=== PATIENT | male | born 1935 | race Caucasian/White ===

== ENCOUNTER 2021-09-25 15:08 | Inpatient (IN) ==
--- NOTE | 2021-09-25 15:20 | Emergency Department Note ---
Impression & Plan Closed hip fracture, Fall, RAFY (acute kidney injury) ED Provider Note NAME: TUYET OBREGON AGE: 86 SEX: M : 1935 ARRIVES VIA: Ambulance INFORMANT: Patient ED PROVIDER(S): Phillip Najera DO CHIEF COMPLAINT: hip/leg pain HPI: Patient is an 86-year-old male who presents to the ER with past medical history sinus bradycardia, atrial bigeminy, hypertension, and esophageal carcinoma who was getting up from the chair and fell. He lost his balance and fell. He denies hitting his head or neck. He does not feel dizzy or lightheaded. He has no chest pain or shortness of breath. No belly pain. Notes pain is focal in his left hip. He notes he was sitting there for a while and went to get up quickly and lost his balance. No other complaints at this time. ROS: See above HPI for pertinent positives & negatives. A total of 10 systems reviewed and were otherwise negative. PAST MEDICAL HISTORY:See Below PAST SURGICAL HISTORY:See Below FAMILY HISTORY:See Below SOCIAL HISTORY:See Below HOME MEDICATIONS:See Below ALLERGIES:See Below VITALS:See Below PHYSICAL EXAMINATION: GENERAL: alert, well appearing, well nourished, no distress, non-toxic HEAD: normal cephalic, atraumatic EYE EXAM: normal conjunctiva, PERRL and EOM's grossly intact NECK: non-tender CHEST: stable to compression anteriorly and posteriorly LUNGS: clear to auscultation. Normal chest wall mechanics HEART: no murmurs, S1 normal and S2 normal ABDOMEN: abdomen soft, non-tender, normo-active bowel sounds, no masses, no rebound or guarding. PELVIS: stable to compression anteriorly and posteriorly BACK: Back is symmetrical on inspection and there is no deformity, no midline t enderness, no CVA tenderness. UPPER EXTREMITIES: full active and passive range of motion of all joints without tenderness to palpation LOWER EXTREMITIES: No tenderness throughout entire right lower extremity. DPs and PTs 2 out of 4 bilaterally. Tenderness with palpation over the left hip and with range of motion of the left hip. No tenderness throughout. Mid or distal femur, knee, tib-fib or left ankle. NEURO EXAM: Normal sensorium, cranial nerves II-XII grossly intact, normal speech, no gross weakness of arms, no gross weakness of legs. GCS: 15. MEDICAL DECISION MAKING: Patient is an 86-year-old male who presents the ER following a mechanical fall onto his left hip. Denies hitting his head or neck.IV was established blood work was obtained. Labs show no significant leukocytosis. Mild anemia 10. BMP with creatinine 1.6. LFTs bilirubin was unremarkable. Lipase was normal. COVID was negative. X-rays of the hip pelvis and left femur show left femoral neck fracture. Patient initially declined pain medications but eventually was agreeable and was given IV morphine. He was updated bedside. Discussed with the hospitalist Dr. Eng for further evaluation. Did not consult orthopedics as he initially was unsure of which group you want to follow-up with. Triage Nursing notes reviewed. Limited review of prior medical records performed Vital Signs: reviewed and remarkable for no significant abnormalities Differential diagnosis: Differential diagnoses include major intracranial, cervical, spinal, thoracic, abdominal, pelvic and neurologic injury. Fracture, contusion, sprain, strain, l aceration, abrasions included as well. ER treatment provided: See below Diagnostics interpreted by me: ECG:Sinus rhythm rate of 76 Normal axis PVCs present QTC 425 Cardiac Monitoring: An order was placed for continuous cardiac monitoring. The monitor shows a rate of 80 with sinus rhythm. Laboratory studies: As stated above and show below. Imaging studies: Trays of the left femur, hip and pelvis show left femoral neck fracture Consultation(s): D/w Dr. Barfield for further evaluation Procedures: none Critical Care: None Past Med/Surg History Medical History Altered bowel habits Atrial bigeminy BPPV (benign paroxysmal positional vertigo) Constipation CHRONIC PROBLEM Dysphagia Elevated PSA History of colon polyps History of nonmelanoma skin cancer Hypertension Ileus Loss of appetite Nocturia Premature supraventricular beats Right Achilles tendinitis Sinus bradycardia Varicose vein of leg LEFT - NO PROBLEMS WITH Weight loss Surgical History H/O esophagogastroduodenoscopy History of cataract surgery bilt History of colonoscopy Hx of tonsillectomy S/P hernia repair Bilateral inguinal hernia repair S/P rotator cuff repair HX RIGHT S/P tooth extraction HX Status post Mohs surgery Family History Father , 93yo Diabetes Colonic polyp No cancer Mother , 87yo Alzheimer disease Daughter No problems noted. 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 Required: No Beliefs That Will Affect Care: None marital status: Current Living Situation: Spouse 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 How many Children do You have: 0 Feels Safe at Home: Yes Childhood Exposure to Second-Hand Smoke: No caffeine: Yes (coffee) during the past year weight has: decreased > 10 lbs Dental Care, Regularly: Yes Physical Activity Frequency: 1-2 Times per Week Physical Activity Frequency Comment: walking Seatbelt Use: always Sunscreen Use: Yes Do you think of yourself as: straight/heterosexual Assistive Devices: Glasses Allergies Allergies Allergy/AdvReac Type Severity Reaction Status Date / Time No Known Allergies Allergy Verified 08/17/21 10:59 Home Meds Home Medications Medication Instructions Recorded Confirmed wheat dextrin 3 gram/3.5 gram oral 1 pkt PO QPM 12/11/18 08/17/21 powder (Best Fiber) ondansetron HCl 8 mg tablet 8 mg PO Q8H PRN 07/24/21 08/17/21 prochlorperazine maleate 10 mg 10 mg PO Q8H PRN 07/24/21 08/17/21 tablet (Compazine) polyethylene glycol 3350 17 17 g PO DAILY PRN 08/07/21 08/17/21 gram/dose oral powder (Miralax) loratadine 10 mg tablet (Claritin) 10 mg PO DAILY 08/17/21 08/17/21 pantoprazole 40 mg tablet,delayed 40 mg PO BID 09/25/21 release (Protonix) Previous Rx's Medication Instructions Recorded amlodipine 5 mg tablet 5 mg PO QPM #90 tabs 06/27/21 trazodone 50 mg tablet 50 mg PO DAILY #90 tabs 07/05/21 lisinopril 5 mg tablet 5 mg PO QPM #90 tabs 08/22/21 Results & Data (ED) Vital Signs Vital Signs - 24 hr 09/25/21 15:20 09/25/21 15:16 09/25/21 15:25 Temperature 36.7 C Temperature Source Oral Pulse Rate 82 84 Pulse Rate [Apical] 82 Pulse Rate from SpO2 Sensor Respiratory Rate 16 17 Respiratory Effort / Characteristics Non-Labored Spontaneous Non-Labored Spontaneous Respiratory Depth Normal Normal Blood Pressure 147/75 H Blood Pressure [Right Arm] Blood Pressure Mean 99 Blood Pressure Mean [Right Arm] Pulse Oximetry 98 100 100 Oxygen Delivery Method Room Air Room Air Room Air Sepsis Recent Fever Within 48 Hours No Sepsis New/Unexplained Change in Mental Status No Sepsis Action Taken by Nursing No Action Required 09/25/21 15:30 09/25/21 15:30 09/25/21 16:00 Temperature Temperature Source Pulse Rate 88 Pulse Rate [Apical] Pulse Rate from SpO2 Sensor Respiratory Rate 22 Respiratory Effort / Characteristics Respiratory Depth Blood Pressure 159/80 H 132/71 Blood Pressure [Right Arm] Blood Pressure Mean 106 91 Blood Pressure Mean [Right Arm] Pulse Oximetry Oxygen Delivery Method Sepsis Recent Fever Within 48 Hours Sepsis New/Unexplained Change in Mental Status Sepsis Action Taken by Nursing 09/25/21 16:00 09/25/21 16:30 09/25/21 16:30 Temperature Temperature Source Pulse Rate 78 74 Pulse Rate [Apical] Pulse Rate from SpO2 Sensor 70 73 Respiratory Rate 16 19 Respiratory Effort / Characteristics Respiratory Depth Blood Pressure 132/60 Blood Pressure [Right Arm] Blood Pressure Mean 84 Blood Pressure Mean [Right Arm] Pulse Oximetry 97 100 Oxygen Delivery Method Sepsis Recent Fever Within 48 Hours Sepsis New/Unexplained Change in Mental Status Sepsis Action Taken by Nursing 09/25/21 17:30 09/25/21 17:00 09/25/21 17:00 Temperature Temperature Source Pulse Rate 76 Pulse Rate [Apical] 83 Pulse Rate from SpO2 Sensor 76 Respiratory Rate 22 21 Respiratory Effort / Characteristics Non-Labored Spontaneous Respiratory Depth Normal Blood Pressure 135/77 Blood Pressure [Right Arm] 142/109 H Blood Pressure Mean 96 Blood Pressure Mean [Right Arm] 120 Pulse Oximetry 100 100 Oxygen Delivery Method Room Air Sepsis Recent Fever Within 48 Hours Sepsis New/Unexplained Change in Mental Status Sepsis Action Taken by Nursing 09/25/21 17:30 09/25/21 17:30 09/25/21 18:00 Temperature Temperature Source Pulse Rate 78 Pulse Rate [Apical] Pulse Rate from SpO2 Sensor 78 Respiratory Rate 23 Respiratory Effort / Characteristics Respiratory Depth Blood Pressure 142/109 H 121/61 Blood Pressure [Right Arm] Blood Pressure Mean 120 81 Blood Pressure Mean [Right Arm] Pulse Oximetry 100 Oxygen Delivery Method Sepsis Recent Fever Within 48 Hours Sepsis New/Unexplained Change in Mental Status Sepsis Action Taken by Nursing 09/25/21 18:00 Temperature Temperature Source Pulse Rate 75 Pulse Rate [Apical] Pulse Rate from SpO2 Sensor 75 Respiratory Rate 18 Respiratory Effort / Characteristics Respiratory Depth Blood Pressure Blood Pressure [Right Arm] Blood Pressure Mean Blood Pressure Mean [Right Arm] Pulse Oximetry 100 Oxygen Delivery Method Sepsis Recent Fever Within 48 Hours Sepsis New/Unexplained Change in Mental Status Sepsis Action Taken by Nursing Laboratory Data Result diagrams: 09/25/21 15:28 09/25/21 15:28 Lab Results 09/25/21 09/25/21 09/25/21 Range/Units 15:28 15:28 17:42 WBC 7.54 (4.8-10.8) K/ul RBC 3.03 L (4.63-6.08) M/uL Hgb 10.2 L (14.0-18.0) g/dl Hct 29.9 L (40.1-51.0) % MCV 98.7 (80.0-100.0) fL MCH 33.7 (25.0-34.0) pg MCHC 34.1 (32.0-36.0) g/dL RDW Std Deviation 57.1 H (36.4-46.3) fL RDW Coeff of Stefan 15.9 H (11.5-14.5) % Plt Count 214 (130-400) K/uL MPV 8.7 L (9.4-12.4) fL Immature Gran % (Auto) 0.7 % Neut % (Auto) 66.9 % Lymph % (Auto) 21.9 % [place] % (Auto) 10.3 % Eos % (Auto) 0.1 % Baso % (Auto) 0.1 % Neut # (Auto) 5.04 (1.4-6.5) K/uL Lymph # (Auto) 1.65 (1.2-3.4) K/uL [place] # (Auto) 0.78 (0.24-0.82) K/uL Eos # (Auto) 0.01 (0-0.50) K/uL Baso # (Auto) 0.01 (0-0.2) K/uL Immature Gran # (Auto) 0.05 H (0.00-0.02) K/uL Sodium 135 L (136-145) mmol/L Potassium 4.6 (3.5-5.1) mmol/L Chloride 104 (98-107) mmol/L Carbon Dioxide 23 (21-32) mmol/L Anion Gap 8 (3-11) BUN 42 H (6-23) mg/dl Creatinine 1.64 H (0.6-1.4) mg/dl Est Cr Clr Drug Dosing 33.2 ml/min Est GFR ( Amer) 43.9 ml/min Est GFR (Non-Af Amer) 37.8 ml/min BUN/Creatinine Ratio 25.6 H (10-20) Glucose 103 H (70-99(Fasting)) mg/dl Calcium 9.4 (8.5-10.1) mg/dl Total Bilirubin 0.5 (0.2-1.0) mg/dl AST 14 (13-39) U/L ALT 15 (7-52) U/L Alkaline Phosphatase 33 L (34-104) U/L Total Protein 6.3 (6.0-8.3) gm/dl Albumin 3.7 (3.4-5.0) gm/dl Globulin 2.6 (2.5-4.0) gm/dl Albumin/Globulin Ratio 1.4 (0.9-2) Lipase 53 (11-82) U/L SARS-CoV-2, RNA, NAAT NEGATIVE (NEGATIVE) Administered Medications Discontinued Medications Morphine Sulfate (Morphine Sulfate 4 Mg/Ml 1 Ml Carp\\Vial) 4 mg IV NOW STA Stop: 09/25/21 18:29 Last Admin: 09/25/21 18:33 Dose: 4 mg Documented By: RDD Ondansetron HCl (Ondansetron Inj 2 Mg/Ml 2 Ml Vial) 4 mg IV NOW STA Stop: 09/25/21 18:29 Last Admin: 09/25/21 18:35 Dose: 4 mg Documented By: RDD Imaging Data Radiologist's Impression: Chest X-Ray 09/25/21 15:16 XR chest 1V portable CLINICAL HISTORY: Chest Pain. COMPARISON STUDY: No previous studies for comparison. TECHNIQUE: 1 view of the chest FINDINGS: Single frontal view of the chest demonstrates the cardiomediastinal silhouette to be within normal limits. The lungs are clear of alveolar opacities. There is no evidence for pleural effusion. There is no evidence for vascular congestion. There is no acute osseous pathology. IMPRESSION: 1. No acute cardiopulmonary disease. ACT 112: Negative or not required by law. Electronically signed by: Andrzej Plascencia M.D. 09/25/2021 5:00 PM Femur X-Ray 09/25/21 15:16 XR femur LT 2V routine CLINICAL HISTORY: l leg pain. Status post fall COMPARISON STUDY: No previous studies for comparison. TECHNIQUE: AP and lateral left femur views FINDINGS: This is again a limited examination due to external rotation of the hip. Bones: There is again suspicion of a fracture through the base of the left femoral neck. No other evidence for fracture is seen. There is no lytic or blastic lesion. Joints: There is again mild narrowing of the hip joint space. Joint space narrowing and degenerative changes are also seen involving the knee joint. There is no evidence for an intra-articular effusion at the knee joint. The bones are in anatomic alignment. Soft tissues: There is no focal soft tissue abnormality. There is no radiopaque foreign body. IMPRESSION: 1. The study is again limited by external rotation at the hip. There is again suspicion of a fracture through the base of the left femoral neck. ACT 112: Negative or not required by law. Electronically signed by: Andrzej Plascencia M.D. 09/25/2021 5:00 PM Hip/Pelvis X-Ray 09/25/21 15:16 XR hip LT 2V w pelvis CLINICAL HISTORY: l hp pain. Status post fall COMPARISON STUDY: No previous studies for comparison. TECHNIQUE: AP pelvis and single view of the left hip FINDINGS: Bones: This is a limited examination as the left hip is externally rotated. There is suspicion of a fracture through the base of the femoral neck. Standard hip films with internal fixation are necessary. The remaining bones are intact. There is no lytic or blastic lesion. Joints: Mild narrowing of the left hip joint space superiorly. There is moderate narrowing of the joint space on the right. The bones are in anatomic alignment. Soft tissues: There is no focal soft tissue abnormality. There is no radiopaque foreign body. IMPRESSION: 1. Limited examination due to external rotation of the left hip. Suspicion of a fracture of the base of the left femoral neck. Standard left hip films with internal fixation are necessary. CT of the pelvis/left hip could also be obtai marin for further evaluation ACT 112: Negative or not required by law. Electronically signed by: Andrzej Plascencia M.D. 09/25/2021 4:58 PM Discharge Plan Visit Data Chief Complaint: Fall Stated Complaint: Fall ED Provider: Phillip Najera Discharge Problem: Closed hip fracture, Fall, RAFY (acute kidney injury) Forms Stand Alone Forms: [facility] [employer] Prescriptions Prescriptions: No Action ondansetron HCl 8 mg tablet 8 mg PO Q8H PRN prochlorperazine maleate [Compazine] 10 mg tablet 10 mg PO Q8H PRN polyethylene glycol 3350 [Miralax] 17 gram/dose powder 17 g PO DAILY PRN loratadine [Claritin] 10 mg tablet 10 mg PO DAILY amlodipine 5 mg tablet 5 mg PO QPM Qty: 90 1RF trazodone 50 mg tablet 50 mg PO DAILY Qty: 90 3RF lisinopril 5 mg tablet 5 mg PO QPM Qty: 90 3RF Best Fiber 3 gram/3.5 gram powder 1 pkt PO QPM pantoprazole [Protonix] 40 mg tablet,delayed release (DR/EC) 40 mg PO BID Referrals Referrals: Adalberto Salcido DO [Primary Care Provider] -
[2021-09-25 15:36] LABS: Basophils # (auto) 0.01 K/uL (0-0.2); Basophils % (auto) 0.1 %; Eosinophils # (auto) 0.01 K/uL (0-0.50); Eosinophils % (auto) 0.1 %; Hematocrit (blood only) 29.9 % (40.1-51.0); Hemoglobin 10.2 g/dl (14.0-18.0); Immature Granulocytes # (auto) 0.05 K/uL (0.00-0.02); Immature Granulocytes % (auto) 0.7 %; Lymphocytes # (auto) 1.65 K/uL (1.2-3.4); Lymphocytes % (auto) 21.9 %; Mean Corpuscular Hemoglobin 33.7 pg (25.0-34.0); Mean Corpuscular Hgb Conc 34.1 g/dL (32.0-36.0); Mean Corpuscular Volume 98.7 fL (80.0-100.0); Mean Platelet Volume 8.7 fL (9.4-12.4); Monocytes # (auto) 0.78 K/uL (0.24-0.82); Monocytes % (auto) 10.3 %; Neutrophils # (auto) 5.04 K/uL (1.4-6.5); Neutrophils % (auto) 66.9 %; Platelet Count 214 K/uL (130-400); RDW Coefficient of Variation 15.9 % (11.5-14.5); RDW Standard Deviation 57.1 fL (36.4-46.3); Red Blood Count 3.03 M/uL (4.63-6.08); White Blood Count 7.54 K/ul (4.8-10.8)
[2021-09-25 15:54] LABS: Albumin Globulin Ratio 1.4 (0.9-2); Albumin Level 3.7 gm/dl (3.4-5.0); BUN Creatinine Ratio 25.6 (10-20); Bilirubin,Total 0.5 mg/dl (0.2-1.0); Calcium 9.4 mg/dl (8.5-10.1); Creatinine Clr Calc Pharmacy 33.2 ml/min; Est GFR (African American) 43.9 ml/min; Est GFR (Non-African American) 37.8 ml/min; Globulin 2.6 gm/dl (2.5-4.0); Potassium 4.6 mmol/L (3.5-5.1); Total Protein 6.3 gm/dl (6.0-8.3)
--- NOTE | 2021-09-25 17:00 | XRay Report ---
XR hip LT 2V w pelvis CLINICAL HISTORY: l hp pain. Status post fall COMPARISON STUDY: No previous studies for comparison. TECHNIQUE: AP pelvis and single view of the left hip FINDINGS: Bones: This is a limited examination as the left hip is externally rotated. There is suspicion of a f racture through the base of the femoral neck. Standard hip films with internal fixation are necessary . The remaining bones are intact. There is no lytic or blastic lesion. Joints: Mild narrowing of the left hip joint space superiorly. There is moderate narrowing of the makenna nt space on the right. The bones are in anatomic alignment. Soft tissues: There is no focal soft tissue abnormality. There is no radiopaque foreign body. IMPRESSION: 1. Limited examination due to external rotation of the left hip. Suspicion of a fracture of the base of the left femoral neck. Standard left hip films with internal fixation are necessary. CT of the pel vis/left hip could also be obtained for further evaluation ACT 112: Negative or not required by law. Electronically signed by: Andrzej Plascencia M.D. 09/25/2021 4:58 PM
--- NOTE | 2021-09-25 17:01 | XRay Report ---
XR femur LT 2V routine CLINICAL HISTORY: l leg pain. Status post fall COMPARISON STUDY: No previous studies for comparison. TECHNIQUE: AP and lateral left femur views FINDINGS: This is again a limited examination due to external rotation of the hip. Bones: There is again suspicion of a fracture through the base of the left femoral neck. No other tyson dence for fracture is seen. There is no lytic or blastic lesion. Joints: There is again mild narrowing of the hip joint space. Joint space narrowing and degenerative changes are also seen involving the knee joint. There is no evidence for an intra-articular effusion at the knee joint. The bones are in anatomic alignment. Soft tissues: There is no focal soft tissue abnormality. There is no radiopaque foreign body. IMPRESSION: 1. The study is again limited by external rotation at the hip. There is again suspicion of a fracture through the base of the left femoral neck. ACT 112: Negative or not required by law. Electronically signed by: Andrzej Plascencia M.D. 09/25/2021 5:00 PM
--- NOTE | 2021-09-25 17:01 | XRay Report ---
XR chest 1V portable CLINICAL HISTORY: Chest Pain. COMPARISON STUDY: No previous studies for comparison. TECHNIQUE: 1 view of the chest FINDINGS: Single frontal view of the chest demonstrates the cardiomediastinal silhouette to be within normal li mits. The lungs are clear of alveolar opacities. There is no evidence for pleural effusion. There is no evidence for vascular congestion. There is no acute osseous pathology. IMPRESSION: 1. No acute cardiopulmonary disease. ACT 112: Negative or not required by law. Electronically signed by: Andrzej Plascencia M.D. 09/25/2021 5:00 PM
--- NOTE | 2021-09-25 17:48 | History & Physical Report ---
Date of Service September 25, 2021 Assessment & Plan (1) Femoral neck fracture: Plan: I did review the films personally and see the patient has a displaced left femoral neck fracture Will admit to a general medical bed We will keep n.p.o. after midnight We will asked orthopedics to evaluate for possible surgical intervention (2) Esophageal adenocarcinoma: Plan: Patient is currently being evaluated, I did review records and see that the patient is typically treated by Dr. Gloria. I will hold off on further evaluation for the time being while more immediate medical issues are addressed Patient states that he is currently on a soft diet, has been slowly advance from thick liquids and feels he can handle mechanical soft. Therefore will order as appropriate, will keep n.p.o. after midnight as noted above. (3) Hypertension: Plan: Continue medications as ordered including lisinopril, amlodipine Plan I did discuss CODE STATUS with the patient, he would like to be a DNR/DNI History of Present Illness Chief Complaint: Fall Primary Care Provider: Adalberto Salcido DO This is an 86-year-old male with past medical history of a distal esophageal adenocarcinoma being treated by [place] that presents status post fall. Patient is accompanied by his and a good historian. Patient is live in independent living at the [facility]. Patient states that he tends to get orthostatic when he stands and typically will change positions slowly. However, earlier today he stood up quickly. He does not think he passed out but he does not have any recollection outside of being on the floor. He says it happened very quickly. He landed on his left side had significant pain in his hip and pelvis after this. On evaluation emergency room, patient was found to have a displaced left femoral neck fracture. Patient is now being admitted for further treatment of this. Patient tells me that he does not have significant pain unless he moves. He denies any other systemic symptoms such as chest pain, shortness of breath, palpitations, fever or chills. Of note, patient tells me that he had an appointment for surgical evaluation and a PET scan at [facility] on 09/28 and was told that he will likely need to reschedule these appointments. Allergies Allergy/AdvReac Type Severity Reaction Status Date / Time No Known Allergies Allergy Verified 08/17/21 10:59 Home Medications Medication Instructions Recorded Confirmed Type wheat dextrin 3 gram/3.5 gram oral 1 pkt PO QPM 12/11/18 08/17/21 History powder (Best Fiber) pantoprazole 40 mg tablet,delayed 40 mg PO DAILY #30 tabs 05/31/21 08/17/21 Rx release (Protonix) amlodipine 5 mg tablet 5 mg PO QPM #90 tabs 06/27/21 08/17/21 Rx trazodone 50 mg tablet 50 mg PO DAILY #90 tabs 07/05/21 08/17/21 Rx ondansetron HCl 8 mg tablet 8 mg PO Q8H PRN 07/24/21 08/17/21 History prochlorperazine maleate 10 mg 10 mg PO Q8H PRN 07/24/21 08/17/21 History tablet (Compazine) dexamethasone 4 mg tablet 4 mg PO .COMPLEX 08/07/21 08/17/21 History polyethylene glycol 3350 17 17 g PO DAILY PRN 08/07/21 08/17/21 History gram/dose oral powder (Miralax) loratadine 10 mg tablet (Claritin) 10 mg PO DAILY 08/17/21 08/17/21 History lisinopril 5 mg tablet 5 mg PO QPM #90 tabs 08/22/21 Rx Past Med/Surg History Medical History Altered bowel habits Atrial bigeminy BPPV (benign paroxysmal positional vertigo) Constipation CHRONIC PROBLEM Dysphagia Elevated PSA History of colon polyps History of nonmelanoma skin cancer Hypertension Ileus Loss of appetite Nocturia Premature supraventricular beats Right Achilles tendinitis Sinus bradycardia Varicose vein of leg LEFT - NO PROBLEMS WITH Weight loss Surgical History H/O esophagogastroduodenoscopy History of cataract surgery bilt History of colonoscopy Hx of tonsillectomy S/P hernia repair Bilateral inguinal hernia repair S/P rotator cuff repair HX RIGHT S/P tooth extraction HX Status post Mohs surgery Family History Father , 93yo Diabetes Colonic polyp No cancer Mother , 87yo Alzheimer disease Daughter No problems noted. 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 Beliefs That Will Affect Care: None marital status: Current Living Situation: Spouse 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 How many Children do You have: 0 Feels Safe at Home: Yes Childhood Exposure to Second-Hand Smoke: No caffeine: Yes (coffee) during the past year weight has: decreased > 10 lbs Dental Care, Regularly: Yes Physical Activity Frequency: 1-2 Times per Week Physical Activity Frequency Comment: walking Seatbelt Use: always Sunscreen Use: Yes Do you think of yourself as: straight/heterosexual Assistive Devices: Glasses Review of Systems Constitutional: no fever, no chills, no weakness, no weight loss and no weight gain Eyes: as per Subjective / HPI Respiratory: no cough, no chest congestion, no dyspnea and no dyspnea on exertion Cardiovascular: + orthopnea and + lightheadedness; no chest pain, no palpitations, no syncope and no edema Gastrointestinal: no abdominal pain, no nausea, no vomiting, no constipation and no diarrhea/loose stools Musculoskeletal: + joint pain; no back pain, no neck pain, no stiffness and no myalgia Integumentary: no rash Neurologic: no gait abnormality, no unsteadiness, no falls and no generalized weakness Physical Exam Constitutional: cooperative; no acute distress Neck: trachea midline, no thyromegaly Respiratory: normal respiratory effort Auscultation: lungs clear to auscultation bilaterally; no crackles, no rales, no rhonchi and no wheezes Cardiovascular: Rate/Rhythm: regular rate and regular rhythm Heart Sounds: normal S1 and normal S2 Gastrointestinal (Abdomen): Inspection/Auscultation: abdomen normal to inspection Percussion/Palpation: abdomen soft; abdomen nontender, no guarding, abdomen not rigid and no hepatosplenomegaly Musculoskeletal: Left extremity externally rotated, did not examine further secondary to patient discomfort Skin: no rashes, warm and dry Results & Data Results & Data ([facility]) Vital Signs (Past 12 Hours) Vital Signs Temp Pulse Pulse Resp BP Pulse Ox O2 Del Method 09/25/21 16:30 74 19 100 09/25/21 16:30 132/60 09/25/21 16:00 78 16 97 09/25/21 16:00 132/71 09/25/21 15:30 88 22 09/25/21 15:30 159/80 H 09/25/21 15:25 82 17 100 Room Air 09/25/21 15:16 84 100 Room Air 09/25/21 15:20 36.7 C 82 16 147/75 H 98 Room Air Laboratory Results Laboratory Results WBC 7.54 K/ul (4.8-10.8) 09/25/21 15:28 RBC 3.03 M/uL (4.63-6.08) L 09/25/21 15:28 Hgb 10.2 g/dl (14.0-18.0) L 09/25/21 15:28 Hct 29.9 % (40.1-51.0) L 09/25/21 15:28 MCV 98.7 fL (80.0-100.0) 09/25/21 15:28 MCH 33.7 pg (25.0-34.0) 09/25/21 15:28 MCHC 34.1 g/dL (32.0-36.0) 09/25/21 15:28 RDW Std Deviation 57.1 fL (36.4-46.3) H 09/25/21 15:28 RDW Coeff of Stefan 15.9 % (11.5-14.5) H 09/25/21 15:28 Plt Count 214 K/uL (130-400) 09/25/21 15:28 MPV 8.7 fL (9.4-12.4) L 09/25/21 15:28 Immature Gran % (Auto) 0.7 % 09/25/21 15:28 Neut % (Auto) 66.9 % 09/25/21 15:28 Lymph % (Auto) 21.9 % 09/25/21 15:28 [place] % (Auto) 10.3 % 09/25/21 15:28 Eos % (Auto) 0.1 % 09/25/21 15:28 Baso % (Auto) 0.1 % 09/25/21 15:28 Neut # (Auto) 5.04 K/uL (1.4-6.5) 09/25/21 15: Lymph # (Auto) 1.65 K/uL (1.2-3.4) 09/25/21 15:28 [place] # (Auto) 0.78 K/uL (0.24-0.82) 09/25/21 15: Eos # (Auto) 0.01 K/uL (0-0.50) 09/25/21 15:28 Baso # (Auto) 0.01 K/uL (0-0.2) 09/25/21 15: Immature Gran # (Auto) 0.05 K/uL (0.00-0.02) H 09/25/21 15:28 Sodium 135 mmol/L (136-145) L 09/25/21 15: Potassium 4.6 mmol/L (3.5-5.1) 09/25/21 15: Chloride 104 mmol/L (98-107) 09/25/21 15:28 Carbon Dioxide 23 mmol/L (21-32) 09/25/21 15:28 Anion Gap 8 (3-11) 09/25/21 15:28 BUN 42 mg/dl (6-23) H 09/25/21 15:28 Creatinine 1.64 mg/dl (0.6-1.4) H 09/25/21 15:28 Est Cr Clr Drug Dosing 33.2 ml/min 09/25/21 15:28 Est GFR ( Amer) 43.9 ml/min 09/25/21 15:28 Est GFR (Non-Af Amer) 37.8 ml/min 09/25/21 15:28 BUN/Creatinine Ratio 25.6 (10-20) H 09/25/21 15:28 Glucose 103 mg/dl (70-99(Fasting)) H 09/25/21 15:28 Calcium 9.4 mg/dl (8.5-10.1) 09/25/21 15:28 Total Bilirubin 0.5 mg/dl (0.2-1.0) 09/25/21 15:28 AST 14 U/L (13-39) 09/25/21 15:28 ALT 15 U/L (7-52) 09/25/21 15:28 Alkaline Phosphatase 33 U/L (34-104) L 09/25/21 15:28 Total Protein 6.3 gm/dl (6.0-8.3) 09/25/21 15:28 Albumin 3.7 gm/dl (3.4-5.0) 09/25/21 15:28 Globulin 2.6 gm/dl (2.5-4.0) 09/25/21 15:28 Albumin/Globulin Ratio 1.4 (0.9-2) 09/25/21 15:28 Lipase 53 U/L (11-82) 09/25/21 15:28 Impressions Chest X-Ray 09/25/21 15:16 XR chest 1V portable CLINICAL HISTORY: Chest Pain. COMPARISON STUDY: No previous studies for comparison. TECHNIQUE: 1 view of the chest FINDINGS: Single frontal view of the chest demonstrates the cardiomediastinal silhouette to be within normal limits. The lungs are clear of alveolar opacities. There is no evidence for pleural effusion. There is no evidence for vascular congestion. There is no acute osseous pathology. IMPRESSION: 1. No acute cardiopulmonary disease. ACT 112: Negative or not required by law. Electronically signed by: Andrzej Plascencia M.D. 09/25/2021 5:00 PM Femur X-Ray 09/25/21 15:16 XR femur LT 2V routine CLINICAL HISTORY: l leg pain. Status post fall COMPARISON STUDY: No previous studies for comparison. TECHNIQUE: AP and lateral left femur views FINDINGS: This is again a limited examination due to external rotation of the hip. Bones: There is again suspicion of a fracture through the base of the left femoral neck. No other evidence for fracture is seen. There is no lytic or blastic lesion. Joints: There is again mild narrowing of the hip joint space. Joint space na rrowing and degenerative changes are also seen involving the knee joint. There is no evidence for an intra-articular effusion at the knee joint. The bones are in anatomic alignment. Soft tissues: There is no focal soft tissue abnormality. There is no radiopaque foreign body. IMPRESSION: 1. The study is again limited by external rotation at the hip. There is again suspicion of a fracture through the base of the left femoral neck. ACT 112: Negative or not required by law. Electronically signed by: Andrzej Plascencia M.D. 09/25/2021 5:00 PM Hip/Pelvis X-Ray 09/25/21 15:16 XR hip LT 2V w pelvis CLINICAL HISTORY: l hp pain. Status post fall COMPARISON STUDY: No previous studies for comparison. TECHNIQUE: AP pelvis and single view of the left hip FINDINGS: Bones: This is a limited examination as the left hip is externally rotated. There is suspicion of a fracture through the base of the femoral neck. Standard hip films with internal fixation are necessary. The remaining bones are intact. There is no lytic or blastic lesion. Joints: Mild narrowing of the left hip joint space superiorly. There is moderate narrowing of the joint space on the right. The bones are in anatomic alignment. Soft tissues: There is no focal soft tissue abnormality. There is no radiopaque foreign body. IMPRESSION: 1. Limited examination due to external rotation of the left hip. Suspicion of a fracture of the base of the left femoral neck. Standard left hip films with internal fixation are necessary. CT of the pelvis/left hip could also be obtained for further evaluation ACT 112: Negative or not required by law. Electronically signed by: Andrzej Plascencia M.D. 09/25/2021 4:58 PM PG Care Time/CCT Total # of Minutes Spent Total Time Spent with Patient: Total time spent is greater than 50% in coordination of care (as documented) at patient's floor/unit and/or counseling patient: Coding Level of Care Code 93437 Initial Inpt Care Lvl 3 Diagnoses Femoral neck fracture S72.009A Esophageal adenocarcinoma C15.9 Hypertension I10
[2021-09-25] MEDS ORDERED: ONDANSETRON INJ 2 MG/ML 2 ML VIAL IV STA (18:28)
[2021-09-25] MEDS ORDERED: MoRPHine SULFATE 4 MG/ML 1 ML CARP\\VIAL IV STA (18:28)
[2021-09-25] MEDS ORDERED: HYDROmorphone INJ 0.5 MG/0.5 ML SYR IV PRN (23:17)
[2021-09-25] MEDS ORDERED: lisinopril 5 MG TAB PO SCH (23:17)
[2021-09-25] MEDS ORDERED: SODIUM CHLORIDE 0.9% 1000ML 1,000 ML IV SCH (23:45)
[2021-09-25] MEDS: HEPARIN SOD 5,000 UNIT/0.5 ML VIAL SQ SCH (23:51)
[2021-09-25] MEDS: amLODIPine BESYLATE 5 MG TAB PO SCH (23:51)
[2021-09-25] MEDS: PSYLLIUM or GUAR GUM FIBER POWDER PACKET PO SCH (23:51)
[2021-09-26] MEDS: HEPARIN SOD 5,000 UNIT/0.5 ML VIAL SQ SCH ×2 (06:15→13:02)
--- NOTE | 2021-09-26 06:16 | Electrocardiogram Report ---
Test Reason : Blood Pressure : / mmHG Vent. Rate : 076 BPM Atrial Rate : 076 BPM P-R Int : 182 ms QRS Dur : 072 ms QT Int : 378 ms P-R-T Axes : 044 045 058 degrees QTc Int : 425 ms Poor data quality, interpretation may be adversely affected Sinus rhythm with sinus arrhythmia with occasional Premature ventricular complexes Otherwise normal ECG When compared with ECG of 31-OCT-1999 20:38, Premature ventricular complexes are now Present Confirmed by Dami Russo ([id number]) on 09/26/2021 6:16:18 AM Referred By: REFERRED SELF Confirmed By:Dami Russo
[2021-09-26 06:45] LABS: Basophils # (auto) 0.02 K/uL (0-0.2); Basophils % (auto) 0.2 %; Eosinophils # (auto) 0.03 K/uL (0-0.50); Eosinophils % (auto) 0.3 %; Hematocrit (blood only) 29.6 % (40.1-51.0); Hemoglobin 10.1 g/dl (14.0-18.0); Immature Granulocytes # (auto) 0.05 K/uL (0.00-0.02); Immature Granulocytes % (auto) 0.6 %; Lymphocytes # (auto) 1.46 K/uL (1.2-3.4); Lymphocytes % (auto) 16.8 %; Mean Corpuscular Hemoglobin 33.7 pg (25.0-34.0); Mean Corpuscular Hgb Conc 34.1 g/dL (32.0-36.0); Mean Corpuscular Volume 98.7 fL (80.0-100.0); Mean Platelet Volume 9.2 fL (9.4-12.4); Monocytes # (auto) 1.01 K/uL (0.24-0.82); Monocytes % (auto) 11.6 %; Neutrophils # (auto) 6.14 K/uL (1.4-6.5); Neutrophils % (auto) 70.5 %; Platelet Count 213 K/uL (130-400); RDW Coefficient of Variation 15.4 % (11.5-14.5); RDW Standard Deviation 55.8 fL (36.4-46.3); White Blood Count 8.71 K/ul (4.8-10.8)
[2021-09-26 06:55] LABS: INR 1.1 (0.9-1.1); Prothrombin Time 11.4 Seconds (9.0-12.0)
[2021-09-26 07:10] LABS: BUN Creatinine Ratio 24.1 (10-20); Creatinine Clr Calc Pharmacy 38.7 ml/min; Est GFR (African American) 54.5 ml/min; Magnesium 1.8 mg/dl (1.7-2.4); Potassium 4.5 mmol/L (3.5-5.1)
[2021-09-26] MEDS ORDERED: PANTOprazole 40 MG TAB PO SCH (09:00)
[2021-09-26] MEDS ORDERED: PANTOprazole 40 MG in SYRINGE 0 ML IV SCH (09:15)
--- NOTE | 2021-09-26 12:43 | Hospitalist Progress Note ---
Date of Service September 26, 2021 Assessment & Plan (1) Femoral neck fracture: Plan: 86 year old male w/ esophageal adenocarcinoma, HTN, BPPV, and elevated PSA, and parox afib who presents s/; fall and has left femoral neck fracture. Per hip xray, Suspicion of a fracture of the base of the left femoral neck. Ortho consulted. Patient went to OR today and is now s/p bipolar hip hemiarthroplasty of his left hip. Pain control: Srinivasa tylenol 1000mg PO TID. Oxycodone 5mg q6h prn for 7-10 pain (0.5 mg IV Dilaudid q6 prn if not tolerating PO). (2) Esophageal adenocarcinoma: Plan: Follows Dr. Gloria at [facility]. (3) Hypertension: Plan: Continue medications as ordered including lisinopril, amlodipine (4) Hyponatremia: Plan: Subacute x 2 months. Mild. Follow BMP. Differential includes low intake vs SIADH. Plan Diet, fluids: HH. NSS 80/hr. ppx: per ortho code: DNR/DNI dispo: med surg Admission and Anticipated Discharge Date Admission Date: September 25, 2021 Supervising Physician Co-Signing Physician Notes I also saw the patient and confirmed hubbard portions the history and physical examination. I agree with the impression and plan as noted in the resident documentation. 86-year-old male was admitted through the emergency department yesterday after a ground-level fall in which he suffered a left hip fracture. Patient has a recent past medical history of esophageal adenocarcinoma for which she has been followed by the [facility]. This morning upon exam, his and daughter at bedside. He reports some discomfort but it is bearable. Exam 156/73, 91, 20, 37.1, 90% room air Heart regular rate and rhythm with occasional ectopy Respirations nonlabored, lungs clear throughout Lower extremities without edema. SCDs are in place Data Hemoglobin 10, platelet count 213 Sodium 133, potassium 4.5, BUN 33, creatinine 1.37 Chest x-ray shows no acute disease process EKG shows sinus rhythm with occasional PVC Impression and Plan Hip fracture, left femoral neck Esophageal adenocarcinoma, status post radiation therapy, chemotherapy with Taxol/carboplatin Orthopedics consult Subjective Patient was seen at bedside. 6/10 pain at left hip. No numbness/tingling/weakness. No fever, chills, cp, sob. Review of Systems Review of Systems: All systems reviewed & are unremarkable except as noted in HPI & below Physical Exam Physical Exam: General: Grossly A&O. NAD. Cooperative. HEENT: Atraumatic, normocephalic. EOMI Pulm: CTAB and laterally. -wheezes, -rales, -rhonchi. No respiratory distress. Cardiac: RRR, -mrg. No LE edema. Abdominal: Nontender, nondistended, soft. Msk: Moving feet and toes. Results & Data Results & Data ([facility]) Vital Signs (Past 12 Hours) Vital Signs Temp Pulse Resp BP Pulse Ox O2 Del Method 09/26/21 08:25 Room Air 09/26/21 08:26 36.7 C 71 18 134/70 100 Room Air Resident Activity Tracking Resident Involvement: Resident Care Provided Care Provided: Adult Hospital Medicine
[2021-09-26] MEDS ORDERED: SODIUM CHLORIDE 0.9% 250 ML IV PRN (13:53)
--- NOTE | 2021-09-26 14:10 | Anesthesiology Consultation ---
Date of Service September 26, 2021 Assessment & Plan Chart Review Chart Review: Acceptable Risk for Surgery and Patient NOT seen in Pre Admission Testing Consults Requested none ASA ASA4 Proposed Anesthesia Anesthesia Type: General Additional Comments: covid test neg. History Surgery Operation Date: 09/26/21 09:00 Proposed Procedures p Left Hip Hemiarthroplasty - Francesco Armendariz MD Height/Weight Height: 6 ft Weight: 68.2 kg Allergies Allergy/AdvReac Type Severity Reaction Status Date / Time No Known Allergies Allergy Verified 09/25/21 18:59 Medications Home Medications Medication Instructions Recorded Confirmed Last Taken wheat dextrin 3 gram/3.5 gram oral 1 pkt PO QPM 12/11/18 09/25/21 05/22/21 powder (Best Fiber) amlodipine 5 mg tablet 5 mg PO QPM #90 tabs 06/27/21 09/25/21 Unknown ondansetron HCl 8 mg tablet 8 mg PO Q8H PRN Nausea And Vomiting 07/24/21 09/25/21 Unknown prochlorperazine maleate 10 mg 10 mg PO Q8H PRN Nausea And 07/24/21 09/25/21 Unknown tablet (Compazine) Vomiting polyethylene glycol 3350 17 17 g PO DAILY PRN Constipation 08/07/21 09/25/21 Unknown gram/dose oral powder (Miralax) loratadine 10 mg tablet (Claritin) 10 mg PO DAILY 08/17/21 09/25/21 Unknown lisinopril 5 mg tablet 5 mg PO QPM #90 tabs 08/22/21 09/25/21 Unknown megestrol 400 mg/10 mL (40 mg/mL) 0 mg PO TID 09/25/21 09/25/21 Unknown oral suspension pantoprazole 40 mg tablet,delayed 40 mg PO BID 09/25/21 09/25/21 Unknown release (Protonix) trazodone 50 mg tablet 50 mg PO HS 09/25/21 09/25/21 Unknown Active Medications Generic Name Dose Route Start Last Admin Trade Name Freq PRN Reason Stop Dose Admin Amlodipine Besylate 5 mg 09/25/21 23:17 09/25/21 23:51 Amlodipine Besylate 5 Mg Tab PO 10/25/21 23:16 5 mg QPM GLORIA Administration Heparin Sodium (Porcine) 5,000 units 09/25/21 23:17 09/26/21 13:02 Heparin Sod 5,000 Unit/0.5 Ml Vial SQ 10/25/21 23:16 Not Given Q8 GLORIA Hydromorphone HCl 0.5 mg 09/25/21 23:17 09/25/21 23:45 Hydromorphone Inj 0.5 Mg/0.5 Ml Syr IV 10/09/21 23:16 0.5 mg Q6H PRN Administration Pain Pantoprazole Sodium 40 mg 09/27/21 09:00 09/26/21 10:13 Pantoprazole 40 Mg Tab PO 10/27/21 08:59 40 mg QAM GLORIA Administration Psyllium Hydrophilic Mucilloid 1 pkt 09/25/21 23:17 09/25/21 23:51 Psyllium Or Guar Gum Fiber Powder Packet PO 10/25/21 23:16 1 pkt QPM GLORIA Administration Past Medical History Medical History Altered bowel habits Atrial bigeminy BPPV (benign paroxysmal positional vertigo) Constipation CHRONIC PROBLEM Dysphagia Elevated PSA History of colon polyps History of nonmelanoma skin cancer Hypertension Ileus Loss of appetite Nocturia Premature supraventricular beats Right Achilles tendinitis Sinus bradycardia Varicose vein of leg LEFT - NO PROBLEMS WITH Weight loss Exercise / Class Metabolic Activity III < 4 Walking/Shop/Light housework Past Family History Family History Father , 93yo Diabetes Colonic polyp No cancer Mother , 87yo Alzheimer disease Daughter No problems noted. Other No family history of adverse response to anesthesia Denies family history of Ovarian cancer Prostate cancer Myocardial infarction Breast cancer Lung cancer Colorectal cancer Stroke Past Surgical History Surgical History H/O esophagogastroduodenoscopy History of cataract surgery bilt History of colonoscopy Hx of tonsillectomy S/P hernia repair Bilateral inguinal hernia repair S/P rotator cuff repair HX RIGHT S/P tooth extraction HX Status post Mohs surgery Past Anesthesia History No Hx of Anesthesia Complications and No Family Hx of Anesthesia Complications History of PONV No Hx of PONV and No Hx of Motion Sickness Social History Smoking Status: Never smoker Hx Alcohol Use: No Alcohol type: beer alcohol intake frequency: holidays/special occasions only Alcohol Intake Frequency Comment: pt has not drank alcohol in 6 months Hx Substance Use: No substance use type: does not use Physical Exam Vital Signs Last Vital Signs Temp 36.7 C 09/26/21 08:26 Pulse 71 09/26/21 08:26 Resp 18 09/26/21 08:26 BP 134/70 09/26/21 08:26 Pulse Ox 100 09/26/21 08:26 O2 Del Method 09/26/21 08:26 Testing Laboratory Results 09/26/21 06:14 09/26/21 06:14 PT 11.4 Seconds (9.0-12.0) 09/26/21 06:14 INR 1.1 (0.9-1.1) 09/26/21 06:14 Electrocardiogram Date: 09/25/21 Findings: + NSR @ (SR @ 78 w/SA w/occas. PVC's) Chest X-Ray Date: 09/25/21 Findings: + NAD Echocardiogram Date: 09/29/20 EF: 55% LV Function: normal RWMA: + none Other Findings: + LVH (mild) Valvular Disease: + no significant valvular disease mild TR Mild RV systolic pressure increase @ 30-40 torr
[2021-09-26] MEDS ORDERED: PROPOFOL IV EMULSION 10 MG/ML 20 ML VIAL IV ONE (15:17)
[2021-09-26] MEDS ORDERED: LIDOCAINE 2% MPF LOCAL 5 ML VIAL INFIL ONE (15:17)
--- NOTE | 2021-09-26 15:19 | Orthopedic Consultation ---
Date of Service September 26, 2021 Assessment & Plan (1) Femoral neck fracture: NPO. He was educated on this fracture and treatment options. He wants to have his hip fixed. Procedure was explained including risks, benefits, and alternatives to surgery. consent obtained. Dr. Armendariz will be doing the surgery today, specifically cemented bipolar hip hemiarthroplasty. History of Present Illness Reason for Consultation: . Requesting Physician: . Attending Physician: Levar Penn DO . 86 year old patient admitted yesterday with a left hip fracture. He states he was going to sit on his chair at home and fell, injuring his hip. He was brought to [facility] and xrays showed a displaced femoral neck fracture. Denies any hip pain prior to this fall. Allergies Allergy/AdvReac Type Severity Reaction Status Date / Time No Known Allergies Allergy Verified 09/25/21 18:59 Home Medications Medication Instructions Recorded Confirmed Type wheat dextrin 3 gram/3.5 gram oral 1 pkt PO QPM 12/11/18 09/25/21 History powder (Best Fiber) amlodipine 5 mg tablet 5 mg PO QPM #90 tabs 06/27/21 09/25/21 Rx ondansetron HCl 8 mg tablet 8 mg PO Q8H PRN Nausea And Vomiting 07/24/21 09/25/21 History prochlorperazine maleate 10 mg 10 mg PO Q8H PRN Nausea And 07/24/21 09/25/21 History tablet (Compazine) Vomiting polyethylene glycol 3350 17 17 g PO DAILY PRN Constipation 08/07/21 09/25/21 History gram/dose oral powder (Miralax) loratadine 10 mg tablet (Claritin) 10 mg PO DAILY 08/17/21 09/25/21 History lisinopril 5 mg tablet 5 mg PO QPM #90 tabs 08/22/21 09/25/21 Rx megestrol 400 mg/10 mL (40 mg/mL) 0 mg PO TID 09/25/21 09/25/21 History oral suspension pantoprazole 40 mg tablet,delayed 40 mg PO BID 09/25/21 09/25/21 History release (Protonix) trazodone 50 mg tablet 50 mg PO HS 09/25/21 09/25/21 History Past Med/Surg History Medical History Altered bowel habits Anemia Atrial bigeminy BPPV (benign paroxysmal positional vertigo) Constipation CHRONIC PROBLEM Dysphagia Elevated PSA 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) History of colon polyps History of nonmelanoma skin cancer Hypertension Ileus Loss of appetite Nocturia Premature supraventricular beats Right Achilles tendinitis Sinus bradycardia Varicose vein of leg LEFT - NO PROBLEMS WITH Weight loss Surgical History H/O esophagogastroduodenoscopy History of cataract surgery bilt History of colonoscopy Hx of tonsillectomy S/P hernia repair Bilateral inguinal hernia repair S/P rotator cuff repair HX RIGHT S/P tooth extraction HX Status post Mohs surgery Family History Father , 93yo Diabetes Colonic polyp No cancer Mother , 87yo Alzheimer disease Daughter No problems noted. Other No family history of adverse response to anesthesia Denies family history of Ovarian cancer Prostate cancer Myocardial infarction Breast cancer Lung cancer Colorectal cancer Stroke Social History Smoking Status: Never smoker Second Hand Exposure: No; Hx Alcohol Use: No Hx Substance Use: No Preferred Language: Trinidadian Communication Ability: Effective Visual Impairment: Limited Hearing Ability: Normal Urologist Md Required: No Beliefs That Will Affect Care: None marital status: Current Living Situation: Spouse and Other Current Living Situation Comment: lives in Independent living at [place] 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 How many Children do You have: 0 Other Information That Helps Us Care for You: No Feels Safe at Home: Yes Safety Concerns: Feels Safe At This Time Childhood Exposure to Second-Hand Smoke: No caffeine: Yes (coffee) during the past year weight has: decreased > 10 lbs Dental Care, Regularly: Yes Physical Activity Frequency: 1-2 Times per Week Physical Activity Frequency Comment: walking Seatbelt Use: always Sunscreen Use: Yes Do you think of yourself as: straight/heterosexual Assistive Devices: None Assistive Devices Comment: pt independent at baseline Review of Systems All systems reviewed & are unremarkable except as noted in HPI & below. Physical Exam . Alert and oriented. NAD Left leg: shortened and externally rotated. NVI. No motion of his hip today. He can dorsiflex and plantarflex. Results & Data Results & Data Laboratory Results . Diagnostic Findings . xrays show a displaced femoral neck fracture PG Care Time/CCT Total # of Minutes Spent Total Time Spent with Patient: Total time spent is greater than 50% in coordination of care (as documented) at patient's floor/unit and/or counseling patient: Coding Level of Care Code 21605 Inpt Consult Level 4 Diagnoses Femoral neck fracture S72.009A
[2021-09-26] MEDS ORDERED: EPINEPHrine INJ 1 MG/ML AMP ONE (15:20)
[2021-09-26] MEDS ORDERED: BUPIVACAINE 0.5 % 5 MG/1 ML MPF 30ML VIAL ONE (15:21)
[2021-09-26] MEDS ORDERED: fentaNYL citrate 100 MCG/2 ML VIAL IV PRN (15:25)
[2021-09-26] MEDS ORDERED: PHENYLEPHRINE 100MCG/ML 5ML SYR IV PRN (15:25)
[2021-09-26] MEDS ORDERED: ATROPINE SULFATE 0.1 MG/ML 10ML SYR IV PRN (15:25)
[2021-09-26] MEDS ORDERED: MEPERIDINE HCL 25 MG/ML CARP/VIAL IV PRN (15:25)
[2021-09-26] MEDS ORDERED: ePHEDrine sulfate 50 MG/ML AMP IV PRN (15:25)
[2021-09-26] MEDS ORDERED: LABETALOL HCL IV 5 MG/ML 20ML IV PRN (15:25)
[2021-09-26] MEDS ORDERED: HYDROmorphone INJ 1 MG/ML SYRINGE IV PRN (15:25)
[2021-09-26] MEDS ORDERED: ONDANSETRON INJ 2 MG/ML 2 ML VIAL IV PRN ×2 (15:25→19:10)
--- NOTE | 2021-09-26 15:31 | History & Physical Bridge Note ---
Date of Service September 26, 2021 History & Physical Bridge Note I have examined the patient, reviewed the History & Physical and in the interval since the performance of the History & Physical I have noted the following changes of clinical significance: no changes noted
[2021-09-26] MEDS ORDERED: BUPIVACAINE 0.5 % 5 MG/1 ML PF 10ML VIAL ONE (15:34)
[2021-09-26] MEDS ORDERED: fentaNYL citrate 100 MCG/2 ML VIAL ONE (15:36)
[2021-09-26] MEDS ORDERED: ceFAZolin 2,000 MG/15 ML IV PUSH IV ONE (16:28)
[2021-09-26] MEDS ORDERED: ePHEDrine sulfate 50 MG/ML AMP ONE ×2 (16:29→16:51)
[2021-09-26] MEDS ORDERED: ceFAZolin 2000MG 2,000 MG/15 ML SYR IV ONE (16:31)
--- NOTE | 2021-09-26 17:49 | Anesthesiology Progress Note ---
Date of Service September 26, 2021 Anesthesia Post Procedure Vital Signs Vital Signs: Temp Pulse Pulse Pulse Resp BP BP 09/26/21 17:40 96 H 18 106/67 09/26/21 17:30 99 H 18 125/69 09/26/21 17:22 36.5 C 108 H 14 116/72 09/26/21 14:28 37.1 C 91 H 20 156/73 H 09/26/21 08:25 09/26/21 08:26 36.7 C 71 18 134/70 09/25/21 23:15 37 C 79 17 132/71 09/25/21 22:00 76 17 09/25/21 22:00 121/60 09/25/21 21:30 82 21 09/25/21 21:30 158/83 H 09/25/21 21:00 82 14 09/25/21 21:00 144/70 H 09/25/21 20:30 74 17 09/25/21 20:30 124/59 L 09/25/21 20:00 80 15 09/25/21 20:00 119/101 H 09/25/21 19:30 79 19 09/25/21 19:30 141/71 H 09/25/21 19:01 85 20 09/25/21 19:01 147/72 H 09/25/21 19:00 82 18 09/25/21 18:30 77 20 09/25/21 18:30 137/65 09/25/21 18:00 75 18 09/25/21 18:00 121/61 Pulse Ox O2 Del Method O2 Flow Rate 09/26/21 17:40 99 Room Air 09/26/21 17:30 100 Oxymask 5 09/26/21 17:22 100 Oxymask 5 09/26/21 14:28 98 Room Air 09/26/21 08:25 Room Air 09/26/21 08:26 100 Room Air 09/25/21 23:15 100 Room Air 09/25/21 22:00 09/25/21 22:00 09/25/21 21:30 09/25/21 21:30 09/25/21 21:00 09/25/21 21:00 09/25/21 20:30 09/25/21 20:30 09/25/21 20:00 09/25/21 20:00 09/25/21 19:30 09/25/21 19:30 09/25/21 19:01 09/25/21 19:01 09/25/21 19:00 09/25/21 18:30 100 09/25/21 18:30 09/25/21 18:00 100 09/25/21 18:00 Pain Intensity Left Leg: Pain Intensity: 1 Transfer of Care Handoff Completed per policy Notes Mental Status: alert / awake / arousable Patient Amnestic to Procedure: Yes Nausea / Vomiting: adequately controlled Pain: adequately controlled Airway Patency, RR, SpO2: stable & adequate BP & HR: stable & adequate Hydration State: stable & adequate Neuraxial Anesthesia: was administered and sensory block is resolving Anesthetic Complications: no major complications apparent and Pt Satisfied with anesthetic care
--- NOTE | 2021-09-26 17:49 | XRay Report ---
XR hip LT min 2V CLINICAL HISTORY: Post-Operative implant position. Status post total hip replacement COMPARISON STUDY: 09/25/2021 TECHNIQUE: 2 left hip views FINDINGS: The patient is status post total hip replacement. The prosthetic components are in anatomic alignment with no acute abnormality seen. Skin avril are seen from the recent procedure. IMPRESSION: 1. Status post bipolar hip prosthesis. ACT 112: Negative or not required by law. Electronically signed by: Andrzej Plascencia M.D. 09/26/2021 5:47 PM
[2021-09-26] MEDS ORDERED: COUGH DROP (SUGAR FREE) LOZ 24 LOZ/1 BOX BUCCAL PRN (18:05)
[2021-09-26] MEDS: SODIUM CHLORIDE 0.9% 1000ML 1,000 ML IV SCH (18:35)
[2021-09-26] MEDS: MEGESTROL ACETATE SUSP 400 MG/10 ML UDC PO SCH (18:52)
[2021-09-26] MEDS ORDERED: HYDROmorphone INJ 0.5 MG/0.5 ML SYR IV PRN (18:56)
--- NOTE | 2021-09-26 19:07 | Operative Report ---
PG Post Operative Report Pre & Post Diagnosis Operation Date: 09/26/21 09:00 Pre-Op Diagnosis: Left displaced femoral neck/hip Fracture Post-Op Diagnosis: Left displaced femoral neck/hip Fracture I identified the patient and participated in the time-out.: Yes Procedure Operation Date: 09/26/21 09:00 Actual Procedures p Left Hip Hemiarthroplasty, Cemented(Left) - Francesco Armendariz MD Surgeon Francesco Armendariz MD Non Destructive Testing Technician The JASIEL Bustillos Estimated Blood Loss 100 Findings Consistent with Post-Op Diagnosis Specimens Left femoral head sent for pathology Anesthesia Type Spinal MAC Complications none Disposition Accompanied Patient To Recovery: No Indications Patient 86-year-old active independent ambulator who was sustained a fall yesterday. Fell on his left side. Acute onset of hip pain. He was brought to emergency room where x-rays were displaced femoral neck fracture. Patient decayed for surgical management. No pre-existing hip pain. Description of Procedure Operative implants consist of: 1 Chi size 12 LD/fracture hip fracture stem. 2. 11 mill meter at distal centralizer. 3. +7/28 mm articular ball with a 53 mm bipolar shell and liner. 4. Small cement restrictor. The patient was taken the operating, identified, placed on the operating table supine position protectors were properly padded. IV antibiotics arrived by anesthesia team. Spinal anesthetic was implemented. Patient then placed in the right lateral decubitus position. Axillary roll was placed. A Stulberg hip positioner was used for positioning. The left hip and leg were then scrubbed with Hibiclens, prepped with ChloraPrep and draped in usual sterile fashion. A posterior lateral approach of the left hip was then performed to a curvilinear incision centered over the greater trochanter. Sharp dissection Through subcutaneous tissue down below the IT band gluteal fascia the IT band gluteal fascia incised longitudinally in line with skin incision. The underlying greater bursa was excised. The piriformis and external right cables were tagged and taken off the posterior aspect hip joint capsule. Great care was taken throughout the procedure protect the sciatic nerve at all times. Posterior capsulotomy was then performed leaving a flap for later repair. Hip was internally rotated. Femoral neck osteotomy cut was made at the base of the fracture site about a centimeter above the lesser trochanter. Femoral neck and head were removed and and sent for pathology. The acetabular was sized to a size 53. Attention drawn the femur. The proximal femur was entered with a cookie cutter followed by canal finder and lateralizing reamer. I then broached beginning with a size 10 progressing up to 13. We did good to fit at 13. We trialed the hip and the +7 neck length as fit most appropriately. Leg lengths appeared equal. It was fully stable. We elect to place these implants. Nupathe all trial implants were removed. A distal cement restrictor was placed. A double batch Palacos G cement was mixed and injected in the femoral canal. A size 12 LD/fracture femoral stem was then placed with a 11 centralizer. All extraneous cement was removed. A +7/28 mm metal articular ball and a 53 mm bipolar shell and liner was placed. Hip was located once again found to be stable. Attention drawn toward closing. Wounds irrigated scope soft pulsatile lavage solution. We did inject locally with the 50 cc of half percent Marcaine with epinephrine. The posterior capsule was then repaired with #2 Tycron suture in a [id number] fashion. The external rotators were repaired to the posterior aspect hip abductors with #2 Tycron suture. The IT band gluteal fascia then closed #1 PDS suture running fashion. Subcutaneous tissue was then closed with 2 layers the deep layer #1 Vicryl suture subcutaneous tissue with 2-0 Dexon suture in a buried interrupted fashion the skin was closed skin avril. Leg was then cleaned and dried a sterile dressing was Xeroform, 4 fours, sterile ABD pad, foam tape was applied. Patient then transferred to the recovery room in stable condition. Patient tolerated procedure well no complications. Marcial Bustillos, my physician assistant to the vice president, was present for the entire procedure. His assistance was essential and required for appropriate patient positioning, prepping and draping, surgical exposure, performing the technical details of the operation, placement the implants, closure of the wound, and placement of the sterile bandage. I attest to the content of the Intraoperative Record and any orders documented therein. Any exceptions are noted below.
[2021-09-26] MEDS: PSYLLIUM or GUAR GUM FIBER POWDER PACKET PO SCH (20:23)
[2021-09-26] MEDS: PANTOprazole 40 MG TAB PO SCH (20:24)
[2021-09-26] MEDS: ASPIRIN 81 MG ECTAB PO SCH (20:24)
[2021-09-26] MEDS: amLODIPine BESYLATE 5 MG TAB PO SCH (20:25)
[2021-09-26] MEDS: ACETAMINOPHEN 500 MG TAB PO SCH (20:28)
[2021-09-26] MEDS ORDERED: traZODone HCL 50 MG TAB PO SCH (21:00)
[2021-09-26] MEDS ORDERED: lisinopril 5 MG TAB PO SCH (21:00)
[2021-09-26] MEDS: traZODone HCL 50 MG TAB PO SCH (21:46)
[2021-09-27] MEDS: ACETAMINOPHEN 500 MG TAB PO SCH ×3 (03:01→18:19)
[2021-09-27] MEDS: oxyCODONE HCL IR 5 MG TAB (IMMEDIATE RELEASE) PO PRN (03:02)
[2021-09-27 06:51] LABS: Basophils # (auto) 0.01 K/uL (0-0.2); Basophils % (auto) 0.1 %; Eosinophils # (auto) 0.01 K/uL (0-0.50); Eosinophils % (auto) 0.1 %; Hematocrit (blood only) 25.5 % (40.1-51.0); Hemoglobin 8.6 g/dl (14.0-18.0); Immature Granulocytes # (auto) 0.05 K/uL (0.00-0.02); Immature Granulocytes % (auto) 0.5 %; Lymphocytes % (auto) 9.5 %; Mean Corpuscular Hemoglobin 33.9 pg (25.0-34.0); Mean Corpuscular Hgb Conc 33.7 g/dL (32.0-36.0); Mean Corpuscular Volume 100.4 fL (80.0-100.0); Mean Platelet Volume 9.2 fL (9.4-12.4); Monocytes # (auto) 0.88 K/uL (0.24-0.82); Monocytes % (auto) 8.4 %; Neutrophils # (auto) 8.54 K/uL (1.4-6.5); Neutrophils % (auto) 81.4 %; Platelet Count 173 K/uL (130-400); RDW Coefficient of Variation 15.3 % (11.5-14.5); RDW Standard Deviation 56.6 fL (36.4-46.3); Red Blood Count 2.54 M/uL (4.63-6.08); White Blood Count 10.49 K/ul (4.8-10.8)
[2021-09-27 07:13] LABS: BUN Creatinine Ratio 21.5 (10-20); Calcium 8.9 mg/dl (8.5-10.1); Creatinine Clr Calc Pharmacy 35.6 ml/min; Est GFR (African American) 49.2 ml/min; Est GFR (Non-African American) 42.5 ml/min; Potassium 4.5 mmol/L (3.5-5.1)
--- NOTE | 2021-09-27 07:37 | Hospitalist Progress Note ---
Date of Service September 27, 2021 Assessment & Plan (1) Status post hip hemiarthroplasty: Plan: 86 year old male w/ esophageal adenocarcinoma, HTN, BPPV, and elevated PSA, and parox afib who presents s/p fall resulting in left femoral neck fracture. He is s/p hemiarthroplasty, POD1. Pain control: Srinivasa tylenol 1000mg PO TID. Oxycodone 5mg q6h prn for 7-10 pain (0.5 mg IV Dilaudid q6 prn if not tolerating PO). PT recommends SNF OT recommends consider rehab Continue discussion w/ patient and family regarding disposition plans (2) Anemia: Plan: - Hb w/ recent baseline in past 2 months of ~10. 8.6 after hemiarthroplasty. Borderline macrocytic. Follow cbc. (3) Esophageal adenocarcinoma: Plan: Follows Dr. Gloria at cancer [facility]. (4) Hypertension: Plan: Continue medications as ordered including lisinopril, amlodipine (5) Hyponatremia: Plan: Subacute x 2 months. Mild. Follow BMP. Differential includes low intake vs SIADH. Plan Diet, fluids: HH. NSS 80/hr to stop this evening. ppx: per ortho, baby ASA BID code: DNR/DNI dispo: med surg Admission and Anticipated Discharge Date Admission Date: September 25, 2021 Supervising Physician Co-Signing Physician Notes I also saw the patient and confirmed hubbard portions the history and physical examination. I agree with the impression and plan as noted in the resident documentation. Postop day #1. He is working with physical therapy this morning. Pain control is acceptable. Exam 114/69, 92, 16, 37 C, 100% on room air Heart regular rate and rhythm Respirations nonlabored, lungs clear throughout Lower extremities without edema. Data Hemoglobin 8.6, platelet count 173 Sodium 133, potassium 4.5, BUN 32, creatinine 1.49 Impression and Plan Hip fracture, left femoral neck, postop day #1 Esophageal adenocarcinoma, status post radiation therapy, chemotherapy with Taxol/carboplatin PT/OT -notes reviewed, recommend SNF Continue current pain control medications Aspirin 81 mg twice daily for 6 weeks per orthopedics Subjective Patient was seen at bedside this morning. His pain is 3/10 severity at left hip, improved from yesterday. He denies fever, chills, chest pain, or SOB. Review of Systems Review of Systems: All systems reviewed & are unremarkable except as noted in HPI & below Physical Exam Physical Exam: General: Grossly A&O. NAD. Cooperative. HEENT: Atraumatic, normocephalic. EOMI Pulm: Mildly soft breath sounds. No respiratory distress. Cardiac: RRR, -mrg. Radial pulses intact and symmetrical. Msk: Moving toes and feet. Hip exam deferred in postop setting. Results & Data Results & Data ([facility]) Vital Signs (Past 12 Hours) Vital Signs Temp Pulse Pulse Pulse Resp BP BP 09/27/21 06:32 36.7 C 90 16 97/60 L 09/27/21 03:00 36.7 C 100 H 16 106/64 09/26/21 22:29 36.6 C 108 H 18 120/73 09/26/21 19:57 36.5 C 107 H 20 122/74 Pulse Ox O2 Del Method 09/27/21 06:32 99 Room Air 09/27/21 03:00 98 Room Air 09/26/21 22:29 100 Room Air 09/26/21 19:57 100 Room Air Resident Activity Tracking Resident Involvement: Resident Care Provided Care Provided: Adult Hospital Medicine
[2021-09-27] MEDS: SODIUM CHLORIDE 0.9% 1000ML 1,000 ML IV SCH (08:14)
[2021-09-27] MEDS: ASPIRIN 81 MG ECTAB PO SCH ×2 (08:25→20:45)
[2021-09-27] MEDS: PANTOprazole 40 MG TAB PO SCH ×2 (08:25→20:45)
[2021-09-27] MEDS ORDERED: SUCRALFATE 1 GM/10 ML UDC PO SCH (09:00)
[2021-09-27] MEDS ORDERED: PANTOprazole 40 MG TAB PO SCH (09:00)
[2021-09-27] MEDS: SUCRALFATE 1 GM/10 ML UDC PO SCH ×3 (09:08→16:54)
[2021-09-27] MEDS: MEGESTROL ACETATE SUSP 400 MG/10 ML UDC PO SCH ×3 (09:08→18:19)
--- NOTE | 2021-09-27 11:20 | Progress Notes ---
DATE OF SERVICE: 09/27/2021. SUBJECTIVE: An 86-year-old gentleman, postoperative day 1 from a left cemented bipolar hip arthropl asty for fracture. He is doing pretty well. Denies any pain this morning. OBJECTIVE: VITAL SIGNS: Temperature 36.7. Vital signs are stable. PHYSICAL EXAMINATION: GENERAL: Shows a pleasant, elderly male. He is lying in bed, looks quite comfortable. EXTREMITIES: Examination of left hip reveals leg lengths to be equal. Dressing is clean, dry and in tact. Hip is located. He is neurologically intact. LABORATORY DATA: Hemoglobin 8.6. Hematocrit 25.5. Electrolytes are stable. Creatinine is just sli ghtly elevated, but he has got some slightly elevated creatinine. ASSESSMENT: An 86-year-old gentleman postoperative day 1 from a left cemented bipolar hip arthroplas ty for fracture, doing well. Orthopedically, he is stable. Creatinine is a little bit elevated, but that is about his baseline. He is anemic, but without symptoms. PLAN: 1. DVT prophylaxis includes thigh-high TEDs, SCDs and we would recommend a baby aspirin twice a day for 6 weeks. 2. PT/OT, weightbear as tolerated. Left total hip protocol. Does need to obey hip precautions. 3. Pain control, doing okay with current pain regimen. 4. Medical management as per the medicine service. 5. Disposition: He is orthopedically okay for discharge any time medically stable. I need to see h im back in 2-3 weeks out from surgery date. Any orthopedic questions can be directed to me at [phone] . Job ID: [id number]
[2021-09-27] MEDS: amLODIPine BESYLATE 5 MG TAB PO SCH (20:45)
[2021-09-27] MEDS: traZODone HCL 50 MG TAB PO SCH (20:45)
[2021-09-27] MEDS: PSYLLIUM or GUAR GUM FIBER POWDER PACKET PO SCH (20:48)
[2021-09-28] MEDS: ACETAMINOPHEN 500 MG TAB PO SCH ×3 (03:21→18:20)
[2021-09-28] MEDS: POLYETHYLENE (MIRALAX) 17 GM PACK PO SCH ×3 (05:58→18:20)
[2021-09-28 06:22] LABS: Hematocrit (blood only) 22.6 % (40.1-51.0); Hemoglobin 7.6 g/dl (14.0-18.0); Mean Corpuscular Hemoglobin 33.6 pg (25.0-34.0); Mean Corpuscular Hgb Conc 33.6 g/dL (32.0-36.0); Mean Platelet Volume 9.3 fL (9.4-12.4); Platelet Count 147 K/uL (130-400); RDW Coefficient of Variation 14.9 % (11.5-14.5); RDW Standard Deviation 54.9 fL (36.4-46.3); Red Blood Count 2.26 M/uL (4.63-6.08); White Blood Count 9.85 K/ul (4.8-10.8)
[2021-09-28 06:49] LABS: BUN Creatinine Ratio 23.6 (10-20); Calcium 8.9 mg/dl (8.5-10.1); Creatinine Clr Calc Pharmacy 35.8 ml/min; Est GFR (African American) 49.6 ml/min; Est GFR (Non-African American) 42.8 ml/min
--- NOTE | 2021-09-28 07:53 | Progress Notes ---
DATE OF SERVICE: 09/28/2021. SUBJECTIVE: An 86-year-old gentleman, postoperative day 2 from a left cemented bipolar hip arthropla sty for fracture. He is doing well. He states yesterday was rough pain [place]. He denies any pain th is morning. OBJECTIVE: VITAL SIGNS: Temperature 36.3. Vital signs are stable. PHYSICAL EXAMINATION: GENERAL: Shows a pleasant, somewhat grumpy elderly male, who is lying in bed. Just appears a bit ag itated. EXTREMITIES: Examination of the left hip reveals the leg lengths to be equal. Dressing is clean, dr y and intact. He can dorsiflex and plantarflex his foot appropriately. LABORATORY DATA: Hemoglobin 7.6. Hematocrit 22.6. Electrolytes are fairly stable. Sodium is a lit tle bit down. Creatinine stable. ASSESSMENT: An 86-year-old gentleman postoperative day 2 from a left cemented bipolar hip arthroplas ty for fracture. Orthopedically, he is doing okay. Seems a little bit depressed. His hemoglobin is low and might benefit from a single unit of blood. PLAN: 1. DVT prophylaxis includes thigh-high TEDs, SCDs and we would recommend aspirin twice a day for 6 w eeks. 2. PT, OT, weightbear as tolerated. Left total hip protocol. 3. Pain control, doing okay with current pain regimen. He can be best to stick to Tylenol as much a s possible, use tramadol supplement. Limit narcotics to avoid confusion. 4. Medical management as per the medicine service. 5. Hemoglobin is fairly low. In this elderly male, a single unit of blood may benefit him from the functional standpoint. We will leave that up to the medicine service. Otherwise, he is orthopedical ly okay for discharge any time medically stable. I need to see him back in 2-3 weeks out from surger y date. Any orthopedic questions can be directed to me at [phone]. Job ID: [id number]
[2021-09-28] MEDS: ASPIRIN 81 MG ECTAB PO SCH ×2 (07:56→20:24)
[2021-09-28] MEDS: MEGESTROL ACETATE SUSP 400 MG/10 ML UDC PO SCH ×3 (07:56→18:20)
[2021-09-28] MEDS: PANTOprazole 40 MG TAB PO SCH ×2 (07:56→20:23)
[2021-09-28] MEDS: SUCRALFATE 1 GM/10 ML UDC PO SCH ×3 (07:59→16:51)
[2021-09-28] MEDS: oxyCODONE HCL IR 5 MG TAB (IMMEDIATE RELEASE) PO PRN (09:04)
[2021-09-28] MEDS ORDERED: SODIUM CHLORIDE 0.9% 250 ML IV PRN (11:21)
--- NOTE | 2021-09-28 18:10 | Hospitalist Progress Note ---
Date of Service September 28, 2021 Assessment & Plan (1) Status post hip hemiarthroplasty: Plan: 86 year old male w/ esophageal adenocarcinoma, HTN, BPPV, and elevated PSA, and parox afib who presents s/p fall resulting in left femoral neck fracture. He is s/p hemiarthroplasty, POD2 Pain control: Srinivasa tylenol 1000mg PO TID. Oxycodone 5mg q6h prn for 7-10 pain (0.5 mg IV Dilaudid q6 prn if not tolerating PO). PT recommends SNF OT recommends consider rehab Tentative dispo plan, potentially 09/29: [facility] for SNF level care (2) Anemia: Plan: - Hb w/ recent baseline in past 2 months of ~10. 8.6 after hemiarthroplasty. Borderline macrocytic. Hb 7.6 on 09/28. transfused 1u. repeat cbc ordered (3) Esophageal adenocarcinoma: Plan: Follows Dr. Gloria at cancer [facility]. Per Dr. Garcia 09/28, may use baby ASA BID for postop dvt ppx. (4) Hypertension: Plan: Continue medications as ordered including lisinopril, amlodipine (5) Hyponatremia: Plan: Subacute x 2 months. Mild. Follow BMP. Differential includes low intake vs SIADH. Slight downtrending. (6) Low vitamin D level: Plan: 29.7 on 09/27. Will replete w/ 5000IU D3 qpm temporarily Plan Diet, fluids: HH. No IV fluids. ppx: per ortho, baby ASA BID code: DNR/DNI dispo: med surg Admission and Anticipated Discharge Date Admission Date: September 25, 2021 Supervising Physician Co-Signing Physician Notes I also saw the patient and confirmed hubbard portions the history and physical examination. He is looking forward to PT today - was a little tired yesterday AM, especially after a late-day surgery the previous day. Exam 113/70, 72, 16. 36.7, 98 percent RA Heart regular rate and rhythm Respirations nonlabored, lungs clear throughout Lower extremities without edema. Data Hemoglobin 7.6, platelet count 147 Sodium 130, potassium 5, BUN 24, creatinine 1.48 Impression and Plan Hip fracture, left femoral neck, postop day #2 Esophageal adenocarcinoma, status post radiation therapy, chemotherapy with Taxol/carboplatin Anemia, post operative blood loss on chronic anemia Since patient lives at the [facility], SNF bed at the [facility], with bed pending tomorrow Aspirin 81 mg twice daily for 6 weeks for DVT prophylaxis, discussed with patient risks:benefits given his esopgeal CA Emphasized importance of PPI and Carafate, early recognition of any symptoms Transfuse one unit today Additional as noted in residnet note Subjective Patient denies L hip pain at rest. He has pain w/ movement. He denies fever, chills, chest pain, or SOB. He is agreeable to participating in therapy; he states that yesterday's poor participation was attributed to the session being too soon (morning after evening surgery) as his hip pain was quite uncomfortable. Review of Systems Review of Systems: All systems reviewed & are unremarkable except as noted in HPI & below Physical Exam Physical Exam: General: Grossly A&O. NAD. Cooperative. Conversational. HEENT: Atraumatic, normocephalic. EOMI Pulm: CTAB. No crackles, wheezes, rhonchi. No respiratory distress. Cardiac: RRR, -mrg. Msk: Hip exam deferred in postop setting. Results & Data Results & Data ([facility]) Vital Signs (Past 12 Hours) Vital Signs Temp Pulse Pulse Resp BP BP BP 09/28/21 15:15 36.7 C 72 16 113/70 09/28/21 15:47 36.7 C 72 16 113/70 09/28/21 14:06 36.5 C 80 18 99/57 L 09/28/21 13:15 36.3 C L 83 18 115/66 09/28/21 12:45 36.8 C 85 18 116/64 09/28/21 12:21 37 C 93 H 18 106/64 09/28/21 12:00 36.8 C 93 H 18 118/72 09/28/21 08:30 36.8 C 81 16 102/57 L Pulse Ox O2 Del Method 09/28/21 15:15 98 09/28/21 15:47 98 Room Air 09/28/21 14:06 99 09/28/21 13:15 100 09/28/21 12:45 97 09/28/21 12:21 99 09/28/21 12:00 99 09/28/21 08:30 98 Room Air Resident Activity Tracking Resident Involvement: Resident Care Provided Care Provided: Adult Hospital Medicine
[2021-09-28 19:04] LABS: Hematocrit (blood only) 26.4 % (40.1-51.0); Mean Corpuscular Hemoglobin 32.1 pg (25.0-34.0); Mean Corpuscular Hgb Conc 34.1 g/dL (32.0-36.0); Mean Corpuscular Volume 94.3 fL (80.0-100.0); Mean Platelet Volume 8.9 fL (9.4-12.4); Platelet Count 159 K/uL (130-400); RDW Coefficient of Variation 17.4 % (11.5-14.5); RDW Standard Deviation 60.7 fL (36.4-46.3); White Blood Count 11.27 K/ul (4.8-10.8)
[2021-09-28] MEDS: amLODIPine BESYLATE 5 MG TAB PO SCH (20:23)
[2021-09-28] MEDS: traZODone HCL 50 MG TAB PO SCH (20:24)
[2021-09-28] MEDS: PSYLLIUM or GUAR GUM FIBER POWDER PACKET PO SCH (20:25)
[2021-09-28] MEDS ORDERED: CHOLECALCIFEROL 5,000 UNITS 125 MCG TAB PO SCH (21:00)
[2021-09-29] MEDS: POLYETHYLENE (MIRALAX) 17 GM PACK PO SCH ×3 (00:32→11:51)
[2021-09-29] MEDS: ACETAMINOPHEN 500 MG TAB PO SCH ×2 (03:25→10:12)
[2021-09-29 07:20] LABS: Hematocrit (blood only) 25.9 % (40.1-51.0); Hemoglobin 8.7 g/dl (14.0-18.0); Mean Corpuscular Hemoglobin 31.6 pg (25.0-34.0); Mean Corpuscular Hgb Conc 33.6 g/dL (32.0-36.0); Mean Corpuscular Volume 94.2 fL (80.0-100.0); Mean Platelet Volume 9.2 fL (9.4-12.4); Platelet Count 159 K/uL (130-400); RDW Coefficient of Variation 17.6 % (11.5-14.5); RDW Standard Deviation 60.2 fL (36.4-46.3); Red Blood Count 2.75 M/uL (4.63-6.08); White Blood Count 9.75 K/ul (4.8-10.8)
[2021-09-29] MEDS: SUCRALFATE 1 GM/10 ML UDC PO SCH ×2 (07:39→11:49)
[2021-09-29] MEDS: PANTOprazole 40 MG TAB PO SCH (07:42)
[2021-09-29 07:47] VITALS: BP 108/66; TEMP 98.2; O2SAT 100
[2021-09-29 07:49] LABS: BUN Creatinine Ratio 24.6 (10-20); Calcium 9.3 mg/dl (8.5-10.1); Creatinine Clr Calc Pharmacy 37.4 ml/min; Est GFR (African American) 52.2 ml/min; Potassium 4.3 mmol/L (3.5-5.1)
--- NOTE | 2021-09-29 08:49 | Progress Notes ---
DATE OF SERVICE: 09/29/2021. SUBJECTIVE: An 86-year-old gentleman now postop day 3 from a left cemented bipolar hip arthroplasty for fracture. He seems to be doing better this morning. Pain is controlled. Just more optimistic. OBJECTIVE: VITAL SIGNS: Temperature 36.6. Vital signs are stable. PHYSICAL EXAMINATION: GENERAL: Shows a pleasant, elderly male. Lying in bed, looks pretty comfortable. EXTREMITIES: Examination of the left hip and leg reveals the dressing to be clean, dry and intact. His leg lengths appear equal. Hip is located. He is neurologically intact. LABORATORY DATA: Labs are pending today. ASSESSMENT: An 86-year-old gentleman, postoperative day #3 from a left bipolar hip arthroplasty for fracture, doing well. Pain seems to be controlled. PLAN: 1. DVT prophylaxis includes thigh-high TEDs, SCDs and we would recommend a baby aspirin twice a day for 6 weeks. 2. PT, OT, weightbear as tolerated. Left total hip protocol. 3. Pain control, doing okay with current pain regimen. 4. Medical management as per the medicine service. 5. Disposition: He is orthopedically okay for discharge any time. I need to see him back in 2-3 we eks out from surgery date. Any orthopedic questions can be directed to me at [phone]. Job ID: [id number]
[2021-09-29] MEDS: MEGESTROL ACETATE SUSP 400 MG/10 ML UDC PO SCH ×2 (10:11→13:14)
[2021-09-29] MEDS: ASPIRIN 81 MG ECTAB PO SCH (10:12)
[2021-09-29 11:25] VITALS: PULSE 107
--- NOTE | 2021-09-29 17:26 | Discharge Summary ---
Date of Service September 29, 2021 Admission HPI Per Admitting Provider This is an 86-year-old male with past medical history of a distal esophageal adenocarcinoma being treated by [facility] that presents status post fall. Patient is accompanied by his and a good historian. Patient is live in independent living at the [facility]. Patient states that he tends to get orthostatic when he stands and typically will change positions slowly. However, earlier today he stood up quickly. He does not think he passed out but he does not have any recollection outside of being on the floor. He says it happened very quickly. He landed on his left side had significant pain in his hip and pelvis after this. On evaluation emergency room, patient was found to have a displaced left femoral neck fracture. Patient is now being admitted for further treatment of this. Patient tells me that he does not have significant pain unless he moves. He denies any other systemic symptoms such as chest pain, shortness of breath, palpitations, fever or chills. Of note, patient tells me that he had an appointment for surgical evaluation and a PET scan at [facility] on 09/28 and was told that he will likely need to reschedule these appointments. Admission Exam Per Admitting Provider Constitutional: cooperative; no acute distress Neck: trachea midline, no thyromegaly Respiratory: normal respiratory effort Auscultation: lungs clear to auscultation bilaterally; no crackles, no rales, no rhonchi and no wheezes B Cardiovascular: Rate/Rhythm: regular rate and regular rhythm Heart Sounds: normal S1 and normal S2 Gastrointestinal (Abdomen): Inspection/Auscultation: abdomen normal to inspection Percussion/Palpation: abdomen soft; abdomen nontender, no guarding, abdomen not rigid and no hepatosplenomegaly Musculoskeletal: Left extremity externally rotated, did not examine further secondary to patient discomfort Skin: no rashes, warm and dry Principal Diagnosis Left hip fracture Discharge Exam General: Well-appearing, alert, interactive, and in no acute distress. HEENT: Normocephalic, atraumatic. EOM intact. Good conjugate gaze. Nares patent. Moist mucosal membranes. Neck: Supple. No lymphadenopathy. Normal ROM. CV: Regular rate and rhythm. Normal S1 and S2. No murmurs gallops or rubs. Respiratory: Normal respiratory effort. Mild bibasilar (atelectatic) crackles. No rhonchi, or wheezes. Abdomen: Soft, nondistended abdomen. No bruits heard on auscultation. No tenderness to deep palpation. Extremities: Capillary refill <2 sec. 2+ dp equal bilaterally. No pedal edema. Neuro: Alert and oriented x3. Skin: Clean, dry, and intact. No rashes, bruises, or erythema. Discharge Data Allergies Allergy/AdvReac Type Severity Reaction Status Date / Time No Known Allergies Allergy Verified 09/25/21 18:59 Consultations 09/25/21 17:17 ED Decision to Admit Stat 09/25/21 18:07 Consult Orthopedic Surgery Routine Procedures Performed Operation Date: 09/26/21 09:00 Actual Procedures p Left Hip Hemiarthroplasty, Cemented(Left) - Francesco Armendariz MD Hospital Course (1) Status post hip hemiarthroplasty: 86 year old male w/ esophageal adenocarcinoma, HTN, BPPV, and elevated PSA, and parox afib who presents s/p fall resulting in left femoral neck fracture. He is s/p hemiarthroplasty, POD2 Pain control: Srinivasa tylenol 1000mg PO TID. Oxycodone 5mg q6h prn for 7-10 pain (0.5 mg IV Dilaudid q6 prn if not tolerating PO). PT recommends SNF OT recommends consider rehab Tentative dispo plan, potentially 09/29: [facility] for SNF level care (2) Anemia: - Hb w/ recent baseline in past 2 months of ~10. 8.6 after hemiarthroplasty. Borderline macrocytic. Hb 7.6 on 09/28. transfused 1u. repeat cbc ordered (3) Esophageal adenocarcinoma: [facility] Per Dr. Garcia 09/28, may use baby ASA BID for postop dvt ppx. (4) Hypertension: Continue medications as ordered including lisinopril, amlodipine (5) Hyponatremia: Subacute x 2 months. Mild. Follow BMP. Differential includes low intake vs SIADH. Slight downtrending. (6) Low vitamin D level: 29.7 on 09/27. Will replete w/ 5000IU D3 qpm temporarily Plan Diet, fluids: HH. No IV fluids. ppx: per ortho, baby ASA BID code: DNR/DNI dispo: med surg Total Time Total Time Spent Total Time Spent (In Minutes): 10 Discharge Plan Discharge Items Patient Disposition: Transfer Half-Way Fac Reason For Visit: L HIP FX Discharge Diagnosis: Left Hip Replacement for fracture Activity: Per Instructions section Activity Comment: Follow/Obey hip precautions at all times. Weightbearing: Full weightbearing Weightbearing Comment: Weightbear as tolerated obeying hip precautions at all times. Non-emergency contact: Primary Care Provider and Surgeon Call non-emergency contact if: you have any medication questions, your pain is not controlled and your pain is worsening Follow-up/Referrals: Francesco Armendariz MD [Physician] - (Orthopedic follow-up 2-3 weeks from surgery date.) Adalberto Salcido DO [Primary Care Provider] - Diet: Regular Addtl Attending Provider Instructions: ACTIVITY RECOMMENDATIONS: Physical Therapy: * Aggressive physical therapy is not usually needed. You will learn to take care of yourself safely and walk. * Follow the "Hip Precautions Instructions." * In some cases, the group social worker at the hospital will arrange to have a therapist come to your house for the first couple of weeks to help you learn these skills. * You need to practice on your own or with the help of a family member as needed. * When you learn these skills, most of the therapy can be done on your own. Home Exercise: * You were shown a series of exercises in the hospital. Do these exercises three to four times each day including the exercises you were shown in physical therapy. Walking: * Get up and walk several times each day. For the first four weeks, try not to stand or walk for more than one hour at a time. If you do stand or walk for more than one hour, you will not hurt anything, but your leg will likely swell. * As you feel comfortable, you may change from the walker or crutches to a cane and then to independent walking. MEDICATIONS: "VERY IMPORTANT TO READ AND REVIEW" Pain: * The immediate post-operative period after hip replacement surgery is often quite painful. * You are given a prescription for pain medicine. You should take it, as directed, when you need it, especially before physical therapy and before going to bed. Pain that interferes with sleep is very common and can last several months. * You will likely need pain medicine for the first two to four weeks. It will not stop all of the pain. The pain will lessen and as you feel better, you may change to milder pain medicine such as Tylenol. * The most common side effects of pain medicine are nausea and constipation, so don't take more than you need. SPECIAL CARE INSTRUCTIONS: TEDs/Elastic Stockings: * The white elastic stockings help limit swelling and prevent blood clots from forming in your legs. The more you wear them, the more they work. * Wear them for six weeks. Incision Site Care: * Remove dressing postoperative day 2 and then shower. Keep direct shower pressure off the incision site. * After showering, cover avril with dry gauze and change daily or more frequently if the dressing is getting saturated with drainage. * May completely stop using bandage if wound is dry and no drainage * Dragoon are removed between 2 and 3 weeks post-op. If your follow-up appointment is made before 2 weeks, please have your appointment re- scheduled. It is too early to remove the avril. Prevention of Infection: * Take antibiotics one hour before any dental cleaning, dental work, urological procedure, gastrointestinal procedure or any invasive surgery in order to prevent your new joint from getting infected. * You may get the antibiotics from the doctor performing the procedure or you may call our office at before and we will call in a prescription to the pharmacy of your choice. Things to Watch For: * Drainage from the incision site that occurs more than one week after your surgery. * Severely increased leg pain or swelling. * Increased redness at the incision site. * Fever above 102 degrees Fahrenheit. * Unusual chest pain or shortness of breath. * Unusual pain or burning with urination. Call [facility] at with any of the above problems or if you have any questions about your medicines or recovery. FOLLOW UP VISIT: Make an appointment to see your doctor for approximately two weeks after surgery for a progress check and staple removal by calling the office at . Pending Studies at Discharge: No Stand-Alone Forms: [facility] Skilled Items Patient informed of condition?: Yes DNR: Yes Discharge Level of Care: Skilled Communicable Disease: No Discharge Prognosis: Improving Lines: None Urinary Catheter: No Medications and DC Order Prescriptions: New acetaminophen [Tylenol Extra Strength] 500 mg Tablet 1,000 mg PO Q8H 30 Days Qty: 180 0RF oxycodone 5 mg tablet 5 mg PO Q6H PRN (Reason: pain) Qty: 14 0RF Continued ondansetron HCl 8 mg tablet 8 mg PO Q8H PRN (Reason: Nausea And Vomiting) prochlorperazine maleate [Compazine] 10 mg tablet 10 mg PO Q8H PRN (Reason: Nausea And Vomiting) polyethylene glycol 3350 [Miralax] 17 gram/dose powder 17 g PO DAILY PRN (Reason: Constipation) loratadine [Claritin] 10 mg tablet 10 mg PO DAILY amlodipine 5 mg tablet 5 mg PO QPM Qty: 90 1RF lisinopril 5 mg tablet 5 mg PO QPM Qty: 90 3RF Best Fiber 3 gram/3.5 gram powder 1 pkt PO QPM pantoprazole [Protonix] 40 mg tablet,delayed release (DR/EC) 40 mg PO BID trazodone 50 mg tablet 50 mg PO HS megestrol 400 mg/10 mL (40 mg/mL) suspension 0 mg PO TID Rx Instructions: use as directed Discharge Orders: Discharge Order (Routine); Ordered 09/29/21 Ordered By: Lin Lares/Other Patient Handouts: Hip Precautions, Hip Safety: Sleeping Positions, Hip Replace Sitting Safely Admission Data Admit Date/Time: 09/25/21 18:07 Attending Provider: Amy Paul Admit Provider: Yahir Barfield Primary Care Provider: Adalberto Salcido Other Providers: Yahir Barfield ; Francesco Armendariz Other Interventions: Discharge Summary Assessment (RN) Last Done: 09/29/21 11:23 Supervising Physician Co-Signing Physician Notes Patient seen and examined with PGY-2 Dr. Perry. Agree with history, exam fin dings, assessment and plan of care as outlined. In brief, Mr. Ortiz is 86 year old male with history of esophageal adenocarcinoma, HTN, BPPV, elevated PSA and pAF admitted following a fall resulting in a left femoral neck fracture. Feels well. Has been up and working with PT. Had a bowel movement. VS and nursing notes reviewed. Well appearing elderly male. Oriented x 3. Surgical site dressing is clean, dry and intact. Labs and imaging reviewed 1. Femoral neck fracture. s/p hemiarthroplasty. Pain management with Tylenol, oxycodone. PT/OT. 2. Anemia. Transfused 1 u post-operatively on 09/28 with appropriate hemoglobin response. 3. Esophageal adenocarcinoma. Follows with Dr. Gloria. 4. HTN. Continue home lisinopril and amlodipine. 5. Hyponatremia. Subacute and stable. 6. Vitamin D insufficiency. Level 29. Started 5000 IU vitamin D. Dispo: discharge to the [facility] today. post-operative DVT prophylaxis ASA 81mg BID x 6 weeks. I personally spent 25 minutes discharge planning for this patient. Resident Activity Tracking Resident Involvement: Resident Care Provided Care Provided: Adult Hospital Medicine
== END 2021-09-29 13:36 | DRG 522 ==
LOC: ED 15:08 → SUATTDRO 18:07 → 3E 18:07
DX: Y99.8 Other external cause status; S72.002A Fracture of unspecified part of neck of left femur, initial encounter for closed fracture; E87.1 Hypo-osmolality and hyponatremia; E55.9 Vitamin D deficiency, unspecified; I10 Essential (primary) hypertension; E22.2 Syndrome of inappropriate secretion of antidiuretic hormone; D62 Acute posthemorrhagic anemia; I48.0 Paroxysmal atrial fibrillation; D53.9 Nutritional anemia, unspecified; W18.39XA Other fall on same level, initial encounter; Z66 Do not resuscitate; Z79.899 Other long term (current) drug therapy; Z20.822 Contact with and (suspected) exposure to COVID-19; C15.9 Malignant neoplasm of esophagus, unspecified

== ENCOUNTER 2021-12-21 17:10 | Inpatient (IN) ==
[2021-12-21] MEDS ORDERED: Heparin IV Adult Wt-Based Standard *NO* Bolus Protocol IV ONE ×2 (17:54→22:15)
--- NOTE | 2021-12-21 18:00 | History & Physical Report ---
Date of Service December 21, 2021 Assessment & Plan (1) Pulmonary embolism: Plan: Attending: Dr Mckeon This is an 86 year old male with a past medical history of esophageal cancer s/p chemo and radiation, previous hip fracture and repair, chronic anemia, hypertension and recurrent diarrhea that was being evaluated by GI and had a recent Colonoscopy 11/28/21 that revealed narrow sigmoid colon suspected extrinsic compression and ordered a CTAP. Patient had outpatient CT of the abdomen pelvis today that incidentally revealed suggestion of multiple pulmonary emboli in the right lung. Patient was then instructed to to come to the emergency department for admission. Patient was started on a heparin drip while in the ED. Patient had recent stool studies 12/11/2021 that were negative. Colonoscopy on 11/28/2021 with no specimens collected. Patient states he continues to have 10+ loose watery bowel movements daily with nocturnal episodes of diarrhea as well. Present on Admission?: Yes (2) Esophageal adenocarcinoma: Plan: Patient continues to follow with radiation Oncology S/P chemo and radiation (finished in July 2021) Tolerates regualr diet with regular thin liquids (3) Hypertension: Plan: Patient was taken off the Lisinopril and amlodipine recently due to the diarrhea. Continue to monitor (4) Diarrhea: Plan: Recent stool studies were negative Following with GI (5) Anemia: Plan: Hgb is currently 9.8 and stable for patient (6) Hip fracture: Plan: S/P repair in October OOB to chair with assistance PT/OT History of Present Illness Chief Complaint: Abnormal CT finding Primary Care Provider: Adalberto Salcido DO Attending: Dr Mckeon This is an 86 year old male with a past medical history of esophageal cancer s/p chemo and radiation, hypertension, osteoarthritis, history of left hip fracture with hip arthroplasty, chronic anemia presented to [facility] emergency department after having an outpatient CTAP and incidentally finding of right lung pulmonary embolism. Patient has never had any blot clots in the past and has never been on anticoagulation in the past. Patient was diagnosed with esophageal cancer in May 2021 and has had chemotherapy and radiation and continues to folloow with radiation/oncology. Patient then suffered a fall and fracture of his hip with repair in October 2021. Patient then states he was having issues with diarrhea. He had C Diff testing that was negative in the past and then was also evaluated by GI. Patient was taken off his amlodipine and lisinopril due to the diarrhea and this did not improve his bowel functions. Per patient's he is still off the lisinopril and amlodipine. As stated above patient was following with GI for the diarrhea and had a colonoscopy on 11/28/21 that revealed Findings: The rectum, descending colon, transverse colon, ascending colon and cecum appeared normal. the sigmoid colon was abnormally narrow without any evidence of luminal disease. A few small-mouthed diverticula were found in the colon. Impression: - The rectum, descending colon, transverse colon, ascending colon and cecum are normal. - No specimens collected. narrow sigmoid colon, suspect extrinsic compression. Recommendation: - Discharge patient to home (with escort). - Advance diet as tolerated today. -obtain CT A/P with IV and PO contrast to further evaluate for possible extrinsic compression. Kieran Smith MD 11/28/2021 11:48:28 AM Gi ordered a CTAP as stated above in their plan. The CTAP incidentally revealed the right lung PE and patient was instructed to come to the ED for admission. Patient's initial labs revealed a low but stable hemoglobin. Vitals are stable with a BP of 135/82 and O2 saturation of 98 on room air. The ER started patient on a heparin drip. Patient also had U/S lower extremities Patient denies any chest pain, shortness of breath, nausea, vomiting, unintentional weight loss. Patient admits to having lower extremity edema that is not new for him. Patient also admits to having 10+ loose watery bowel movements daily since his hip fracture in October and is currently following with GI for this. Allergies Allergy/AdvReac Type Severity Reaction Status Date / Time amlodipine AdvReac Intermediate SWELLING Verified 12/27/21 11:14 IN LEGS/PT NOT SURE Home Medications Medication Instructions Recorded Confirmed Type pantoprazole 40 mg tablet,delayed 40 mg PO BID 09/25/21 12/27/21 History release (Protonix) trazodone 50 mg tablet 50 mg PO HS 09/25/21 12/27/21 History sucralfate 100 mg/mL oral 1 g (10 mL) PO AC #1,000 mL 11/07/21 12/27/21 Rx suspension potassium chloride 20 mEq/15 mL 20 meq (15 mL) PO TID #1,200 mL 12/15/21 12/27/21 Rx oral liquid guar gum 1 tbsp PO TID 12/21/21 12/27/21 History apixaban 5 mg (74 tabs) tablets in 5 mg PO BID #74 ea 12/22/21 12/27/21 Rx a dose pack (Eliquis) cholestyramine (with sugar) 4 gram 4 g PO DAILY #348.6 grams 12/22/21 12/27/21 Rx oral powder (Questran) Past Med/Surg History Medical History Anemia Chronic diarrhea Dysphagia 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) Femoral neck fracture History of colon polyps History of high blood pressure History of nonmelanoma skin cancer Ileus Localized swelling of both lower legs Loss of appetite Low blood potassium Low vitamin D level Varicose vein of leg Weight loss Surgical History H/O esophagogastroduodenoscopy History of cataract surgery History of colonoscopy Hx of tonsillectomy Hx of total hip arthroplasty S/P hernia repair S/P rotator cuff repair S/P tooth extraction Status post Mohs surgery Family History Father Diabetes Colonic polyp Mother Alzheimer disease Daughter No problems noted. Other No family history of adverse response to anesthesia Denies family history of Ovarian cancer Prostate cancer Myocardial infarction Breast cancer Lung cancer Colorectal cancer Stroke Social History Smoking Status: Never smoker Second Hand Exposure: No; Hx Alcohol Use: Yes Alcohol type: beer Alcohol Intake Frequency: 2-3 x/Week Hx Substance Use: No Preferred Language: Albanian Communication Ability: Effective Visual Impairment: No Limitations Hearing Ability: Normal Billiard Player Required: No Beliefs That Will Affect Care: None marital status: Current Living Situation: Spouse Current Living Situation Comment: lives in Independent living at [facility] 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 Feels Safe at Home: Yes Childhood Exposure to Second-Hand Smoke: No caffeine: No during the past year weight has: decreased > 10 lbs Dental Care, Regularly: Yes Physical Activity Frequency: 1-2 Times per Week Physical Activity Frequency Comment: walking Seatbelt Use: always Sunscreen Use: Yes Do you think of yourself as: straight/heterosexual Assistive Devices: Cane and Glasses Review of Systems Review of Systems: All ROS negative unless stated above in the HPI Physical Exam Constitutional: well developed, well nourished, well groomed, cooperative and comfortable; no acute distress Eyes: PERRL, conjunctivae normal, anicteric sclerae ENMT: external ear and nose normal, oropharynx normal Ears: no hearing impairment Neck: trachea midline, no thyromegaly Respiratory: normal respiratory effort, lungs clear to auscultation normal respiratory effort Auscultation: lungs clear to auscultation bilaterally Cardiovascular: Rate/Rhythm: regular rate and regular rhythm Extremities: + calf tenderness and + edema Gastrointestinal (Abdomen): normal bowel sounds, soft, nontender, no hepatosplenomegaly Inspection/Auscultation: + abdomen distended Skin: no rashes, warm and dry Neurologic: patellar DTR's 2+ bilat, sensation intact Psychiatric: A+Ox3, euthymic affect Lymphatic: no cervical or axillary lymphadenopathy Results & Data Results & Data ([facility]) Vital Signs (Past 12 Hours) Vital Signs Temp Pulse Resp BP Pulse Ox O2 Del Method 12/21/21 17:17 36.8 C 96 H 18 135/82 98 Room Air Laboratory Results Abnormal lab results 12/21/21 12/21/21 Range/Units 17:32 17:32 RBC 3.03 L (4.63-6.08) M/uL Hgb 9.8 L (14.0-18.0) g/dl Hct 30.0 L (40.1-51.0) % RDW Std Deviation 55.3 H (36.4-46.3) fL RDW Coeff of Stefan 15.3 H (11.5-14.5) % Lymph # (Auto) 1.03 L (1.2-3.4) K/uL Glucose 120 H (70-99(Fasting)) mg/dl Diagnostic Findings [place], [place] [phone] CT Scan Report Patient:TUYET OBREGON Admit Date:12/21/21 MR#:[id number] Address1:[address] [place] [address] Acct ID:[id number] Address2:[address] Date:1935 [facility] Zip:[place] [address] Age:86 Location:CT Sex:M Room/Bed: Att Phy:Kieran Smith MD Diagnosis:R94.8 - Abnormal results of function studies of ot Kitty Phy:Adalberto Salcido DO Service Date:12/21/21 Fam Phy: Interpreting Phy:Chun Daniels MDAdmit Phy: Ordering Phy:Kieran Smith MD cc: ~ CT abd pelvis oral and IV con CLINICAL HISTORY: R94.8 - Abnormal results of function studies of other org.... History of esophageal mass. TECHNIQUE: Helical axial images of the abdomen and pelvis were obtained and d isplayed. Automated dose lowering techniques and/or adjustment according to patient size were utilized for this exam. This exam was performed with intravenous contrast. CT DOSE: 317.71 mGy.cm COMPARISON: Comparison is made to CT abdomen pelvis 06/14/2021 and PET/CT 11/06/2021 FINDINGS: Lower chest: There is a small right pleural effusion with associated atelectasis. Partially visualized, there is central hypodensities in right pulmonary artery segmental branches. Moderate atherosclerotic disease is seen. Liver: Subcentimeter hypodensities in the liver are too small to characterize. Gallbladder and biliary tree: No calcified gallstones. Normal caliber wall. No intra- or extrahepatic biliary ductal dilation. Pancreas: Unremarkable, no focal lesions. Spleen: Calcifications are noted in the spleen compatible with prior granulomatous disease. Adrenals: Unremarkable. Kidneys and ureters: Unremarkable. Bladder: Unremarkable. Reproductive organs: Prostatomegaly is seen. Bowel: Limited evaluation due to adjacent hip arthroplasty. There is suggestion of liquid contents in the sigmoid colon. Interval development of significant gaseous dilation of the colon without displacement of bowel loops to suggest volvulus. Compared to prior PET/CT, caliber change is less abrupt. There is a small hiatal hernia with distal esophageal contents noted. Lymph nodes Retroperitoneal: Unremarkable. Pelvic: Unremarkable. Mesenteric: Unremarkable. Peritoneum: A small amount of free fluid is in the pelvis. Vessels: Atherosclerotic calcifications are seen. Abdominal wall: Unremarkable. Bones: Degenerative changes in the visualized spine. Left hip arthroplasty is noted. IMPRESSION: 1. Redemonstration of prominent gaseous distention of the colon without evidence of volvulus or other acute abnormality. Compared to the prior PET/CT, the transition point is less distinct. 2. There is suggestion of multiple pulmonary emboli in the right lung within the limits of this nondedicated exam. Recommend CT PE protocol for further evaluation. 3. Additional findings as above.. ECG Additional Comments: DEC-2021 17:21:02 [facility]-EDSTAT ROUTINE RETRIEVAL Poor data quality, interpretation may be adversely affected Sinus rhythm with marked sinus arrhythmia Nonspecific ST abnormality Abnormal ECG When compared with ECG of 02-NOV-2021 23:45, Premature atrial complexes are no longer Present Minimal criteria for Inferior infarct are no longer Present 25mm/s10mm/[id number] 241CID: 13Unconfirmed Code Status & VTE Plan VTE Prophylaxis Plan VTE Prophylaxis will be ordered: Yes Supervising Physician Co-Signing Physician Notes Patient seen and examined at bedside. During face to face encounter, I obtained a history and physical examination. I reviewed above note and agree with it. I discussed plan of care with patient and APC Carl Will admit for pulmonary embolism. patient will be admitted on heparin drip. PG Care Time/CCT Total # of Minutes Spent Total Time Spent with Patient: Total time spent is greater than 50% in coordination of care (as documented) at patient's floor/unit and/or counseling patient: Coding Level of Care Code 88168 Initial Inpt Care Lvl 3 Diagnoses Pulmonary embolism I26.99 Esophageal adenocarcinoma C15.9 Hypertension I10 Diarrhea R19.7 Anemia D64.9 Hip fracture S72.009A
[2021-12-21 18:04] LABS: Basophils # (auto) 0.04 K/uL (0-0.2); Basophils % (auto) 0.8 %; Eosinophils # (auto) 0.15 K/uL (0-0.50); Eosinophils % (auto) 3.1 %; Hemoglobin 9.8 g/dl (14.0-18.0); Immature Granulocytes # (auto) 0.01 K/uL (0.00-0.02); Immature Granulocytes % (auto) 0.2 %; Lymphocytes # (auto) 1.03 K/uL (1.2-3.4); Mean Corpuscular Hemoglobin 32.3 pg (25.0-34.0); Mean Corpuscular Hgb Conc 32.7 g/dL (32.0-36.0); Mean Platelet Volume 9.4 fL (9.4-12.4); Monocytes # (auto) 0.48 K/uL (0.24-0.82); Monocytes % (auto) 9.8 %; Neutrophils % (auto) 65.1 %; Platelet Count 244 K/uL (130-400); RDW Coefficient of Variation 15.3 % (11.5-14.5); RDW Standard Deviation 55.3 fL (36.4-46.3); Red Blood Count 3.03 M/uL (4.63-6.08); White Blood Count 4.91 K/ul (4.8-10.8)
--- NOTE | 2021-12-21 18:10 | Emergency Department Note ---
Impression & Plan Pulmonary embolism, Anemia ED Provider Note NAME: TUYET OBREGON AGE: 86 SEX: M : 1935 ARRIVES VIA: Walk-In INFORMANT: Patient, ED PROVIDER(S): Marcello Schmitt DO CHIEF COMPLAINT: Abnormal CAT scan HPI: The patient is an 86-year-old male who presented to the emergency department for an evaluation of an abnormal CAT scan. The patient has been noticing some diarrhea and some other GI complaints. His primary gastroen terologist ordered a CT of the abdomen and pelvis. He was called today when he was on his way home and told to go back to the emergency department because the CAT scan of the abdomen showed clots in his lungs. He has no history of PE in the past. He has no history of DVT. He denies have any lower extremity swelling or pain. The patient has had some shortness of breath with exertion and generalized weakness. He denies having any black or bloody bowel moods. He has had no hematemesis. The patient has not been seen by his family doctor for the symptoms. ROS: See above HPI for pertinent positives & negatives. A total of 10 systems reviewed and were otherwise negative. PAST MEDICAL HISTORY: See Below PAST SURGICAL HISTORY: See Below FAMILY HISTORY: See Below SOCIAL HISTORY: See Below HOME MEDICATIONS: See Below ALLERGIES: See Below VITALS: See Below PHYSICAL EXAMINATION: GENERAL: Patient is awake alert in no acute distress patient is resting comfortably and showing no signs of anxiety EYES: The conjunctivae are clear. The pupils are round and reactive. EARS, NOSE, MOUTH AND THROAT: The nose is without any evidence of any deformity. Mucous membranes are moist. Tongue is midline. NECK: The neck is nontender and supple. RESPIRATORY: Normal respiratory effort is noted there is no evidence of wheezing rhonchi or rales CARDIOVASCULAR: Regular rate and rhythm noted there no murmurs rubs or gallops normal S1 normal S2. GASTROINTESTINAL: The abdomen is soft. Abdomen is nontender. MUSCULOSKELETAL/EXTREMITIES: There is no evidence of gross deformity full range of motion is noted in the hips and shoulders. SKIN: Skin is warm and dry. There is no significant pedal edema. NEUROLOGIC: Patient is awake alert and oriented x3 MEDICAL DECISION MAKING: The patient is an 86-year-old male who presented to the emergency department for an evaluation of abnormal CAT scan. The patient had a CT of his abdomen and pelvis. This was done because of a history of esophageal cancer. His primary needlemaker ordered this CAT scan. Incidentally the patient was noted to have signs of pulmonary embolism on CT. He was referred to the emergency department for further evaluation. The patient was started on heparin in the emergency department. I discussed the patient's laboratory and radiographic studies with him. Ultrasounds of the lower extremity did not reveal any signs of DVT. I [facility] the [facility] He may require a dedicated CT of the chest to further evaluate the extent of this process. The patient was agreeable to this plan. Triage Nursing notes reviewed. Prior medical records reviewed Vital Signs: reviewed and remarkable for no significant abnormalities Differential diagnosis: Reactive airway disease, pneumonia, pneumothorax, COPD, CHF, infections, cardiac ischemia, pulmonary embolism, musculoskeletal, gastrointestinal, as well as other pathologies. ER treatment provided: See below Diagnostics interpreted by me: ECG: EKG was obtained in the emergency department. My interpretation is sinus rhythm at 86 beats per minute. PACs were noted. There is no acute ST segment abnormalities noted. This was compared to a tracing from November 02, 2021. No significant changes were noted. Cardiac Monitoring: An order was placed for continuous cardiac monitoring. The monitor shows a rate of 70 bpm with sinus rhythm. Laboratory studies: As stated above and show below. Imaging studies: See below Consultation(s): I discussed this case with Dr. Mckeon who [facility] ED COURSE: Procedures: none Critical Care: I have personally spent greater than 45 minutes of critical care time in the direct management of this patient. This includes bedside care, interpretation of diagnostic studies, and testing, discussion with consultants, patient, and family members, and other required patient management activities. This 45 minutes is in excess of all separately billable procedures. 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) DX JUNE 2021 CHEMO/RADIATION TX (ENDED AUGUST 17 2021) PET SCAN 11/06/21 TOLD CONSIDERABLE IMPROVEMENT OF ESOPHAGUS, NOTED SOMETHING ABOUT ASPIRATION ASSOCIATED WITH THE LUNG AREA IN ADDITION SOMETHING NOTED ABOUT COLON ON PET SCAN/REASON FOR UPCOMING COLONOSCOPY Femoral neck fracture HX FALL SEP 2021, HIP FX / SX INTERVENTION History of colon polyps History of high blood pressure History of nonmelanoma skin cancer Ileus CHRONIC Localized swelling of both lower legs PROBLEM STARTED AFTER HIP FX IN SEP 2021, RIGHT LEG WORSE THAN LEFT - NO PAIN OR REDNESS - NO CHANGE FROM BASELINE Loss of appetite Low blood potassium BORDERLINE Low vitamin D level ? HX OR CURRENT STATUS Varicose vein of leg MOSTLY RIGHT PER PT Weight loss Surgical History H/O esophagogastroduodenoscopy History of cataract surgery bilt History of colonoscopy Hx of tonsillectomy Hx of total hip arthroplasty PARTIAL REPLACEMENT SEP 2021 D/T HIP FX, LEFT S/P hernia repair Bilateral inguinal hernia repair S/P rotator cuff repair HX RIGHT S/P tooth extraction HX Status post Mohs surgery X1 Family History Father , 93yo Diabetes Colonic polyp No cancer Mother , 87yo Alzheimer disease Daughter No problems noted. 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 Feels Safe at Home: Yes Childhood Exposure to Second-Hand Smoke: No caffeine: No during the past year weight has: decreased > 10 lbs Dental Care, Regularly: Yes Physical Activity Frequency: 1-2 Times per Week Physical Activity Frequency Comment: walking Seatbelt Use: always Sunscreen Use: Yes Do you think of yourself as: straight/heterosexual Assistive Devices: Cane and Glasses Allergies Allergies Allergy/AdvReac Type Severity Reaction Status Date / Time amlodipine AdvReac Intermediate SWELLING Verified 12/21/21 18:39 IN LEGS/PT NOT SURE Home Meds Home Medications Medication Instructions Recorded Confirmed pantoprazole 40 mg tablet,delayed 40 mg PO BID 09/25/21 12/21/21 release (Protonix) trazodone 50 mg tablet 50 mg PO HS 09/25/21 12/21/21 tramadol 50 mg tablet 50 mg PO DAILY PRN pain 12/07/21 12/21/21 guar gum 1 tbsp PO TID 12/21/21 12/21/21 Previous Rx's Medication Instructions Recorded sucralfate 100 mg/mL oral 1 g (10 mL) PO AC #1,000 mL 11/07/21 suspension potassium chloride 20 mEq/15 mL 20 meq (15 mL) PO TID #1,200 mL 12/15/21 oral liquid Results & Data (ED) Vital Signs Vital Signs - 24 hr 12/21/21 17:17 12/21/21 18:00 12/21/21 18:00 Temperature 36.8 C Temperature Source Temporal Artery Scan Pulse Rate 96 H Pulse Rhythm Respiratory Rate 18 18 Respiratory Effort / Characteristics Non-Labored Non-Labored Spontaneous Respiratory Depth Normal Blood Pressure 135/82 Blood Pressure Mean 99 Pulse Oximetry 98 98 98 Oxygen Delivery Method Room Air Room Air Room Air Sepsis Recent Fever Within 48 Hours No Sepsis New/Unexplained Change in Mental Status No Sepsis Action Taken by Nursing No Action Required 12/21/21 18:00 Temperature Temperature Source Pulse Rate 96 H Pulse Rhythm Regular Respiratory Rate 18 Respiratory Effort / Characteristics Respiratory Depth Blood Pressure Blood Pressure Mean Pulse Oximetry 98 Oxygen Delivery Method Room Air Sepsis Recent Fever Within 48 Hours Sepsis New/Unexplained Change in Mental Status Sepsis Action Taken by Senior Care Medications Current Medication List: was personally reviewed by me Laboratory Data Attestation: I reviewed the patient's lab results. Result diagrams: 12/21/21 17:32 12/21/21 17:32 Lab Results 12/21/21 12/21/21 12/21/21 Range/Units 17:32 17:32 17:32 WBC 4.91 (4.8-10.8) K/ul RBC 3.03 L (4.63-6.08) M/uL Hgb 9.8 L (14.0-18.0) g/dl Hct 30.0 L (40.1-51.0) % MCV 99.0 (80.0-100.0) fL MCH 32.3 (25.0-34.0) pg MCHC 32.7 (32.0-36.0) g/dL RDW Std Deviation 55.3 H (36.4-46.3) fL RDW Coeff of Stefan 15.3 H (11.5-14.5) % Plt Count 244 (130-400) K/uL MPV 9.4 (9.4-12.4) fL Immature Gran % (Auto) 0.2 % Neut % (Auto) 65.1 % Lymph % (Auto) 21.0 % Greene % (Auto) 9.8 % Eos % (Auto) 3.1 % Baso % (Auto) 0.8 % Neut # (Auto) 3.20 (1.4-6.5) K/uL Lymph # (Auto) 1.03 L (1.2-3.4) K/uL Greene # (Auto) 0.48 (0.24-0.82) K/uL Eos # (Auto) 0.15 (0-0.50) K/uL Baso # (Auto) 0.04 (0-0.2) K/uL Immature Gran # (Auto) 0.01 (0.00-0.02) K/uL PT 11.4 (9.0-12.0) Seconds INR 1.1 (0.9-1.1) APTT 25.6 (21.0-31.0) Seconds PTT Ratio 0.9 Sodium 137 (136-145) mmol/L Potassium 3.9 (3.5-5.1) mmol/L Chloride 105 (98-107) mmol/L Carbon Dioxide 27 (21-32) mmol/L Anion Gap 5 (3-11) BUN 15 (6-23) mg/dl Creatinine 1.14 (0.6-1.4) mg/dl Est Cr Clr Drug Dosing 45.3 ml/min Est GFR ( Amer) 68.1 ml/min Est GFR (Non-Af Amer) 58.7 ml/min BUN/Creatinine Ratio 13.2 (10-20) Glucose 120 H (70-99(Fasting)) mg/dl Calcium 9.5 (8.5-10.1) mg/dl Magnesium 1.7 (1.7-2.4) mg/dl Total Bilirubin 0.6 (0.2-1.0) mg/dl AST 21 (13-39) U/L ALT 15 (7-52) U/L Alkaline Phosphatase 50 (34-104) U/L Troponin I High Sens 16.2 (0-20) pg/ml Total Protein 6.8 (6.0-8.3) gm/dl Albumin 3.7 (3.4-5.0) gm/dl Globulin 3.1 (2.5-4.0) gm/dl Albumin/Globulin Ratio 1.2 (0.9-2) SARS-CoV-2, RNA, NAAT (NEGATIVE) 12/21/21 Range/Units 17:32 WBC (4.8-10.8) K/ul RBC (4.63-6.08) M/uL Hgb (14.0-18.0) g/dl Hct (40.1-51.0) % MCV (80.0-100.0) fL MCH (25.0-34.0) pg MCHC (32.0-36.0) g/dL RDW Std Deviation (36.4-46.3) fL RDW Coeff of Stefan (11.5-14.5) % Plt Count (130-400) K/uL MPV (9.4-12.4) fL Immature Gran % (Auto) % Neut % (Auto) % Lymph % (Auto) % Greene % (Auto) % Eos % (Auto) % Baso % (Auto) % Neut # (Auto) (1.4-6.5) K/uL Lymph # (Auto) (1.2-3.4) K/uL Greene # (Auto) (0.24-0.82) K/uL Eos # (Auto) (0-0.50) K/uL Baso # (Auto) (0-0.2) K/uL Immature Gran # (Auto) (0.00-0.02) K/uL PT (9.0-12.0) Seconds INR (0.9-1.1) APTT (21.0-31.0) Seconds PTT Ratio Sodium (136-145) mmol/L Potassium (3.5-5.1) mmol/L Chloride (98-107) mmol/L Carbon Dioxide (21-32) mmol/L Anion Gap (3-11) BUN (6-23) mg/dl Creatinine (0.6-1.4) mg/dl Est Cr Clr Drug Dosing ml/min Est GFR ( Amer) ml/min Est GFR (Non-Af Amer) ml/min BUN/Creatinine Ratio (10-20) Glucose (70-99(Fasting)) mg/dl Calcium (8.5-10.1) mg/dl Magnesium (1.7-2.4) mg/dl Total Bilirubin (0.2-1.0) mg/dl AST (13-39) U/L ALT (7-52) U/L Alkaline Phosphatase (34-104) U/L Troponin I High Sens (0-20) pg/ml Total Protein (6.0-8.3) gm/dl Albumin (3.4-5.0) gm/dl Globulin (2.5-4.0) gm/dl Albumin/Globulin Ratio (0.9-2) SARS-CoV-2, RNA, NAAT NEGATIVE (NEGATIVE) Administered Medications Heparin Sodium/Dextrose (Heparin Sodium/Dextrose) 25,000 units in 500 mls @ 24 mls/hr IV .[id number] [facility]; Protocol Stop: 01/20/22 18:14 Last Admin: 12/21/21 19:13 Dose: 1,200 units/hr, 24 mls/hr Documented By: Co-signed By: [facility] [place] Imaging Data Radiologist's Impression: Venous Doppler Study 12/21/21 17:54 US venous doppler LE BI CLINICAL HISTORY: PE TECHNIQUE: Bilateral lower extremity real-time compression venous ultrasound with Color Doppler imaging. Utilizing real-time ultrasonic imaging multiple real time high-resolution ultrasonic images with compression and noncompression maneuvers of the deep venous system in addition to color doppler imaging were performed from the common femoral vein through the proximal calf veins. COMPARISON: None available at the time of this dictation. FINDINGS: Currently there is normal compressibility of the deep venous system from the common femoral vein through the proximal calf veins. No superficial venous thrombosis is identified. Impression: No evidence of deep venous thrombus. ACT 112: Negative or not required by law. Electronically signed by: Chun Daniels M.D. 12/21/2021 7:09 PM Discharge Plan Visit Data Chief Complaint: Referred by Doctor Stated Complaint: REFERRED BY DOCTOR, EMBULISM TO THE LUNG, ED Provider: Marcello Schmitt Discharge Problem: Pulmonary embolism, Anemia Patient Disposition: Admitted As Inpatient Discharge Instructions Interventions: ED Discharge Assessment Last Done: 12/21/21 20:35
[2021-12-21] MEDS ORDERED: HEPARIN SODIUM/DEXTROSE 25,000 UNITS/500 ML BAG IV SCH (18:15)
[2021-12-21 18:19] LABS: INR 1.1 (0.9-1.1); Partial Thromboplastin Ratio 0.9; Partial Thromboplastin Time 25.6 Seconds (21.0-31.0); Prothrombin Time 11.4 Seconds (9.0-12.0)
[2021-12-21 18:21] LABS: Albumin Globulin Ratio 1.2 (0.9-2); Albumin Level 3.7 gm/dl (3.4-5.0); BUN Creatinine Ratio 13.2 (10-20); Bilirubin,Total 0.6 mg/dl (0.2-1.0); Calcium 9.5 mg/dl (8.5-10.1); Creatinine Clr Calc Pharmacy 45.3 ml/min; Est GFR (African American) 68.1 ml/min; Est GFR (Non-African American) 58.7 ml/min; Globulin 3.1 gm/dl (2.5-4.0); Magnesium 1.7 mg/dl (1.7-2.4); Potassium 3.9 mmol/L (3.5-5.1); Total Protein 6.8 gm/dl (6.0-8.3)
[2021-12-21 18:23] LABS: Troponin I High Sensitivity 16.2 pg/ml (0-20)
--- NOTE | 2021-12-21 19:11 | Ultrasound Report ---
US venous doppler LE BI CLINICAL HISTORY: PE TECHNIQUE: Bilateral lower extremity real-time compression venous ultrasound with Color Doppler imagi ng. Utilizing real-time ultrasonic imaging multiple real time high-resolution ultrasonic images with compression and noncompression maneuvers of the deep venous system in addition to color doppler imagi ng were performed from the common femoral vein through the proximal calf veins. COMPARISON: None available at the time of this dictation. FINDINGS: Currently there is normal compressibility of the deep venous system from the common femoral vein thro ugh the proximal calf veins. No superficial venous thrombosis is identified. Impression: No evidence of deep venous thrombus. ACT 112: Negative or not required by law. Electronically signed by: Chun Daniels M.D. 12/21/2021 7:09 PM
[2021-12-21] MEDS ORDERED: ACETAMINOPHEN 325 MG TAB PO PRN (21:55)
[2021-12-21] MEDS ORDERED: POLYETHYLENE (MIRALAX) 17 GM PACK PO PRN (21:55)
[2021-12-21] MEDS ORDERED: traMADol HCL 50 MG TABLET PO PRN (21:55)
[2021-12-21] MEDS ORDERED: traZODone HCL 50 MG TAB PO SCH (22:00)
[2021-12-21] MEDS: POTASSIUM CHLORIDE 20 MEQ/15 ML UDC PO SCH (23:06)
[2021-12-21] MEDS: PANTOprazole 40 MG TAB PO SCH (23:07)
[2021-12-22 01:38] LABS: Partial Thromboplastin Ratio 2.4
[2021-12-22 01:45] LABS: Partial Thromboplastin Time 64.9 Seconds (21.0-31.0)
[2021-12-22] MEDS: SUCRALFATE 1 GM/10 ML UDC PO SCH ×3 (07:41→16:13)
[2021-12-22] MEDS: POTASSIUM CHLORIDE 20 MEQ/15 ML UDC PO SCH ×2 (08:02→13:21)
[2021-12-22] MEDS: PANTOprazole 40 MG TAB PO SCH (08:02)
--- NOTE | 2021-12-22 08:05 | Hospitalist Progress Note ---
Date of Service December 22, 2021 Assessment & Plan (1) Pulmonary embolism: Plan: Attending: Dr Mckeon This is an 86 year old male with a past medical history of esophageal cancer s/p chemo and radiation, previous hip fracture and repair, chronic anemia, hypertension and recurrent diarrhea that was being evaluated by GI and had a recent Colonoscopy 11/28/21 that revealed narrow sigmoid colon suspected extrinsic compression and ordered a CTAP. Patient had outpatient CT of the abdomen pelvis today that incidentally revealed suggestion of multiple pulmonary emboli in the right lung. Patient was then instructed to to come to the emergency department for admission. Patient was started on a heparin drip while in the ED. Patient had recent stool studies 12/11/2021 that were negative. Colonoscopy on 11/28/2021 with no specimens collected. Patient states he continues to have 10+ loose watery bowel movements daily with nocturnal episodes of diarrhea as well. Patient had venous doppler of lower legs that was negative for DVT Hgb and Hct remains stable BP remains elevated, patient states he had previously been on Lisinopril and amlodipine in the past and these were repordaly stopped secondary to the diarrhea, but per the PCP notes these were stopped secondary to hypotension and orthostasis (2) Esophageal adenocarcinoma: Plan: Patient continues to follow with radiation Oncology S/P chemo and radiation (finished in July 2021) Tolerates regualr diet with regular thin liquids (3) Hypertension: Plan: Patient was taken off the Lisinopril and amlodipine recently due to the diarrhea. Continue to monitor (4) Diarrhea: Plan: Recent stool studies were negative Following with GI (5) Anemia: Plan: Hgb is currently 9.8 and stable for patient (6) Hip fracture: Plan: S/P repair in October OOB to chair with assistance PT/OT Admission and Anticipated Discharge Date Admission Date: December 21, 2021 Subjective Attending: Dr Mckeon 86 year old male with a past medical history of esophageal cancer s/p chemo and radiation, previous hip fracture and repair, chronic anemia, hypertension and recurrent diarrhea that was being evaluated by GI and had a recent Colonoscopy 11/28/21 that revealed narrow sigmoid colon suspected extrinsic compression and ordered a CTAP. Patient had outpatient CT of the abdomen pelvis today that incidentally revealed suggestion of multiple pulmonary emboli in the right lung. Patient was then instructed to to come to the emergency department for admission. Patient was started on a heparin drip while in the ED. Results & Data Results & Data ([facility]) Vital Signs (Past 12 Hours) Vital Signs Temp Pulse Pulse Pulse Resp BP BP 12/22/21 06:47 36.5 C 72 18 161/72 H 12/22/21 04:11 36.4 C L 75 16 166/65 H 12/21/21 21:15 12/21/21 21:15 36.4 C L 87 16 174/91 H 12/21/21 23:13 36.7 C 68 18 143/71 H 12/21/21 20:39 70 18 134/63 12/21/21 20:35 Pulse Ox O2 Del Method 12/22/21 06:47 100 Room Air 12/22/21 04:11 100 Room Air 12/21/21 21:15 Room Air 12/21/21 21:15 95 Room Air 12/21/21 23:13 100 Room Air 12/21/21 20:39 100 Room Air 12/21/21 20:35 Room Air PG Care Time/CCT Total # of Minutes Spent Total Time Spent with Patient: Total time spent is greater than 50% in coordination of care (as documented) at patient's floor/unit and/or counseling patient: Coding Diagnoses Pulmonary embolism I26.99 Esophageal adenocarcinoma C15.9 Hypertension I10 Diarrhea R19.7 Anemia D64.9 Anemia type: unspecified type Hip fracture S72.009A (1) Anemia Anemia type: unspecified type Qualified Code(s): D64.9 - Anemia, unspecified
[2021-12-22 08:09] LABS: Hematocrit (blood only) 28.3 % (40.1-51.0); Hemoglobin 9.7 g/dl (14.0-18.0); Mean Corpuscular Hemoglobin 32.7 pg (25.0-34.0); Mean Corpuscular Hgb Conc 34.3 g/dL (32.0-36.0); Mean Corpuscular Volume 95.3 fL (80.0-100.0); Platelet Count 164 K/uL (130-400); RDW Standard Deviation 52.3 fL (36.4-46.3); Red Blood Count 2.97 M/uL (4.63-6.08); White Blood Count 3.23 K/ul (4.8-10.8)
[2021-12-22 08:27] LABS: BUN Creatinine Ratio 11.3 (10-20); Calcium 9.1 mg/dl (8.5-10.1); Est GFR (African American) 74.3 ml/min; Est GFR (Non-African American) 64.1 ml/min; Potassium 3.5 mmol/L (3.5-5.1)
[2021-12-22 08:35] LABS: Partial Thromboplastin Ratio 3.7
[2021-12-22 08:51] LABS: Partial Thromboplastin Time 102.9 Seconds (21.0-31.0)
[2021-12-22] MEDS: MAGNESIUM SULFATE / D5W 1 GM/100 ML BAG IV SCH ×3 (09:24→11:17)
--- NOTE | 2021-12-22 10:11 | Gastrointestinal Consultation ---
Date of Consultation December 22, 2021 Assessment & Plan (1) Diarrhea: Plan Discussed case with Dr. Smith who advised on plan. - can start Questran 4gm once daily for diarrhea. would stop for any signs of constipation. would not advance beyond once daily dosing. - would consider surgical evaluation for extrinsic compression seen on colonoscopy as well as PET imaging. Supervising Physician Co-Signing Physician Notes I personally evaluated the patient and agree with the findings as documented by Parth Richmond, PAC Exam: Constitutional: WD/WN, vitals as above General: EOM intact bilaterally Neck: normal visual inspection Respiratory: normal respiratory effort, lungs clear to auscultation Cardiovascular: RRR, no murmur, no edema Gastrointestinal: abdomennormal to inspection, nondistended, soft, nontender, no hepatosplenomegaly Musculoskeletal: no cyanosis, head normal to inspection Skin: no rashes, warm and dry Neurologic: moves all extremities Psychiatric: A and O x3, euthymic affect agree with questran daily at this time, has follow up with me next week in the office scheduled already december 27. History of Present Illness Reason for Consultation: Diarrhea Requesting Physician: Dr. Lokesh Mckeon Attending Physician: Lokesh Mckeon History of Present Illness Patient is an 86 year old male with past medical history significant for esoph ageal cancer s/p chemo/radiation (finished July 2021), chronic anemia, HTN, and recurrent diarrhea that presented to the ED after having CT scan done that suggested pulmonary emboli. He tells me that he has had issues with bouts of 8- 10 bowel movements daily for the past several months. He has tried imodium as an outpatient without relief. He hasd also stopped his lisinopril and amlodipine in the past thinking these were causing his symptoms but he saw no improvement. He underwent a colonoscopy on 11/28/21 that revealed narrowing of sigmoid colon with suspected extrinsic compression. The CT scan that found the Pulmonary emboli was done for further evaluation. Patient denies any current issues with nausea, vomiting, dysphagia, heartburn, abdominal pain, unintentional weight loss, melena, or bright red blood per rectum. Allergies Allergy/AdvReac Type Severity Reaction Status Date / Time amlodipine AdvReac Intermediate SWELLING Verified 12/21/21 18:39 IN LEGS/PT NOT SURE Home Medications Medication Instructions Recorded Confirmed Type pantoprazole 40 mg tablet,delayed 40 mg PO BID 09/25/21 12/21/21 History release (Protonix) trazodone 50 mg tablet 50 mg PO HS 09/25/21 12/21/21 History sucralfate 100 mg/mL oral 1 g (10 mL) PO AC #1,000 mL 11/07/21 12/21/21 Rx suspension tramadol 50 mg tablet 50 mg PO DAILY PRN pain 12/07/21 12/21/21 History potassium chloride 20 mEq/15 mL 20 meq (15 mL) PO TID #1,200 mL 12/15/21 1 02/20/21 Rx oral liquid guar gum 1 tbsp PO TID 12/21/21 12/21/21 History Patient History Medical History Anemia PT DENIES Chronic diarrhea REASON FOR UPCOMING COLONOSCOPY Dysphagia MUCH BETTER 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) DX JUNE 2021 CHEMO/RADIATION TX (ENDED AUGUST 17 2021) PET SCAN 11/06/21 TOLD CONSIDERABLE IMPROVEMENT OF ESOPHAGUS, NOTED SOMETHING ABOUT ASPIRATION ASSOCIATED WITH THE LUNG AREA IN ADDITION SOMETHING NOTED ABOUT COLON ON PET SCAN/REASON FOR UPCOMING COLONOSCOPY Femoral neck fracture HX FALL SEP 2021, HIP FX / SX INTERVENTION History of colon polyps History of high blood pressure History of nonmelanoma skin cancer Ileus CHRONIC Localized swelling of both lower legs PROBLEM STARTED AFTER HIP FX IN SEP 2021, RIGHT LEG WORSE THAN LEFT - NO PAIN OR REDNESS - NO CHANGE FROM BASELINE Loss of appetite Low blood potassium BORDERLINE Low vitamin D level ? HX OR CURRENT STATUS Varicose vein of leg MOSTLY RIGHT PER PT Weight loss Surgical History H/O esophagogastroduodenoscopy History of cataract surgery bilt History of colonoscopy Hx of tonsillectomy Hx of total hip arthroplasty PARTIAL REPLACEMENT SEP 2021 D/T HIP FX, LEFT S/P hernia repair Bilateral inguinal hernia repair S/P rotator cuff repair HX RIGHT S/P tooth extraction HX Status post Mohs surgery X1 Family History Father , 93yo Diabetes Colonic polyp No cancer Mother , 87yo Alzheimer disease Daughter No problems noted. Other No family history of adverse response to anesthesia Denies family history of Ovarian cancer Prostate cancer Myocardial infarction Breast cancer Lung cancer Colorectal cancer Stroke Social History Smoking Status: Never smoker Second Hand Exposure: No; Hx Alcohol Use: Yes Alcohol type: beer Alcohol Intake Frequency: 2-3 x/Week Hx Substance Use: No Preferred Language: Urdu Communication Ability: Effective Visual Impairment: No Limitations Hearing Ability: Normal Project Economist Required: No Beliefs That Will Affect Care: None marital status: Current Living Situation: Spouse Current Living Situation Comment: lives in Independent living at [facility] 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 Feels Safe at Home: Yes Childhood Exposure to Second-Hand Smoke: No caffeine: No during the past year weight has: decreased > 10 lbs Dental Care, Regularly: Yes Physical Activity Frequency: 1-2 Times per Week Physical Activity Frequency Comment: walking Seatbelt Use: always Sunscreen Use: Yes Do you think of yourself as: straight/heterosexual Assistive Devices: Cane and Glasses Review of Systems Review of Systems: All systems reviewed & are unremarkable except as noted in HPI & below Physical Exam Constitutional: WD/WN, vitals as above Respiratory: normal respiratory effort, lungs clear to auscultation Cardiovascular: RRR, no murmur, no edema Gastrointestinal (Abdomen): normal bowel sounds, soft, nontender, no hepatosplenomegaly Skin: no rashes, warm and dry Psychiatric: Orientation: alert and oriented x 3 Affect: euthymic affect Results & Data ([facility]) Vital Signs (Past 12 Hours) Vital Signs Temp Pulse Pulse Resp BP Pulse Ox O2 Del Method 12/22/21 06:47 36.5 C 72 18 161/72 H 100 Room Air 12/22/21 04:11 36.4 C L 75 16 166/65 H 100 Room Air 12/21/21 23:13 36.7 C 68 18 143/71 H 100 Room Air PG Care Time/CCT Total # of Minutes Spent Total Time Spent with Patient: Total time spent is greater than 50% in coordination of care (as documented) at patient's floor/unit and/or counseling patient: Coding Level of Care Code 70481 Initial Inpt Care Lvl 3 Diagnoses Diarrhea R19.7
--- NOTE | 2021-12-22 10:40 | Electrocardiogram Report ---
Test Reason : Blood Pressure : / mmHG Vent. Rate : 086 BPM Atrial Rate : 096 BPM P-R Int : 176 ms QRS Dur : 074 ms QT Int : 376 ms P-R-T Axes : 000 014 063 degrees QTc Int : 449 ms Poor data quality, interpretation may be adversely affected Sinus rhythm with PACs Nonspecific ST abnormality Abnormal ECG When compared with ECG of 02-NOV-2021 23:45, Minimal criteria for Inferior infarct are no longer Present Confirmed by Naren Quinonez ([id number]) on 12/22/2021 10:40:02 AM Referred By: Kieran Smith Confirmed By:Josep Quinonez
[2021-12-22] MEDS ORDERED: CHOLESTYRAMINE LIGHT 4 GM PKT PO ONE (10:41)
--- NOTE | 2021-12-22 10:56 | Nuclear Medicine Report ---
NM pul perfusion CLINICAL HISTORY: pulmonary emboli. Abnormal CT. Possible right-sided pulmonary emboli. COMPARISON STUDY: Abdomen and pelvis CT 12/21/2021. Chest x-ray 09/25/2021. TECHNIQUE: Immediately following the intravenous administration of 5.1 mCi of technetium 99 M MAA for the perfusion scan, anterior, oblique, lateral, and posterior views of the chest were obtained. FINDINGS: Prominence of the cardiac silhouette and bilateral felecia. Questionable small perfusion defec t at the right middle lobe. No filling defects within the left lung. Heterogeneous perfusion of the l ungs is noted. IMPRESSION: Questionable small perfusion defect at the right middle lobe. This suggests an intermedi ate probability scan. Dedicated chest CTA is recommended to assess for a pulmonary embolus. ACT 112: Negative or not required by law. Electronically signed by: Emil Wong M.D. 12/22/2021 10:55 AM
--- NOTE | 2021-12-22 11:27 | XCELERA ---
[id number]
[2021-12-22 15:32] LABS: Partial Thromboplastin Ratio 2.2
[2021-12-22] MEDS ORDERED: APIXABAN 5 MG TABLET PO SCH (16:00)
[2021-12-22 16:12] VITALS: BP 165/87; TEMP 97.7; O2SAT 99
--- NOTE | 2021-12-22 16:42 | Discharge Summary ---
Date of Service December 22, 2021 Admission HPI Per Admitting Provider Attending: Dr Mckeon This is an 86 year old male with a past medical history of esophageal cancer s/p chemo and radiation, hypertension, osteoarthritis, history of left hip fracture with hip arthroplasty, chronic anemia presented to [facility] emergency department after having an outpatient CTAP and incidentally finding of right lung pulmonary embolism. Patient has never had any blot clots in the past and has never been on anticoagulation in the past. Patient was diagnosed with esophageal cancer in May 2021 and has had chemotherapy and radiation and continues to folloow with radiation/oncology. Patient then suffered a fall and fracture of his hip with repair in October 2021. Patient then states he was having issues with diarrhea. He had C Diff testing that was negative in the past and then was also evaluated by GI. Patient was taken off his amlodipine and lisinopril due to orthostasis and hypotension. Per patient's he is still off the lisinopril and amlodipine. As stated above patient was following with GI for the diarrhea and had a colonoscopy on 11/28/21 that revealed Findings: The rectum, descending colon, transverse colon, ascending colon and cecum appeared normal. the sigmoid colon was abnormally narrow without any evidence of luminal disease. A few small-mouthed diverticula were found in the colon. Impression: - The rectum, descending colon, transverse colon, ascending colon and cecum are normal. - No specimens collected. narrow sigmoid colon, suspect extrinsic compression. Recommendation: - Discharge patient to home (with escort). - Advance diet as tolerated today. -obtain CT A/P with IV and PO contrast to further evaluate for possible extrinsic compression. Kieran Smith MD 11/28/2021 11:48:28 AM GI ordered a CTAP as stated above in their plan. The CTAP incidentally revealed the right lung PE and patient was instructed to come to the ED for admission. Patient's initial labs revealed a low but stable hemoglobin. Vitals are stable with a BP of 135/82 and O2 saturation of 98 on room air. The ER started patient on a heparin drip. Patient also had U/S lower extremities Patient denies any chest pain, shortness of breath, nausea, vomiting, unintentional weight loss. Patient admits to having lower extremity edema that is not new for him. Patient also admits to having 10+ loose watery bowel movements daily since his hip fracture in October and is currently following with GI for this. Admission Exam Per Admitting Provider Constitutional: well developed, well nourished, well groomed, cooperative and comfortable; no acute distress Eyes: PERRL, conjunctivae normal, anicteric sclerae ENMT: external ear and nose normal, oropharynx normal Ears: no hearing impairment Neck: trachea midline, no thyromegaly Respiratory: normal respiratory effort, lungs clear to auscultation normal respiratory effort Auscultation: lungs clear to auscultation bilaterally Cardiovascular: Rate/Rhythm: regular rate and regular rhythm Extremities: + calf tenderness and + edema Gastrointestinal (Abdomen): normal bowel sounds, soft, nontender, no hepatosplenomegaly Inspection/Auscultation: + abdomen distended Skin: no rashes, warm and dry Neurologic: patellar DTR's 2+ bilat, sensation intact Psychiatric: A+Ox3, euthymic affect Lymphatic: no cervical or axillary lymphadenopath Principal Diagnosis Pulmonary emboli Discharge Exam Constitutional well developed, well nourished, well groomed, cooperative and comfortable; no acute distress Eyes left subconjunctival hemorrhage ENMT external ear and nose normal, oropharynx normal Ears: no hearing impairment Neck trachea midline, no thyromegaly Respiratory normal respiratory effort, lungs clear to auscultation normal respiratory effort Auscultation: lungs clear to auscultation bilaterally Cardiovascular Rate/Rhythm: regular rate and regular rhythm Extremities: + calf tenderness and + edema Gastrointestinal (Abdomen) normal bowel sounds, soft, nontender, no hepatosplenomegaly Inspection/Auscultation: + abdomen distended Skin no rashes, warm and dry Neurologic patellar DTR's 2+ bilat, sensation intact Psychiatric A+Ox3, euthymic affect Lymphatic no cervical or axillary lymphadenopathy Discharge Data Allergies Allergy/AdvReac Type Severity Reaction Status Date / Time amlodipine AdvReac Intermediate SWELLING Verified 12/27/21 11:14 IN LEGS/PT NOT SURE Consultations 12/21/21 17:53 ED Decision to Admit Stat 12/22/21 06:01 Consult Gastroenterology Routine Ordered Studies Venous Doppler Study 12/21/21 17:54 US venous doppler LE BI CLINICAL HISTORY: PE TECHNIQUE: Bilateral lower extremity real-time compression venous ultrasound with Color Doppler imaging. Utilizing real-time ultrasonic imaging multiple real time high-resolution ultrasonic images with compression and noncompression maneuvers of the deep venous system in addition to color doppler imaging were performed from the common femoral vein through the proximal calf veins. COMPARISON: None available at the time of this dictation. FINDINGS: Currently there is normal compressibility of the deep venous system from the common femoral vein through the proximal calf veins. No superficial venous thrombosis is identified. Impression: No evidence of deep venous thrombus. ACT 112: Negative or not required by law. Electronically signed by: Chun Daniels M.D. 12/21/2021 7:09 PM Pulmonary Perfusion Imaging 12/22/21 06:02 NM pul perfusion CLINICAL HISTORY: pulmonary emboli. Abnormal CT. Possible right-sided pulmonary emboli. COMPARISON STUDY: Abdomen and pelvis CT 12/21/2021. Chest x-ray 09/25/2021. TECHNIQUE: Immediately following the intravenous administration of 5.1 mCi of technetium 99 M MAA for the perfusion scan, anterior, oblique, lateral, and posterior views of the chest were obtained. FINDINGS: Prominence of the cardiac silhouette and bilateral felecia. Questionable small perfusion defect at the right middle lobe. No filling defects within the left lung. Heterogeneous perfusion of the lungs is noted. IMPRESSION: Questionable small perfusion defect at the right middle lobe. This suggests an intermediate probability scan. Dedicated chest CTA is recommended to assess for a pulmonary embolus. ACT 112: Negative or not required by law. Electronically signed by: Emil Wong M.D. 12/22/2021 10:55 AM Echocardiogram report Left ventricular systolic function is normal. The right ventricle is normal in size and function. There is moderate mitral regurg. Hospital Course (1) Pulmonary embolism: Attending: Dr Mckeon This is an 86 year old male with a past medical history of esophageal cancer s/p chemo and radiation, previous hip fracture and repair, chronic anemia, hypertension and recurrent diarrhea that was being evaluated by GI and had a recent Colonoscopy 11/28/21 that revealed narrow sigmoid colon suspected extrinsic compression and ordered a CTAP. Patient had outpatient CT of the abdomen pelvis today that incidentally revealed suggestion of multiple pulmonary emboli in the right lung. Patient was then instructed to to come to the emergency department for admission. Patient was started on a heparin drip while in the ED. Patient had recent stool studies 12/11/2021 that were negative. Colonoscopy on 11/28/2021 with no specimens collected. Patient states he continues to have 10+ loose watery bowel movements daily with nocturnal episodes of diarrhea as well. Patient had venous doppler of lower legs that was negative for DVT VQ scan also Revealed questionable small perfusion defect at the right middle lobe. This suggest an intermediate probability scan. Hgb and Hct remains stable BP remains elevated, patient states he had previously been on Lisinopril and amlodipine in the past and these were reportedly stopped secondary to the diarrhea, but per the PCP notes these were stopped secondary to hypotension and orthostasis Patient has an outpatient follow up scheduled with GI service. He was started on questran 4 gm packet daily upon discharge Patient was started on IV Heparin and then was changed over to Eliquis 10mg BID for the first 7 days and then 5mg BID after for 3 months. Patient was given the first dose of 10 mg while in the hospital prior to discharge. Spoke with general surgery as well as pulmonology regarding this patient Dr. Zheng recommended 3 months anticoagulation and follow-up with Dr. 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 Continue to monitor (4) Diarrhea: Recent stool studies were negative Following with GI (5) Anemia: Hgb is currently 9.8 and stable for patient (6) Hip fracture: S/P repair in October OOB to chair with assistance PT/OT Total Time Total Time Spent Total Time Spent (In Minutes): 50 minutes Discharge Plan Discharge Items Patient Disposition: Home - Self-Care Reason For Visit: NEW PE FOUND ON OUTPATIENT CT Discharge Diagnosis: pulmonary emboli Goals: You have been hospitalized for an acute medical problem. During your stay at [facility], we have made an effort to correct the problem that brought you to the hospital while keeping you as comfortable as possible. Med ications were used to bring your condition under control and your discharge instructions will include directions for any medications you should take after leaving the hospital. Please make sure you see your Primary Care Provider as part of your follow up plan. Activity: Resume your previous activity Non-emergency contact: Primary Care Provider, Wind Turbine Design Engineer and Oncologist Call non-emergency contact if: you have any medication questions Follow-up/Referrals: Kieran Smith MD [Physician] - Adalberto Salcido DO [Primary Care Provider] - 12/29/21 11:30 am Sandra Gloria MD [Physician] - (1-2 weeks) Diet: Heart Healthy Addtl Attending Provider Instructions: You were admitted for a CT finding of pulmonary emboli and you were treated with IV Heparin. You then were rx Eliquis 5mg and will need to take this medication 2 times a day for 3 months. You will need to take 10mg 2 times daily for the first 7 days and the will take 5mg 2 times daily after the first 7 days. You will need to follow up with Hematology/Oncology Dr Woo and also with GI. Also we started you on Questran 4mg packet daily. Pending Studies at Discharge: No Stand-Alone Forms: My [facility] Medications and DC Order Prescriptions: New cholestyramine (with sugar) [Questran] 4 gram powder 4 g PO DAILY Qty: 348.6 0RF Rx Instructions: administer w/meal; avoid other meds within 1hr before or 4-6hr after dose Eliquis 5 mg (74 tabs) tablets,dose pack 5 mg PO BID Qty: 74 0RF Rx Instructions: Take 2 tablets for twice a day for 7 days then 1 tablet twice a day. Continued sucralfate 100 mg/mL suspension 1 g PO AC Qty: 1000 0RF potassium chloride 20 mEq/15 mL liquid 20 meq PO TID Qty: 1200 0RF guar gum Packet 1 tbsp PO TID Rx Instructions: mix into at least 4 oz water or juice before administering pantoprazole [Protonix] 40 mg tablet,delayed release (DR/EC) 40 mg PO BID trazodone 50 mg tablet 50 mg PO HS Discharge Orders: Discharge Order (Routine); Ordered 12/22/21 Ordered By: Claudia Henry Admission Data Admit Date/Time: 12/21/21 18:26 Attending Provider: Lokesh Mckeon Admit Provider: Lokesh Mckeon Primary Care Provider: Adalberto Salcido Other Providers: Lokesh Mckeon ; Kieran Smith Other Interventions: Discharge Summary Assessment (RN) Last Done: 12/22/21 17:32 Supervising Physician Co-Signing Physician Notes Patient seen and examined at bedside. During face to face encounter, I obtained a summary of hospital stay and brief physical examination. I reviewed above note and agree with it. I discussed plan of care with patient and LENY Henry. Patient managed for a Pulmonary emboli, will be discharged on Eliquis. Coding Level of Care Code 47724 OBS Care - Discharge Diagnoses Pulmonary embolism I26.99 Esophageal adenocarcinoma C15.9 Hypertension I10 Diarrhea R19.7 Anemia D64.9 Anemia type: unspecified type Hip fracture S72.009A Time Spent (min) 50
[2021-12-22] MEDS ORDERED: APIXABAN 5 MG TABLET PO ONE (17:30)
[2021-12-22 17:35] VITALS: PULSE 68
[2021-12-22 21:17] LABS: Partial Thromboplastin Time 61.7 Seconds (21.0-31.0)
[2021-12-22] MEDS ORDERED: CHOLESTYRAMINE LIGHT 4 GM PKT PO SCH (22:00)
== END 2021-12-22 18:31 | disposition home or self-care (01) | DRG 176 ==
LOC: ED 17:10 → 2N 18:26

== ENCOUNTER 2022-07-19 09:06 | Inpatient (IN) ==
[2022-07-19] MEDS ORDERED: dexAMETHasone**PF** 10 MG/ML VIAL IV ONE (09:35)
--- NOTE | 2022-07-19 09:40 | Emergency Department Note ---
Impression & Plan Bleeding in brain, Metastatic cancer to brain ED Provider Note INFORMANT: Patient ED PROVIDER(S): Alejandro Harper DO CHIEF COMPLAINT: Memory changes PLAN: Disposition: Admission Outpatient prescription management: none Discussion with: Dr. Gloria from oncology. Also spoke with Dr. Schmidt from neur osurgery at [facility]. Also spoke with the radiation oncologist Dr. De Anda from here. Also spoke with the hospitalist. MEDICAL DECISION MAKING: This is a 86-year-old male who presents to the ED with a chief complaint of memory loss over the past several weeks. The patient had an outpatient CT scan today this morning by the oncologist. She contacted me about the results. The patient has at least 2 hemorrhagic metastatic lesions in the brain that have not previously been discovered. The patient denies any headaches. Other than the memory loss, that was provided by the , no other specific complaints at this time. No nausea or vomiting. The oncologist suggest that the patient should be started on some high-dose steroids, 4 mg IV dexamethasone every 6 hours. She also wanted us to consult neurosurgery at [facility] to see if any neurosurgical intervention would be warranted. The patient's exam was otherwise unremarkable. He has no focal weakness. Denies headaches. No distress. Vital signs are stable. CT scan of the brain has been reviewed by myself. I did review the CT scan of the brain with neurosurgery from [facility] as well as radiation oncologist. The patient will be admitted by the medicine ser vice for further evaluation and possible radiation therapy. The patient was treated with IV steroids. Dr. Gloria recommended Dex Methasone 4 mg IV every 6 hours for now. Triage Nursing notes reviewed. Vital Signs: reviewed Prior /Outside records reviewed: [none] Differential diagnosis: Hemorrhagic metastatic brain lesions, mass effect, electrolyte abnormality, anemia, other Diagnostics, as interpreted by me: 12 lead ECG: Sinus rhythm with PACs. Rate of 57. No ST elevation. No PVCs. Normal QTc Cardiac Monitoring ordered: Sinus rhythm in the 50s and 60s Medical decision rules: [none] Imaging studies: CT scan of the brain: 2 large hemorrhagic masses with significant surrounding edema and mass effect. Likely metastatic esophageal cancer per the radiologist. Procedures: none. Critical care: none. HPI: See MDM above. PAST MEDICAL HISTORY: See Below PAST SURGICAL HISTORY: See Below SOCIAL HISTORY: See Below HOME MEDICATIONS:See Below ALLERGIES: See Below VITALS: See Below PHYSICAL EXAMINATION: See MDM for positive findings otherwise unremarkable. CONSTITUTIONAL/VITAL SIGNS: Reviewed GENERAL:done as appropriate INTEGUMENTARY: done as appropriate HEAD: done as appropriate EYES: done as appropriate RESPIRATORY: done as appropriate CARDIOVASCULAR:done as appropriate GI/ABDOMEN:done as appropriate EXTREMITIES: done as appropriate NEUROLOGICAL: done as appropriate PSYCHIATRIC:done as appropriate MUSCULOSKELETAL:done as appropriate TRIAGE NURSING DOCUMENTATION REVIEWED. 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 HX OR CURRENT STATUS Varicose vein of leg MOSTLY RIGHT PER PT Weight loss Surgical History H/O esophagogastroduodenoscopy History of cataract surgery bilt History of colonoscopy Hx of tonsillectomy Hx of total hip arthroplasty PARTIAL REPLACEMENT SEP 2021 D/T HIP FX, LEFT S/P hernia repair Bilateral inguinal hernia repair S/P rotator cuff repair HX RIGHT S/P tooth extraction HX Status post Mohs surgery X1 Family History Father , 93yo Diabetes Colonic polyp No cancer Mother , 87yo Alzheimer disease Daughter No problems noted. Other No family history of adverse response to anesthesia Denies family history of Ovarian cancer Prostate cancer Myocardial infarction Breast cancer Lung cancer Colorectal cancer Stroke Social History Smoking Status: Never smoker Second Hand Exposure: No; Do You Dip or Chew Tobacco: No; Hx Alcohol Use: Yes Alcohol type: beer Alcohol Intake Frequency: 2-3 x/Week Hx Substance Use: No Preferred Language: Belarusian Communication Ability: Effective Visual Impairment: Limited Hearing Ability: Normal Medical Librarian Required: No Beliefs That Will Affect Care: None marital status: Current Living Situation: Spouse Current Living Situation Comment: lives in Independent living at [place] 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 How many Children do You have: 0 Feels Safe at Home: Yes Childhood Exposure to Second-Hand Smoke: No Diet: regular caffeine: Yes (coffee) during the past year weight has: decreased > 10 lbs Dental Care, Regularly: Yes Physical Activity Frequency: 1-2 Times per Week Physical Activity Frequency Comment: walking Seatbelt Use: always Sunscreen Use: Yes Do you think of yourself as: straight/heterosexual Assistive Devices: Cane and Glasses Allergies Allergies Allergy/AdvReac Type Severity Reaction Status Date / Time amlodipine AdvReac Intermediate SWELLING Verified 07/17/22 13:28 IN LEGS/PT NOT SURE Home Meds Home Medications Medication Instructions Recorded Confirmed diphenoxylate-atropine 2.5 1 tab PO QID PRN Diarrhea 05/07/22 07/19/22 mg-0.025 mg tablet (Lomotil) Previous Rx's Medication Instructions Recorded cholestyramine (with sugar) 4 gram 4 g PO TID #348.6 grams 05/25/22 oral powder (Questran) Results & Data (ED) Vital Signs Vital Signs - 24 hr 07/19/22 09:07 07/19/22 09:26 07/19/22 09:30 Temperature 36.8 C Temperature Source Temporal Artery Scan Pulse Rate 67 53 L 54 L Pulse Rate from SpO2 Sensor 60 Respiratory Rate 12 20 Respiratory Effort / Characteristics Non-Labored Respiratory Depth Normal Blood Pressure 145/64 H Blood Pressure Mean 91 Pulse Oximetry 95 96 Oxygen Delivery Method Room Air Room Air Sepsis Recent Fever Within 48 Hours No Sepsis New/Unexplained Change in Mental Status N/A Sepsis Action Taken by Nursing No Action Required 07/19/22 10:17 07/19/22 10:30 07/19/22 11:00 Temperature Temperature Source Pulse Rate 56 L 60 59 L Pulse Rate from SpO2 Sensor 56 L 56 L 61 Respiratory Rate 19 19 22 Respiratory Effort / Characteristics Respiratory Depth Blood Pressure 135/77 Blood Pressure Mean 96 Pulse Oximetry 100 99 98 Oxygen Delivery Method Room Air Sepsis Recent Fever Within 48 Hours Sepsis New/Unexplained Change in Mental Status Sepsis Action Taken by Nursing Laboratory Data 07/19/22 09:17 07/19/22 09:17 Lab Results 07/19/22 07/19/22 07/19/22 Range/Units 09:17 09:17 09:17 WBC 4.41 L (4.8-10.8) K/ul RBC 3.34 L (4.70-6.10) M/uL Hgb 11.0 L (14.0-18.0) g/dl Hct 32.9 L (42.0-52.0) % MCV 98.5 (80.0-100.0) fL MCH 32.9 (25.0-34.0) pg MCHC 33.4 (32.0-36.0) g/dL RDW Std Deviation 50.4 H (36.4-46.3) fL RDW Coeff of Stefan 13.9 (11.5-14.5) % Plt Count 156 (130-400) K/uL MPV 9.9 (9.4-12.4) fL Immature Gran % (Auto) 0.2 % Neut % (Auto) 62.8 % Lymph % (Auto) 25.4 % Cochran % (Auto) 8.6 % Eos % (Auto) 2.3 % Baso % (Auto) 0.7 % Neut # (Auto) 2.77 (1.40-6.50) K/uL Lymph # (Auto) 1.12 L (1.2-3.4) K/uL Cochran # (Auto) 0.38 (0.11-0.59) K/uL Eos # (Auto) 0.10 (0-0.50) K/uL Baso # (Auto) 0.03 (0-0.2) K/uL Immature Gran # (Auto) 0.01 (0.01-0.20) K/uL PT 11.8 (9.0-12.0) Seconds INR 1.1 (0.9-1.1) APTT 28.0 (21.0-31.0) Seconds PTT Ratio 1.0 Sodium 138 (136-145) mmol/L Potassium 4.2 (3.5-5.1) mmol/L Chloride 106 (98-107) mmol/L Carbon Dioxide 28 (21-32) mmol/L Anion Gap 4 (3-11) BUN 25 H (6-23) mg/dl Creatinine 1.24 (0.6-1.4) mg/dl Est Cr Clr Drug Dosing 37.2 ml/min Est GFR ( Amer) 61.5 ml/min Est GFR (Non-Af Amer) 53.1 ml/min BUN/Creatinine Ratio 20.2 H (10-20) Glucose 101 H (70-99(Fasting)) mg/dl Calcium 9.2 (8.6-10.3) mg/dl Total Bilirubin 0.6 (0.2-1.0) mg/dl AST 19 (13-39) U/L ALT 21 (7-52) U/L Alkaline Phosphatase 34 (34-104) U/L Total Protein 6.7 (6.0-8.3) gm/dl Albumin 3.9 (3.4-5.0) gm/dl Globulin 2.8 (2.5-4.0) gm/dl Albumin/Globulin Ratio 1.4 (0.9-2) Lipase 188 H (11-82) U/L SARS-CoV-2, RNA, NAAT (NEGATIVE) 07/19/22 Range/Units 09:41 WBC (4.8-10.8) K/ul RBC (4.70-6.10) M/uL Hgb (14.0-18.0) g/dl Hct (42.0-52.0) % MCV (80.0-100.0) fL MCH (25.0-34.0) pg MCHC (32.0-36.0) g/dL RDW Std Deviation (36.4-46.3) fL RDW Coeff of Stefan (11.5-14.5) % Plt Count (130-400) K/uL MPV (9.4-12.4) fL Immature Gran % (Auto) % Neut % (Auto) % Lymph % (Auto) % Cochran % (Auto) % Eos % (Auto) % Baso % (Auto) % Neut # (Auto) (1.40-6.50) K/uL Lymph # (Auto) (1.2-3.4) K/uL Cochran # (Auto) (0.11-0.59) K/uL Eos # (Auto) (0-0.50) K/uL Baso # (Auto) (0-0.2) K/uL Immature Gran # (Auto) (0.01-0.20) K/uL PT (9.0-12.0) Seconds INR (0.9-1.1) APTT (21.0-31.0) Seconds PTT Ratio Sodium (136-145) mmol/L Potassium (3.5-5.1) mmol/L Chloride (98-107) mmol/L Carbon Dioxide (21-32) mmol/L Anion Gap (3-11) BUN (6-23) mg/dl Creatinine (0.6-1.4) mg/dl Est Cr Clr Drug Dosing ml/min Est GFR ( Amer) ml/min Est GFR (Non-Af Amer) ml/min BUN/Creatinine Ratio (10-20) Glucose (70-99(Fasting)) mg/dl Calcium (8.6-10.3) mg/dl Total Bilirubin (0.2-1.0) mg/dl AST (13-39) U/L ALT (7-52) U/L Alkaline Phosphatase (34-104) U/L Total Protein (6.0-8.3) gm/dl Albumin (3.4-5.0) gm/dl Globulin (2.5-4.0) gm/dl Albumin/Globulin Ratio (0.9-2) Lipase (11-82) U/L SARS-CoV-2, RNA, NAAT NEGATIVE (NEGATIVE) Administered Medications Discontinued Medications Dexamethasone Sodium Phosphate (DexamethasonePf 10 Mg/Ml Vial) 4 mg IV NOW ONE Stop: 07/19/22 09:36 Last Admin: 07/19/22 09:43 Dose: 4 mg Documented By: [facility] Imaging Data Radiologist's Impression: Chest X-Ray 07/19/22 09:35 XR chest 1V portable HISTORY: Chest pain, nonspecific COMPARISON: Chest CT 07/13/2022. Chest x-ray 09/25/2021. FINDINGS: No pneumothorax. No pleural effusions. The cardiac silhouette is normal in size. No new focal lung consolidations to suggest a pneumonia. No evidence for pulmonary edema. Severe gaseous distention of the colon is again noted. IMPRESSION: 1. No acute process within the chest. 2. Severe gaseous distention of the colon is again noted. ACT 112: Negative or not required by law. Electronically signed by: Emil Wong M.D. 07/19/2022 10:15 AM Discharge Plan Visit Data Chief Complaint: Abnormal Labs/Diagnostic Testing Stated Complaint: ABNORMAL CT RESULTS ED Provider: Alejandro Hraper Discharge Problem: Bleeding in brain, Metastatic cancer to brain Patient Disposition: Admitted As Inpatient Forms Stand Alone Forms: [facility] Prescriptions Prescriptions: No Action cholestyramine (with sugar) [Questran] 4 gram powder 4 g PO TID Qty: 348.6 4RF Rx Instructions: administer w/meal; avoid other meds within 1hr before or 4-6hr after dose diphenoxylate-atropine [Lomotil] 2.5-0.025 mg tablet 1 tab PO QID PRN (Reason: Diarrhea) Referrals Referrals: Adalberto Salcido DO [Primary Care Provider] -
[2022-07-19 10:09] LABS: Basophils # (auto) 0.03 K/uL (0-0.2); Basophils % (auto) 0.7 %; Eosinophils % (auto) 2.3 %; Hematocrit (blood only) 32.9 % (42.0-52.0); Immature Granulocytes # (auto) 0.01 K/uL (0.01-0.20); Immature Granulocytes % (auto) 0.2 %; Lymphocytes # (auto) 1.12 K/uL (1.2-3.4); Lymphocytes % (auto) 25.4 %; Mean Corpuscular Hemoglobin 32.9 pg (25.0-34.0); Mean Corpuscular Hgb Conc 33.4 g/dL (32.0-36.0); Mean Corpuscular Volume 98.5 fL (80.0-100.0); Mean Platelet Volume 9.9 fL (9.4-12.4); Monocytes # (auto) 0.38 K/uL (0.11-0.59); Monocytes % (auto) 8.6 %; Neutrophils # (auto) 2.77 K/uL (1.40-6.50); Neutrophils % (auto) 62.8 %; Platelet Count 156 K/uL (130-400); RDW Coefficient of Variation 13.9 % (11.5-14.5); RDW Standard Deviation 50.4 fL (36.4-46.3); Red Blood Count 3.34 M/uL (4.70-6.10); White Blood Count 4.41 K/ul (4.8-10.8)
--- NOTE | 2022-07-19 10:16 | XRay Report ---
XR chest 1V portable HISTORY: Chest pain, nonspecific COMPARISON: Chest CT 07/13/2022. Chest x-ray 09/25/2021. FINDINGS: No pneumothorax. No pleural effusions. The cardiac silhouette is normal in size. No new foc al lung consolidations to suggest a pneumonia. No evidence for pulmonary edema. Severe gaseous disten tion of the colon is again noted. IMPRESSION: 1. No acute process within the chest. 2. Severe gaseous distention of the colon is again noted. ACT 112: Negative or not required by law. Electronically signed by: Emil Wong M.D. 07/19/2022 10:15 AM
[2022-07-19 10:28] LABS: Albumin Globulin Ratio 1.4 (0.9-2); Albumin Level 3.9 gm/dl (3.4-5.0); BUN Creatinine Ratio 20.2 (10-20); Bilirubin,Total 0.6 mg/dl (0.2-1.0); Calcium 9.2 mg/dl (8.6-10.3); Creatinine Clr Calc Pharmacy 37.2 ml/min; Est GFR (African American) 61.5 ml/min; Est GFR (Non-African American) 53.1 ml/min; Globulin 2.8 gm/dl (2.5-4.0); Potassium 4.2 mmol/L (3.5-5.1); Total Protein 6.7 gm/dl (6.0-8.3)
[2022-07-19 10:37] LABS: INR 1.1 (0.9-1.1); Prothrombin Time 11.8 Seconds (9.0-12.0)
--- NOTE | 2022-07-19 10:52 | History & Physical Report ---
Date of Service July 19, 2022 Assessment & Plan (1) Metastatic cancer to brain: Plan: -Admit to he PCU on tele -Currently stable and without focal neuro defects -CT of the brain today showing 2 large hemorrhagic masses as detailed above with significant surrounding edema and mass effect with trace subdural extension of blood along the right convexity adjacent to the hemorrhagic lesion. -[facility] contacted by both ED and Hospital Med providers, after f urther discussions with family they would only want conservative treatment at this time -Last does of Eliquis was 48 hours ago, continue to hold all anticoagulation -Continue 4 mg IV dexamethasone q6h, will add prn labetalol for systolic BP>160 mmhg -Will obtain MRI of the brain WO con for further evaluation as requested by radiation oncology -Will repeat CT of the head wo con tomorrow morning for monitoring -Q2h neuro checks, seizure precautions, fall precautions -Oncology and radiation oncology consulted -BL SCD's for DVT PPX, can't use chemical PPX -AM CBC, CMP, mag, PT/INR -Regular diet (2) A-fib: Plan: -ECG today shows possible new onset afib with slow ventricular, which would be new for him -HR currently well controlled -Can't be on anticoagulation with the brain mets today -Will repeat a ECG on admission as the first was poor quality -Continue to monitor on tele (3) Memory change: Plan: -Likely due to new brain mets -Continue monitoring as described in brain metastases plan (4) Hypertension: Plan: -Stable -Continue prn labetalol for systolic BP>160 per Neurosurgery recommendations (5) GERD (gastroesophageal reflux disease): Plan: -Daily Protonix while on steroids (6) Esophageal adenocarcinoma: Plan: -Oncology consult placed, no currently on treatement Plan The patient was discussed with Dr. Licona at the time of the admission History of Present Illness Chief Complaint: Abnormal CT results Primary Care Provider: DO Maximiliano Hernandes is a 86 year old male with a PMH significant for stage 3B esophageal adenocarcinoma (Follows with Dr. Gloria) S/P Chemo and radiation, previous PE S/P 6 months of Eliquis therapy, HTN and GERD who presented to the [facility] ED on 07/19/[address] of the head earlier today. The patient had completed chemotherapy and radiation last year for his adenocarcinoma of the esophagus and had been in remission. Over the past 6 weeks his states that he has had progressive memory issues, the patient denies any other neurologic symptoms. They saw his PCP yesterday for the ongoing memory issues on 07/17 who stopped his Eliquis at that time as he had completed 6 months of treatment for PE. The saw Dr. Gloria yesterday who ordered the outpatient CT head obtained today which was read as "1. There are 2 large hemorrhagic masses as detailed above with significant surrounding edema and mass effect. This likely represents metastatic esophageal cancer given the patient's history. 2. There is trace subdural extension of blood along the right convexity adjacent to the hemorrhagic lesion. 3. There is no evidence of acute territorial ischemia by CT criteria. No midline shift is seen.". Dr. Gloria sent the patient to the ED due to these results. In the ED the patient's vitals were stable. He was without major lab abnormalities. [facility] was consulted to determine if transfer was need. The patient and his family are not interested in surgical intervention for possible metastases removal and would not want intervention in the event that he would ex perience a large intracranial hemorrhage. At that time the Neurosurgeon (Dr. Schmidt) recommended consultation for possible radiation therapy in addition to IV steroid therapy. Dr. Gloria recommended the patient be admitted and started on 4 mg IV dexamethasone q6h. At the time of the exam the patient was sitting in bed in no acute distress with his and daughter sitting bedside. They confirmed the 6 week hx of progressive memory issues, otherwise his only complaints have been chronic diarrhea, which has been controlled recently on Lomotil. I had another long discussion with them to confirm his wishes. He confirms that he does not want surgery to try and remove or reduce the brain metastases and would not want to be transferred to a tertiary care center in the event of larger intracranial bleed. If he were to clinically decline he would want us to transition him to comfort measures, his family is in agreement. He also confirms that he is a DNR/DNI, his and daughter would make medical decisions for him if he could not make them himself. They are interested in radiation therapy and conservative medical management at this time. He currently denies fever, chills, headache, changes in vision, hearing, taste, and smell, chest pain, sob, abd pain, nausea, vomiting, diarrhea, dysuria, hematuria, melena, LE swelling and recent trauma. I called and spoke with Dr. Schmidt to confirm the conservative treatment plan, appreciate his help. He agrees with the 6 mg IV dexamethasone q6h, recommends keeping the patient's systolic BP below 160 mmhg, and agrees with the radiation oncology consult. We can get a repeat CT of the head tomorrow morning or sooner if any clinical status changes. Please refer to Dr. Licona's attestation for any changes to the treatment plan Allergies Allergy/AdvReac Type Severity Reaction Status Date / Time amlodipine AdvReac Intermediate SWELLING Verified 07/17/22 13:28 IN LEGS/PT NOT SURE Home Medications Medication Instructions Recorded Confirmed Type diphenoxylate-atropine 2.5 1 tab PO QID PRN Diarrhea 05/07/22 07/19/22 History mg-0.025 mg tablet (Lomotil) cholestyramine (with sugar) 4 gram 4 g PO TID #348.6 grams 05/25/22 07/19/22 Rx oral powder (Questran) Past Med/Surg History Medical History RAFY (acute kidney injury) Anemia PT DENIES Chronic diarrhea REASON FOR UPCOMING COLONOSCOPY Dysphagia MUCH BETTER 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) Femoral neck fracture HX FALL SEP 2021, HIP FX / SX INTERVENTION Hip fracture History of colon polyps History of high blood pressure History of nonmelanoma skin cancer Ileus CHRONIC Localized swelling of both lower legs PROBLEM STARTED AFTER HIP FX IN SEP 2021, RIGHT LEG WORSE THAN LEFT - NO PAIN OR REDNESS - NO CHANGE FROM BASELINE Loss of appetite Low blood potassium BORDERLINE Low vitamin D level ? HX OR CURRENT STATUS Varicose vein of leg MOSTLY RIGHT PER PT Weight loss Surgical History H/O esophagogastroduodenoscopy History of cataract surgery bilt History of colonoscopy Hx of tonsillectomy Hx of total hip arthroplasty PARTIAL REPLACEMENT SEP 2021 D/T HIP FX, LEFT S/P hernia repair Bilateral inguinal hernia repair S/P rotator cuff repair HX RIGHT S/P tooth extraction HX Status post Mohs surgery X1 Family History Father , 93yo Diabetes Colonic polyp No cancer Mother , 87yo Alzheimer disease Daughter No problems noted. Other No family history of adverse response to anesthesia Denies family history of Ovarian cancer Prostate cancer Myocardial infarction Breast cancer Lung cancer Colorectal cancer Stroke Social History Smoking Status: Never smoker Second Hand Exposure: No; Do You Dip or Chew Tobacco: No; Hx Alcohol Use: Yes Alcohol type: wine Alcohol Intake Frequency: 2-3 x/Week Hx Substance Use: No Preferred Language: [place] Communication Ability: Effective Visual Impairment: Limited Hearing Ability: Normal Before School Required: No Beliefs That Will Affect Care: None marital status: Current Living Situation: Spouse Current Living Situation Comment: [facility] 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 How many Children do You have: 0 Feels Safe at Home: Yes Childhood Exposure to Second-Hand Smoke: No Diet: regular caffeine: Yes (coffee) during the past year weight has: decreased > 10 lbs Dental Care, Regularly: Yes Physical Activity Frequency: 1-2 Times per Week Physical Activity Frequency Comment: walking Seatbelt Use: always Sunscreen Use: Yes Do you think of yourself as: straight/heterosexual Assistive Devices: Cane, Glasses and Walker Physical Exam Physical Exam: Physical Exam: General: In no acute distress, stated age, non-toxic appearing HEENT: Normocephalic, atraumatic, no scleral icterus, pupils around round, symmetrical, and reactive to light, moist mucus membranes, trachea midline, no thyromegaly Chest/Pulm: No respiratory distress, symmetrical chest expansion, clear breath sounds throughout Cardiac: RRR, no murmurs noted Abdomen: Negative for ascites and bruising, normoactive bowel sounds, soft, non-tender to palpation throughout Musculoskeletal: Symmetrical and without signs of acute trauma, upper and lower extremities with full ROM, no atrophy, spasticity, or flaccidity Extremities: Radial, dorsalis pedis, and posterior tibial pulses are intact and symmetrical, no edema noted in the BL LE's Skin: Warm, dry, no rashes , lesions, or scars noted Neuro: Alert and oriented to person, place, month, year, no focal defects, CN II-XII tested and intact, finger to nose test negative, no tremors noted Psych: No acute distress, calm and cooperative during the exam Results & Data Results & Data Vital Signs (Past 12 Hours) Vital Signs Temp Pulse Resp BP Pulse Ox O2 Del Method 07/19/22 10:17 56 L 19 135/77 100 Room Air 07/19/22 09:30 54 L 20 96 Room Air 07/19/22 09:26 53 L 07/19/22 09:07 36.8 C 67 12 145/64 H 95 Room Air Laboratory Results Chest X-Ray 07/19/22 09:35 XR chest 1V portable HISTORY: Chest pain, nonspecific COMPARISON: Chest CT 07/13/2022. Chest x-ray 09/25/2021. FINDINGS: No pneumothorax. No pleural effusions. The cardiac silhouette is normal in size. No new focal lung consolidations to suggest a pneumonia. No evidence for pulmonary edema. Severe gaseous distention of the colon is again noted. IMPRESSION: 1. No acute process within the chest. 2. Severe gaseous distention of the colon is again noted. ACT 112: Negative or not required by law. Electronically signed by: Emil Wong M.D. 07/19/2022 10:15 AM Diagnostic Findings Chest X-Ray 07/19/22 09:35 XR chest 1V portable HISTORY: Chest pain, nonspecific COMPARISON: Chest CT 07/13/2022. Chest x-ray 09/25/2021. FINDINGS: No pneumothorax. No pleural effusions. The cardiac silhouette is normal in size. No new focal lung consolidations to suggest a pneumonia. No evidence for pulmonary edema. Severe gaseous distention of the colon is again noted. IMPRESSION: 1. No acute process within the chest. 2. Severe gaseous distention of the colon is again noted. ACT 112: Negative or not required by law. Electronically signed by: Emil Wong M.D. 07/19/2022 10:15 AM [phone] Report Patient:MAXIMILIANO OBREGON Admit Date:07/19/22 MR#:[id number] Address1:[address] [place] [address] [id number] Acct ID:[id number] Address2:[facility] Date:1935 [facility] Zip:[place] [address] Age:86 Location:CT Sex:M Room/Bed: Att Phy:Adalberto Salcido DO Diagnosis:R41.3 - Other amnesia Kitty Phy:Adalberto Salcido DO Service Date:07/19/22 Fam Phy: Interpreting Phy:Daniel Centeno MDAdmit Phy: Ordering Phy:Adalberto Salcido DO cc: ~ CT SCAN OF THE BRAIN WITHOUT IV CONTRAST CLINICAL HISTORY: Amnesia. History of esophageal cancer. COMPARISON STUDY: No priors. TECHNIQUE: Unenhanced axial CT scan of the brain is performed from the vertex to the skull base. A dose lowering technique was utilized adhering to the principles of ALARA. CT DOSE: 625.80 mGy.cm FINDINGS: Brain parenchyma: There are 2 large hemorrhagic lesions identified with significant surrounding edema. A lesion centered in the right temporal lobe on image #14 measures approximately 5 x 4 cm and a lesion centered in the left occipital lobe measures approximately 4 x 3.5 cm. There is effacement of overlying cortical sulci. No significant midline shift is seen. There is likely trace subdural extension of blood along the right convexity seen on image #12. This measures up to 4 mm in thickness. There is age-related involutional change noting mild subcortical and periventricular microangiopathic disease. There is no evidence of acute territorial ischemia by CT criteria. Ventricles, sulci, cisterns: Prominent secondary to involutional change. The posterior horns of the lateral ventricles are effaced. No intraventricular blood is identified. Intracranial vasculature: There is atherosclerotic calcification of the cavernous carotid arteries. Calvarium: Unremarkable. Sinuses and mastoids: The visualized paranasal sinuses are clear. The mastoid air cells are well pneumatized. Orbits: The bony orbits are grossly intact. There are bilateral ocular lens implants. IMPRESSION: 1. There are 2 large hemorrhagic masses as detailed above with significant surrounding edema and mass effect. This likely represents metastatic esophageal cancer given the patient's history. 2. There is trace subdural extension of blood along the right convexity adjacent to the hemorrhagic lesion. 3. There is no evidence of acute territorial ischemia by CT criteria. No midline shift is seen. ECG Additional Comments: Atrial fibrillation with slow ventricular response Minimal voltage criteria for LVH, may be normal variant ( R in aVL ) Inferior infarct , age undetermined Abnormal ECG When compared with ECG of 21-DEC-2021 17:21, Atrial fibrillation has replaced Sinus rhythm Vent. rate has decreased BY 29 BPM Inferior infarct is now Present T wave inversion now evident in Inferior leads Nonspecific T wave abnormality no longer evident in Lateral leads Code Status & VTE Plan Code Status DN/DNI VTE Prophylaxis Plan VTE Prophylaxis will be ordered: Yes Supervising Physician Co-Signing Physician Notes I personally saw and examined the patient. I verified all hubbard points and agree with Alejandro Aponte PA-C with the following exceptions and/or additions: 86 year old male with esophageal adenocarcinoma presents to the ER with worsening memory issues and outpatient CT head concerning for metastatic disease with 2 large hemorrhagic masses. No extremity weakness or change in sensation. No change in speech, vision or hearing. On issue has been with his memory and confusion. O/E Alert & Ox3 (slow to answer questions and defaults to his mostly), RRR, no murmurs, Chest CTAB, Abdo SNT, no facial droop, PERRL, no pronator drift A/P Metastatic disease to brain - having very few symptoms given the size of the masses, we discussed the poor prognosis of this with his and daughter present. He wishes to undergo radiation therapy if this is and option but if he was to get worse he declines any surgical intervention and wishes to just be made comfortable at that time. We discussed not having neurosurgery back up at this hospital and given his wish to not undergo surgery for any circumstance he is ok to stay here. Confirmed with his his last dose of Eliquis was > 48 hours ago. Decadron 4mg IV q6h to reduce edema. GI prophylaxis with pantoprazole. Will control BP with hydralazine 5mg IV as needed for 2 consistent readings sBP > 160 1 hour apart. Consult oncology and radiation oncology for ongoing management. Tried to re-examine in evening but patient is much more agitated and confused and not able to complete full neurological examination at that time. SCDs removed due to significant falls risk and unlikely of any benefit. PG Care Time/CCT Total # of Minutes Spent Total Time Spent with Patient: Total time spent is greater than 50% in coordination of care (as documented) at patient's floor/unit and/or counseling patient: [place] [address] INT INP/OBS CARE 3/75MIN Patient Type Established Medical Decision Making High Complexity Diagnoses Metastatic cancer to brain C79.31 A-fib I48.91 Memory change R41.3 Hypertension I10 GERD (gastroesophageal reflux disease) K21.9 Esophageal adenocarcinoma C15.9
[2022-07-19] MEDS ORDERED: PHARMACIST DISCHARGE MED REC CONSULT PRN (10:54)
[2022-07-19] MEDS ORDERED: GADOBUTROL 65ML VIAL IV ONE (11:51)
[2022-07-19] MEDS ORDERED: LABETALOL HCL IV 5 MG/ML 20ML IV PRN (12:00)
[2022-07-19] MEDS ORDERED: PANTOprazole 40 MG TAB PO STA (12:16)
[2022-07-19] MEDS ORDERED: ACETAMINOPHEN 325 MG TAB PO PRN (12:29)
--- NOTE | 2022-07-19 12:33 | Magnetic Resonance Report ---
MRI OF THE BRAIN COMBO CLINICAL HISTORY: Intracranial metastatic disease. Esophageal cancer. COMPARISON STUDY: CT of the brain performed the same day 07/19/2022. TECHNIQUE: MRI of the brain was performed utilizing various T1 and T2-weighted sequences in the axial , sagittal, and coronal planes. Contrast-enhanced sequences were acquired following the administratio n of 6 cc of Gadavist. FINDINGS: Brain parenchyma: Again seen are large hemorrhagic intracranial mass lesions. These show T1 hyperinte nsity, T2 hypointensity, and postcontrast enhancement. A lesion centered in the right temporal lobe m easures 4.4 x 6.0 x 4.5 cm and a lesion centered in the left occipital lobe measures 3.8 x 4.3 x 4.3 cm. There is significant surrounding edema with effacement of the lateral ventricles and the overlyin g cortical sulci. Both lesions show extra-axial extension along the right convexity and along the lef t tentorium. No extra-axial hemorrhage is clearly identified. No midline shift is seen. There is no r estricted diffusion typical for acute ischemia. The cerebellar tonsils are normal in configuration. There is is age-related involutional change note mild microangiopathic disease. Ventricles, sulci, and cisterns: Prominent secondary to involutional change. Pituitary and sella: Unremarkable. Intracranial vasculature: Normal flow voids are maintained at the skull base. Orbits: The bony orbits are grossly intact. Orbital contents are normal in appearance note bilateral ocular lens implants. Sinuses and mastoids: Clear. Calvarium: Unremarkable. Cervical cord: Partially visualized cervical spinal cord is normal in morphology and signal intensity . IMPRESSION: 1. Unchanged appearance of large hemorrhagic intracranial mass lesions with significant mass effect/s urrounding edema. This likely represents metastatic esophageal cancer given the patient's history. 2. There is extra-axial extension of these mass lesions along the right convexity and the left tentor ium. No extra-axial blood is seen. 3. There is no midline shift, tonsillar herniation, or evidence of acute ischemia. ACT 112: Negative or not required by law. Electronically signed by: Daniel Centeno M.D. 07/19/2022 12:32 PM
--- NOTE | 2022-07-19 12:41 | Oncology Consultation ---
Date of Consultation July 19, 2022 Assessment & Plan (1) Esophageal adenocarcinoma: (2) Metastatic cancer to brain: Plan -Esophageal recommend dexamethasone 4 mg IV every 6 hours for significant vasogenic edema -Radiation oncology evaluation for palliative radiation therapy to the brain -I will discuss with the patient's family regarding systemic treatment options. However in the setting of significant brain metastasis, would recommend palliative care involvement to discuss goals of care History of Present Illness Reason for Consultation: Esophageal cancer with metastasis Attending Physician: Neymar Licona MD History of Present Illness Mr. Ortiz is a pleasant 86-year-old gentleman known to me at [facility] with history of stage IIIb esophageal cancer for which he is s/p chemoradiation treatment with carboplatin/paclitaxel completed on 08/17/2021. Patient has since been on observation. He presented to his PCP several days ago with complaining of mental status changes over the past 4 to 6 weeks. At that time, PCP recommended obtaining CT head. Patient was evaluated by me yesterday in clinic and at that time I recommended he discontinue Eliquis which she had been on for history of subsegmental PE diagnosed in December,. CT head which was obtained today and revealed 2 large hemorrhagic masses with significant surrounding edema and mass effect, trace subdural extension of blood within right convexity adjacent to hemorrhagic lesion. Allergies Allergy/AdvReac Type Severity Reaction Status Date / Time amlodipine AdvReac Intermediate SWELLING Verified 07/17/22 13:28 IN LEGS/PT NOT SURE Home Medications Medication Instructions Recorded Confirmed Type diphenoxylate-atropine 2.5 1 tab PO QID PRN Diarrhea 05/07/22 07/19/22 History mg-0.025 mg tablet (Lomotil) cholestyramine (with sugar) 4 gram 4 g PO TID #348.6 grams 05/25/22 07/19/22 Rx oral powder (Questran) Patient History Medical History RAFY (acute kidney injury) Anemia PT DENIES Chronic diarrhea REASON FOR UPCOMING COLONOSCOPY Dysphagia MUCH BETTER 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) Femoral neck fracture HX FALL SEP 2021, HIP FX / SX INTERVENTION Hip fracture History of colon polyps History of high blood pressure History of nonmelanoma skin cancer Ileus CHRONIC Localized swelling of both lower legs PROBLEM STARTED AFTER HIP FX IN SEP 2021, RIGHT LEG WORSE THAN LEFT - NO PAIN OR REDNESS - NO CHANGE FROM BASELINE Loss of appetite Low blood potassium BORDERLINE Low vitamin D level ? HX OR CURRENT STATUS Varicose vein of leg MOSTLY RIGHT PER PT Weight loss Surgical History H/O esophagogastroduodenoscopy History of cataract surgery bilt History of colonoscopy Hx of tonsillectomy Hx of total hip arthroplasty PARTIAL REPLACEMENT SEP 2021 D/T HIP FX, LEFT S/P hernia repair Bilateral inguinal hernia repair S/P rotator cuff repair HX RIGHT S/P tooth extraction HX Status post Mohs surgery X1 Family History Father , 93yo Diabetes Colonic polyp No cancer Mother , 87yo Alzheimer disease Daughter No problems noted. Other No family history of adverse response to anesthesia Denies family history of Ovarian cancer Prostate cancer Myocardial infarction Breast cancer Lung cancer Colorectal cancer Stroke Social History Smoking Status: Never smoker Second Hand Exposure: No; Do You Dip or Chew Tobacco: No; Tobacco Cessation Education Requested by Patient: No Hx Alcohol Use: Yes Alcohol type: wine Alcohol Intake Frequency: 2-3 x/Week Hx Substance Use: No Preferred Language: Citizen Of [place] Communication Ability: Effective Visual Impairment: Limited Hearing Ability: Normal Medicine Technologist Required: No Beliefs That Will Affect Care: None marital status: Current Living Situation: Spouse Current Living Situation Comment: [facility] 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 How many Children do You have: 0 Feels Safe at Home: Yes Safety Concerns: Feels Safe At This Time Childhood Exposure to Second-Hand Smoke: No Diet: regular caffeine: Yes (coffee) during the past year weight has: decreased > 10 lbs Dental Care, Regularly: Yes Physical Activity Frequency: 1-2 Times per Week Physical Activity Frequency Comment: walking Seatbelt Use: always Sunscreen Use: Yes Do you think of yourself as: straight/heterosexual Assistive Devices: Cane, Glasses and Walker Results & Data Vital Signs (Past 12 Hours) Vital Signs Temp Pulse Resp BP Pulse Ox O2 Del Method 07/19/22 11:00 59 L 22 98 07/19/22 10:30 60 19 99 07/19/22 10:17 56 L 19 135/77 100 Room Air 07/19/22 09:30 54 L 20 96 Room Air 07/19/22 09:26 53 L 07/19/22 09:07 36.8 C 67 12 145/64 H 95 Room Air
--- NOTE | 2022-07-19 13:26 | Radiation OncologyConsultation ---
Date of Consultation July 19, 2022 Assessment & Plan (1) Metastatic cancer to brain: Assessment: Mr. 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 Most recently the patient was noted to have a significant change in memory and he was brought in for evaluation to the emergency department. CT scan showed 2 hemorrhagic brain lesions that were confirmed on MRI with no additional lesions noted. He denied headache or other neurologic changes. Treatment Options: 1. Surgical excision. Neurosurgery from [place] contacted and patient and family do not wish to consider surgery. 2. SBRT/hypofractionation to the 2 lesions. 3. Palliative whole brain radiation. Recommendations: SBRT/hypofractionation to the individual lesions. Plan: 1. The patient has agreed to a course of stereotactic/hypofractionated radiation to the 2 individual lesions. 2. Consent form will be obtained tomorrow prior to the simulation. 3. Patient will be simulated with an mask for immobilization and IV. 4. We will work on the treatment plan with intent to start treatment next week. 5. Patient will receive 5 treatments delivered every other day starting next week. Rationale/Explanation of Treatment: I met with the patient his and daughter and reviewed the treatment options. Neurosurgery from [place] has been contacted and the family decided to not consider any form of surgery. I met with the patient, his and daughter and reviewed with them the treatment options as listed above. I then reviewed with them the specifics of a SBRT/hypofractionated course of radiation targeted to the 2 individual lesions. I reviewed the CT simulation process with creation of a mask for immobilization and use of IV contrast. I discussed potential risks and side effects of the treatment and a consent form will be obtained tomorrow prior to simulation. They have agreed to proceed and will be brought down tomorrow with plan to initiate palliative radiation next week. They understand that if the patient remains hospitalized we could treat him as an inpatient however if he is discharged we would make arrangements to bring him in as an outpatient. In general, we did discuss treatment recommendations for the management of metastatic disease to the brain. I did explain to the patient that most often biopsies are not performed given the patient's previous history of cancer unless the patient plans to undergo surgical resection. I discussed treatment options including surgical resection and radiation therapy. The patient defer surgical intervention and would prefer to undergo radiation therapy. I then discussed the advantages and disadvantages of both whole brain radiation therapy and stereotactic radiosurgery. I did discuss the benefits of whole brain radiation therapy with respect to overall intracranial control and the most significant disadvantages including long-term neurocognitive side effects; we then focused or conversation and stereotactic radiosurgery and explained the benefits which included minimizing radiation therapy to the normal brain and potentially reducing long-term side effects from radiation therapy as well as the disadvantages including the inability to potentially prevent further lesions from developing in the brain. I did explain that after the completion of stereotactic radiosurgery we would follow the patient with an MRI of the brain every 2-3 months which would enable us to potentially diagnose new lesions early while they are still asymptomatic and potentially treatable with stereotactic radiosurgery. I explained the indications, alternatives, benefits, risks and side effects of external beam radiation therapy to the brain. I explain the most common side effects including but not limited to skin erythema, skin break down, hair loss, radiation necrosis, fatigue, short-term memory loss, decreased neurocognitive performance, cerebral edema, hearing loss, damage to cochlea structures, seizures, loss of sensory and or motor function. I explained the treatment planning process and what to expect before during and after treatment. The patient is and daughter had multiple questions which were answered to their full satisfaction. Thank you for allowing us to participate in the care of this patient. This chart was completed in part utilizing [employer] Speech Voice Recognition software. Grammatical errors, random word insertions, pronoun errors and incomplete sentences are occasional consequence of this system due to software limitations, ambient noise and hardware issues. Any formal questions or concerns about the content, text or information contained within the body of this dictation should be directly addressed to the provider for clarification. Júnior Lira MD Department of Radiation Oncology [facility] History of Present Illness Reason for Consultation: Change in memory with abnormal CT scan of the brain Attending Physician: Neymar Licona MD History of Present Illness 05/2021. Patient presents with 15 to 20 pound weight loss since February 2021 associated with dysphagia. 05/23/2021. Upper EGD by Dr. Smith. Findings include a medium size, ulcerating mass with stigmata of recent bleeding was found in the distal esophagus. The mass was partially obstructing and partially circumferential. Esophageal mass biopsy positive for moderately differentiated adenocarcinoma. HER2 FISH positive. PD-L1 expression present. 06/08/2021. Upper EUS by Dr. Childers. Impression: A mass was found in the lower third of the esophagus previously biopsied and consistent with adenocarcinoma. [id number]. 06/12/2021. PET/CT. IMPRESSION: 1. Marked FDG uptake within the distal esophageal primary malignancy. 2. Mild to moderate FDG uptake within several nonenlarged partially calcified precarinal and subcarinal lymph nodes, as described above. Given calcifications, these nodes are probably benign and favor a granulomatous process. Superimposed metastatic disease cannot be completely excluded but is considered unlikely. A follow-up chest CT could be obtained in 6 months to ensure stability. 3. 2.5 x 1.4 cm FDG avid airspace opacity within the lingula. This favors a small focus of pneumonia. The appearance is not typical for metastatic disease. Primary lung malignancy is within the differential but considered unlikely. A follow-up chest CT in one month is recommended. 06/14/2021. CT of abdomen/pelvis. IMPRESSION: 1. No acute infectious or inflammatory findings are identified in the abdomen or pelvis. 2. Moderate constipation. 3. A small focus of consolidation in the lingula is unchanged from the 06/12/2021 PET examination examination and favors pneumonia/atelectasis. Attention at follow-up is required. 4. There is a small hiatal hernia. Wall thickening at/above the gastroesophageal junction is unchanged and consistent with the site of known esophageal cancer. 5. There is no evidence of metastatic disease in the abdomen or pelvis. 6. Additional findings as above. 06/15/2021. Medical oncology consultation with Dr. Gloria. Recommendation is for chemotherapy with radiation therapy followed by potential surgical resection. Radiation oncology referral placed. Surgery referral placed and patient to see surgeon at [facility]. 06/10/2022. He was to continue regular follow-up with medical oncology. He has had continued issues with diarrhea. Frustrating differential still has been checked on 3 occasions. Each time the study was negative. He has abdominal bloating and gas. He can have discomfort and pain with the gas. Currently he is on Questran and Lomotil. He uses Beano and fiber. He was having no issues with swallowing. He eats a regular diet. There is been no epigastric pain. No nausea or vomiting. He has had studies in follow-up and was referred to gastroenterology due to the ongoing diarrhea. 07/19/2022. Patient had previously been treated with chemoradiation for stage IIIb adenocarcinoma of the esophagus. He was noted to have a significant change in his memory. The patient was seen in the emergency department and a CT scan of the brain was performed. This showed 2 large hemorrhagic masses without significant surrounding edema and mass effect with trace subdural extension of blood. [place] neurosurgery was contacted however the family decided they wish to have conservative treatment only. Patient was on anticoagulants (Eliquis) with his last dose 2 days ago. He was started on dexamethasone with some improvement in memory. 07/19/2022. Patient undergoes MRI of the brain. This again noted large hemorrhagic intracranial mass lesions with 1 centered in the right temporal lobe measuring 4.4 x 6.0 x 4.5 cm and the second in the left occipital lobe measuring 3.8 x 4.3 x 4.3 cm. There was significant surrounding edema with effacement of the lateral ventricle and overlying cortical sulci. Both lesions show extra- axial extension along the right convexity and along the left tentorium. There was no midline shift, tonsillar herniation or evidence of acute ischemia appreciated. 07/19/2022. Radiation oncology referral requested. Patient is seen for evaluation and discussion of the role of palliative radiation treatment. 07/19/2022. Patient is seen by Dr. Gloria (medical oncology). Allergies Allergy/AdvReac Type Severity Reaction Status Date / Time amlodipine AdvReac Intermediate SWELLING Verified 07/17/22 13:28 IN LEGS/PT NOT SURE Home Medications Medication Instructions Recorded Confirmed Type diphenoxylate-atropine 2.5 1 tab PO QID PRN Diarrhea 05/07/22 07/19/22 History mg-0.025 mg tablet (Lomotil) cholestyramine (with sugar) 4 gram 4 g PO TID #348.6 grams 05/25/22 07/19/22 Rx oral powder (Questran) Patient History Medical History RAFY (acute kidney injury) Anemia PT DENIES Chronic diarrhea REASON FOR UPCOMING COLONOSCOPY Dysphagia MUCH BETTER 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) Femoral neck fracture HX FALL SEP 2021, HIP FX / SX INTERVENTION Hip fracture History of colon polyps History of high blood pressure History of nonmelanoma skin cancer Ileus CHRONIC Localized swelling of both lower legs PROBLEM STARTED AFTER HIP FX IN SEP 2021, RIGHT LEG WORSE THAN LEFT - NO PAIN OR REDNESS - NO CHANGE FROM BASELINE Loss of appetite Low blood potassium BORDERLINE Low vitamin D level ? HX OR CURRENT STATUS Varicose vein of leg MOSTLY RIGHT PER PT Weight loss Surgical History H/O esophagogastroduodenoscopy History of cataract surgery bilt History of colonoscopy Hx of tonsillectomy Hx of total hip arthroplasty PARTIAL REPLACEMENT SEP 2021 D/T HIP FX, LEFT S/P hernia repair Bilateral inguinal hernia repair S/P rotator cuff repair HX RIGHT S/P tooth extraction HX Status post Mohs surgery X1 Family History Father , 93yo Diabetes Colonic polyp No cancer Mother , 87yo Alzheimer disease Daughter No problems noted. 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 Sales Required: No Beliefs That Will Affect Care: None marital status: Current Living Situation: Spouse Current Living Situation Comment: [facility] 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 Eyes: PERRL, conjunctivae normal, anicteric sclerae ENMT: external ear and nose normal, oropharynx normal Neck: trachea midline, no thyromegaly trachea midline Respiratory: normal respiratory effort, lungs clear to auscultation Cardiovascular: RRR, no murmur, no edema Gastrointestinal (Abdomen): The abdomen is somewhat distended with gas but is nontender with no masses or organomegaly appreciated. Musculoskeletal: no cyanosis or clubbing, extremities motor strength 5/5 Neurologic: PERRL, EOMI, accommodation nl, no face palsy, no dysarthria CN's II-XI intact bilaterally and moves all extremities Psychiatric: A+Ox3, euthymic affect Lymphatic: There is no palpable cervical, supraclavicular or axillary adenopathy appreciated. Results (Rad Onc) Laboratory Results: were reviewed and pertinent findings noted in HPI Pathology Results: were reviewed and pertinent findings noted in HPI Imaging Studies: were reviewed and pertinent findings noted in HPI Time Spent Attending This documentation has been prepared in full by Dr. Lira. I have personally reviewed the services described and have reviewed the documentation to ensure its accuracy. I spent 25 minutes with direct face to face interaction with the patient which included obtaining clinical information, recommending a plan of action and answ ering questions. I spent 20 minutes reviewing his chart, discussion with the patient's family, review of scans and preparation of this document. Yes hello everybody every once in the okay what it would any Megan with weight I am not hearing if this is a second okay and and just on the final what they want to do knee me check the other images ARACELI
[2022-07-19] MEDS ORDERED: hydrALAZINE HCL 20 MG/ML VIAL IV PRN (14:22)
[2022-07-19] MEDS: dexAMETHasone 4 MG in SYRINGE 0 ML IV SCH ×2 (16:58→23:44)
[2022-07-19] MEDS ORDERED: DEXAMETHASONE SOD INJ 4 MG/ML VIAL IV SCH (17:00)
--- NOTE | 2022-07-19 17:23 | Electrocardiogram Report ---
Test Reason : Blood Pressure : / mmHG Vent. Rate : 057 BPM Atrial Rate : 000 BPM P-R Int : 000 ms QRS Dur : 086 ms QT Int : 424 ms P-R-T Axes : 000 -09 -43 degrees QTc Int : 412 ms Sinus rhythm with frequent Premature atrial complexes Voltage criteria for left ventricular hypertrophy Old Inferior infarct Abnormal ECG When compared with ECG of 21-DEC-2021 17:21, Vent. rate has decreased BY 29 BPM Criteria for Old Inferior infarct is now Present T wave inversion now evident in Inferior leads Nonspecific T wave abnormality no longer evident in Lateral leads Confirmed by Lucas Churchill ([id number]) on 07/19/2022 5:23:03 PM Referred By: Confirmed By:Lucas Churchill
--- NOTE | 2022-07-19 17:28 | Electrocardiogram Report ---
Test Reason : Blood Pressure : / mmHG Vent. 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
[2022-07-20] MEDS: dexAMETHasone 4 MG in SYRINGE 0 ML IV SCH ×4 (04:43→22:58)
[2022-07-20 07:12] LABS: Hematocrit (blood only) 32.1 % (42.0-52.0); Hemoglobin 10.8 g/dl (14.0-18.0); Immature Granulocytes # (auto) 0.03 K/uL (0.01-0.20); Immature Granulocytes % (auto) 0.6 %; Lymphocytes # (auto) 0.56 K/uL (1.2-3.4); Lymphocytes % (auto) 10.3 %; Mean Corpuscular Hemoglobin 32.8 pg (25.0-34.0); Mean Corpuscular Hgb Conc 33.6 g/dL (32.0-36.0); Mean Corpuscular Volume 97.6 fL (80.0-100.0); Monocytes # (auto) 0.09 K/uL (0.11-0.59); Monocytes % (auto) 1.7 %; Neutrophils # (auto) 4.74 K/uL (1.40-6.50); Neutrophils % (auto) 87.4 %; Platelet Count 156 K/uL (130-400); RDW Coefficient of Variation 13.7 % (11.5-14.5); RDW Standard Deviation 49.5 fL (36.4-46.3); Red Blood Count 3.29 M/uL (4.70-6.10); White Blood Count 5.42 K/ul (4.8-10.8)
[2022-07-20 07:32] LABS: Albumin Globulin Ratio 1.5 (0.9-2); Albumin Level 3.7 gm/dl (3.4-5.0); BUN Creatinine Ratio 23.9 (10-20); Bilirubin,Total 0.6 mg/dl (0.2-1.0); Calcium 9.6 mg/dl (8.6-10.3); Creatinine Clr Calc Pharmacy 40.5 ml/min; Est GFR (Non-African American) 56.9 ml/min; Globulin 2.5 gm/dl (2.5-4.0); Magnesium 1.9 mg/dl (1.7-2.4); Potassium 4.1 mmol/L (3.5-5.1); Total Protein 6.2 gm/dl (6.0-8.3)
[2022-07-20 07:40] LABS: INR 1.1 (0.9-1.1); Prothrombin Time 12.2 Seconds (9.0-12.0)
[2022-07-20] MEDS ORDERED: OPTIRAY 320 500ml IV ONE (07:47)
[2022-07-20] MEDS: PANTOprazole 40 MG TAB PO SCH (07:52)
--- NOTE | 2022-07-20 10:18 | CT Scan Report ---
CT head/brain wo con CLINICAL HISTORY: monitoring brain mets/hemorrhage Technique: Contiguous axial CT images of the head were acquired from the base of the skull to the evonne yosvany without intravenous contrast administration. Images were viewed in brain, subdural and bone [facility]. Automated dose lowering techniques and/or adjustment according to patient size were utilized for this exam. Comparison: Comparison is made to CT head 07/19/2022 Findings: Overall similar appearance of the left occipital lobe measuring approximately 40 x 33 mm. Right tempo ral lesion appears to have minimally increased in size, previously measured 49 x 41 mm, now measures 56 x 41 mm. Surrounding edema is seen bilaterally with mass effect and minimal left foot midline naima ft of approximately 3 mm. Imaged portions of the paranasal sinuses and mastoid air cells are clear. The orbits appear normal. There are no acute fractures of the calvaria or scalp swelling. Impression: Apparent minimal increase in size of right temporal lesion, which may be due to patient positioning, less likely interval increase in hemorrhage. The left occipital lesion is unchanged. Findings are com patible with metastatic disease, dural extension is partially visualized and better seen on MRI. ACT 112: Negative or not required by law. Electronically signed by: Chun Daniels M.D. 07/20/2022 10:16 AM
--- NOTE | 2022-07-20 10:27 | Palliative Care Consultation ---
Date of Consultation July 20, 2022 Assessment & Plan (1) Palliative care encounter: I spoke with Mr. Ortiz and his at bedside. He tells me that he had been doing well prior to admission though his reports rapid change in his memory. [place] and very much wants to be outside. His is aware of the tumors in his brain and supportive of palliative radiation and IV steroids with the hope of improving his memory and mental status. She tells me that they have discussed goals of care together and that everything is laid out. While they are interested in radiation therapy, they would not want more aggressive treatment or procedures. Their goal is for [place] to [place] and live as well as possible. She reports that they have good support, both at [place], and from family and friends. History of Present Illness Reason for Consultation: goals of care Requesting Physician: Dr. Mckeon Attending Physician: Lokesh Mckeon History of Present Illness 86 yo gentleman with history of Stage IIIB esophageal cancer who is s/p chemoradiation therapy. He completed therapy approximately one year ago and is being followed by Dr. Gloria. He does have a history of PE in since his diagnosis and has been on eliquis which was stopped on admission. He presented to his PCP earlier this week with complaint of progressive memory problems. CT shows two large hemorrhagic lesions in the right temporal and left occipital lobes, confirmed by MRI. He was further evaluation and treatment. He is on IV decadron and has been seen by radiation oncology. He is having simulation study today. He is awake and alert. He tells me that he did not have any discomfort or difficulty tolerating the simulation this morning. He denies pain or dyspnea. He does have some mild confusion and is frustrated with being confined to the hospital and not able to get up and walk around as he'd like. Allergies Allergy/AdvReac Type Severity Reaction Status Date / Time amlodipine AdvReac Intermediate SWELLING Verified 07/17/22 13:28 IN LEGS/PT NOT SURE Home Medications Medication Instructions Recorded Confirmed Type diphenoxylate-atropine 2.5 1 tab PO QID PRN Diarrhea 05/07/22 07/19/22 History mg-0.025 mg tablet (Lomotil) cholestyramine (with sugar) 4 gram 4 g PO TID #348.6 grams 05/25/22 07/19/22 Rx oral powder (Questran) Patient History Medical History RAFY (acute kidney injury) Anemia PT DENIES Chronic diarrhea REASON FOR UPCOMING COLONOSCOPY Dysphagia MUCH BETTER 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) Femoral neck fracture HX FALL SEP 2021, HIP FX / SX INTERVENTION Hip fracture History of colon polyps History of high blood pressure History of nonmelanoma skin cancer Ileus CHRONIC Localized swelling of both lower legs PROBLEM STARTED AFTER HIP FX IN SEP 2021, RIGHT LEG WORSE THAN LEFT - NO PAIN OR REDNESS - NO CHANGE FROM BASELINE Loss of appetite Low blood potassium BORDERLINE Low vitamin D level ? HX OR CURRENT STATUS Varicose vein of leg MOSTLY RIGHT PER PT Weight loss Surgical History H/O esophagogastroduodenoscopy History of cataract surgery bilt History of colonoscopy Hx of tonsillectomy Hx of total hip arthroplasty PARTIAL REPLACEMENT SEP 2021 D/T HIP FX, LEFT S/P hernia repair Bilateral inguinal hernia repair S/P rotator cuff repair HX RIGHT S/P tooth extraction HX Status post Mohs surgery X1 Family History Father , 93yo Diabetes Colonic polyp No cancer Mother , 87yo Alzheimer disease Daughter No problems noted. 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 many Children do You have: 0 Feels Safe at Home: Yes Childhood Exposure to Second-Hand Smoke: No Diet: regular caffeine: Yes (coffee) during the past year weight has: decreased > 10 lbs Dental Care, Regularly: Yes Physical Activity Frequency: 1-2 Times per Week Physical Activity Frequency Comment: walking Seatbelt Use: always Sunscreen Use: Yes Do you think of yourself as: straight/heterosexual Assistive Devices: Cane, Glasses and Walker Review of Systems Review of Systems: ESAS Pain 0/3 Dyspnea 0/3 NAusea 0/3 Anxiety 1/3 Drowsiness 0/3 Physical Exam Constitutional: no acute distress Respiratory: normal respiratory effort; no labored breathing Cardiovascular: Rate/Rhythm: regular rate and regular rhythm Neurologic: awake and + confused Results & Data Vital Signs (Past 12 Hours) Vital Signs Temp Pulse Pulse Resp BP Pulse Ox O2 Del Method 07/20/22 07:38 97.5 F L 58 L 18 149/74 H 98 Room Air 07/20/22 04:07 97.7 F 55 L 18 148/76 H 97 Room Air 07/20/22 00:02 56 L 07/19/22 23:35 98.1 F 57 L 18 117/59 L 97 Room Air PG Care Time/CCT Total # of Minutes Spent Total Time Spent with Patient: Total time spent is greater than 50% in coordination of care (as documented) at patient's floor/unit and/or counseling patient: Coding Level of Care Code 31907 INT INP/OBS CARE 2/55MIN Diagnoses Palliative care encounter Z51.5
--- NOTE | 2022-07-20 23:07 | Hospitalist Progress Note ---
Date of Service July 20, 2022 Assessment & Plan (1) Metastatic cancer to brain: Plan: -Admit to he PCU on tele -Currently stable and without focal neuro defects -CT of the brain today showing 2 large hemorrhagic masses as detailed above with significant surrounding edema and mass effect with trace subdural extension of blood along the right convexity adjacent to the hemorrhagic lesion. -[facility] contacted by both ED and Hospital Med providers, after f urther discussions with family they would only want conservative treatment at this time -Last does of Jose was 48 hours ago, continue to hold all anticoagulation -Continue 4 mg IV dexamethasone q6h, will add prn labetalol for systolic BP>160 mmhg imaging obtained, patient will have radiation therapy as an outpatient. (2) A-fib: Plan: -ECG today shows possible new onset afib with slow ventricular, which would be new for him -HR currently well controlled (3) Memory change: Plan: -Likely due to new brain mets -Continue monitoring as described in brain metastases plan (4) Hypertension: Plan: -Stable -Continue prn labetalol for systolic BP>160 per Neurosurgery recommendations (5) GERD (gastroesophageal reflux disease): Plan: -Daily Protonix while on steroids (6) Esophageal adenocarcinoma: Plan: -Oncology consult placed, not currently on treatement will have followup with oncology severe malnutrition Review of senior software quality engineer consult reveals pt with wt loss of 5.3% in the past month. Pt has chronic severe malnutrition evidenced by chronic inadequate food and nutrient intake and chronic wt loss. PO intake at meals is 50% or less Treatment: boost GC bid with meals, regular diet as tolerated, Risk Factor(s): esophageal adenocarcinoma with newly noted mets to brain Admission and Anticipated Discharge Date Admission Date: July 19, 2022 Subjective 86 yo male reports feeling better. He has no new complaints. Review of Systems Review of Systems: All systems reviewed & are unremarkable except as noted in HPI & below Physical Exam Physical Exam: Patient is lying in bed, moving all extremites. Oriented appropriately. Patient is in no acute distress, calm and cooperative during the exam Results & Data Results & Data Vital Signs (Past 12 Hours) Vital Signs Temp Pulse Pulse Resp BP BP Pulse Ox 07/20/22 19:19 36.3 C L 57 L 18 148/73 H 96 07/20/22 15:31 36.3 C L 67 20 169/86 H 94 07/20/22 15:20 54 L 07/20/22 11:39 36.3 C L 51 L 18 133/68 99 O2 Del Method 07/20/22 19:19 Room Air 07/20/22 15:31 Room Air 07/20/22 15:20 07/20/22 11:39 Room Air PG Care Time/CCT Total # of Minutes Spent Total Time Spent with Patient: Total time spent is greater than 50% in coordination of care (as documented) at patient's floor/unit and/or counseling patient: Coding Level of Care Code 60653 SUB INP/OBS CARE 2/35MIN Diagnoses Metastatic cancer to brain C79.31 A-fib I48.91 Memory change R41.3 Hypertension I10 GERD (gastroesophageal reflux disease) K21.9 Esophageal adenocarcinoma C15.9
[2022-07-21 06:10] LABS: Albumin Globulin Ratio 1.4 (0.9-2); Albumin Level 3.4 gm/dl (3.4-5.0); BUN Creatinine Ratio 27.7 (10-20); Bilirubin,Total 0.5 mg/dl (0.2-1.0); Calcium 9.3 mg/dl (8.6-10.3); Creatinine Clr Calc Pharmacy 42.3 ml/min; Est GFR (African American) 69.5 ml/min; Globulin 2.4 gm/dl (2.5-4.0); Magnesium 1.8 mg/dl (1.7-2.4); Potassium 3.9 mmol/L (3.5-5.1); Total Protein 5.8 gm/dl (6.0-8.3)
[2022-07-21] MEDS: dexAMETHasone 4 MG in SYRINGE 0 ML IV SCH ×2 (06:13→11:09)
[2022-07-21 06:18] LABS: Hematocrit (blood only) 28.7 % (42.0-52.0); INR 1.1 (0.9-1.1); Immature Granulocytes # (auto) 0.06 K/uL (0.01-0.20); Immature Granulocytes % (auto) 0.6 %; Lymphocytes # (auto) 0.62 K/uL (1.2-3.4); Lymphocytes % (auto) 6.6 %; Mean Corpuscular Hemoglobin 33.6 pg (25.0-34.0); Mean Corpuscular Hgb Conc 34.8 g/dL (32.0-36.0); Mean Corpuscular Volume 96.3 fL (80.0-100.0); Mean Platelet Volume 10.1 fL (9.4-12.4); Monocytes # (auto) 0.28 K/uL (0.11-0.59); Neutrophils # (auto) 8.43 K/uL (1.40-6.50); Neutrophils % (auto) 89.8 %; Platelet Count 135 K/uL (130-400); Prothrombin Time 12.4 Seconds (9.0-12.0); RDW Coefficient of Variation 13.5 % (11.5-14.5); RDW Standard Deviation 48.3 fL (36.4-46.3); Red Blood Count 2.98 M/uL (4.70-6.10); White Blood Count 9.39 K/ul (4.8-10.8)
[2022-07-21] MEDS: PANTOprazole 40 MG TAB PO SCH (08:54)
--- NOTE | 2022-07-21 11:29 | Discharge Summary ---
Date of Service July 21, 2022 Admission HPI Per Admitting Provider Maximiliano is a 86 year old male with a PMH significant for stage 3B esophageal adenocarcinoma (Follows with Dr. Gloria) S/P Chemo and radiation, previous PE S/P 6 months of Eliquis therapy, HTN and GERD who presented to the [facility] ED on 07/19/[address] of the head earlier today. The patient had completed chemotherapy and radiation last year for his adenocarcinoma of the esophagus and had been in remission. Over the past 6 weeks his states that he has had progressive memory issues, the patient denies any other neurologic symptoms. They saw his PCP yesterday for the ongoing memory issues on 07/17 who stopped his Eliquis at that time as he had completed 6 months of treatment for PE. The saw Dr. Gloria yesterday who ordered the outpatient CT head obtained today which was read as "1. There are 2 large hemorrhagic masses as detailed above with significant surrounding edema and mass effect. This likely represents metastatic esophageal cancer given the patient's history. 2. There is trace subdural ext ension of blood along the right convexity adjacent to the hemorrhagic lesion. 3. There is no evidence of acute territorial ischemia by CT criteria. No midline shift is seen.". Dr. Gloria sent the patient to the ED due to these results. In the ED the patient's vitals were stable. He was without major lab abnormalities. [facility] was consulted to determine if transfer was need. The patient and his family are not interested in surgical intervention for possible metastases removal and would not want intervention in the event that he would experience a large intracranial hemorrhage. At that time the Neurosurgeon (Dr. Schmidt) recommended consultation for possible radiation therapy in addition to IV steroid therapy. Dr. Gloria recommended the patient be admitted and started on 4 mg IV dexamethasone q6h. At the time of the exam the patient was sitting in bed in no acute distress with his and daughter sitting bedside. They confirmed the 6 week hx of progressive memory issues, otherwise his only complaints have been chronic diarrhea, which has been controlled recently on Lomotil. I had another long discussion with them to confirm his wishes. He confirms that he does not want surgery to try and remove or reduce the brain metastases and would not want to be transferred to a tertiary care center in the event of larger intracranial bleed. If he were to clinically decline he would want us to transition him to comfort measures, his family is in agreement. He also confirms that he is a DNR/DNI, his and daughter would make medical decisions for him if he could not make them himself. They are interested in radiation therapy and conservative medical management at this time. He currently denies fever, chills, headache, changes in vision, hearing, taste, and smell, chest pain, sob, abd pain, nausea, vomiting, diarrhea, dysuria, hematuria, melena, LE swelling and recent trauma. I called and spoke with Dr. Schmidt to confirm the conservative treatment plan, appreciate his help. He agrees with the 6 mg IV dexamethasone q6h, recommends keeping the patient's systolic BP below 160 mmhg, and agrees with the radiation oncology consult. We can get a repeat CT of the head tomorrow morning or sooner if any clinical status changes. P Principal Diagnosis problem 1 Discharge Exam Patient is lying in bed, moving all extremites. Oriented appropriately. Patient is in no acute distress, calm and cooperative during the exam Discharge Data Allergies Allergy/AdvReac Type Severity Reaction Status Date / Time amlodipine AdvReac Intermediate SWELLING Verified 07/17/22 13:28 IN LEGS/PT NOT SURE Consultations 07/19/22 10:53 Consult Oncology Stat Consult Radiation Oncology Stat 07/19/22 22:22 Consult Palliative Care Routine Ordered Studies 07/19/22 10:49 MRI Brain [MR brain wo/w con] Stat 07/20/22 CT guide rad therapy head Routine 07/20/22 07:00 CT head/brain wo con Routine Hospital Course (1) Metastatic cancer to brain: -Admit to he PCU on tele -Currently stable and without focal neuro defects -CT of the brain today showing 2 large hemorrhagic masses as detailed above with significant surrounding edema and mass effect with trace subdural extension of blood along the right convexity adjacent to the hemorrhagic lesion. -[facility] contacted by both ED and Hospital Med providers, after further discussions with family they would only want conservative treatment at this time -Last does franki Garcia was 48 hours ago, continue to hold all anticoagulation -Continue 4 mg IV dexamethasone q6h, will add prn labetalol for systolic BP>160 mmhg will continue dexamethasone as an outpatient, will defer tapering to either radiation oncology, PCP, or palliative care provider. imaging obtained. patient will have radiation therapy as an outpatient. (2) A-fib: -ECG today shows possible new onset afib with slow ventricular, which would be new for him -HR currently well controlled (3) Memory change: -Likely due to new brain mets -Continue monitoring as described in brain metastases plan (4) Hypertension: -Stable -Continue prn labetalol for systolic BP>160 per Neurosurgery recommendations (5) GERD (gastroesophageal reflux disease): -Daily Protonix while on steroids (6) Esophageal adenocarcinoma: -Oncology consult placed, not currently on treatement will have followup with oncology severe malnutrition Review of lokie engineer consult reveals pt with wt loss of 5.3% in the past month. Pt has chronic severe malnutrition evidenced by chronic inadequate food and nutrient intake and chronic wt loss. PO intake at meals is 50% or less Treatment: boost GC bid with meals, regular diet as tolerated, Risk Factor(s): esophageal adenocarcinoma with newly noted mets to brain Total Time Total Time Spent Total Time Spent (In Minutes): 32 Discharge Plan Discharge Items Patient Disposition: Home - Self-Care Reason For Visit: ABNORMAL CT RESULTS Discharge Diagnosis: brain mets Activity: Resume your previous activity Non-emergency contact: Primary Care Provider Call non-emergency contact if: you have any medication questions Follow-up/Referrals: Adalberto Salcido, [Primary Care Provider] - 07/30/22 11:30 am (Follow up scheduled with Dr. Salcido on 07/30/22 @ 11:30am) Diet: Regular Addtl Attending Provider Instructions: Good morning Mr Ortiz, It was very nice to meet you, and your baljeet , Mrs. Lissett Ortiz. Here are some recommendations which should help you enjoy your life. We will continue decadron 4 mg every 6hours. This medicine will help decrease the swelling caused by the lesions in your brain. This will be continued at least for 7 days, and then you will be slowly tapered for a period of several weeks. I will defer further titration to the radiation oncologist and or Oncologist. Will also recommend followup with palliative care as an outpatient during this process. Radiation oncology will call you early next week to give you an appointment for the radiation treatment. Please also follow the recommendations given by the outpatient scheduler: Mixing whole milk and Ensure Plus to thin it out. Encouraged to consume 2-3 Ensure's daily. Hope the coupons help.Please remember to have a source of protein at every meal and to have 3 snacks/day including protein (could choose Ensure Plus at those times). Best wishes, Lokesh Mckeon MD Pending Studies at Discharge: No Stand-Alone Forms: My [facility], Smoking Cessation Medications and DC Order Prescriptions: New pantoprazole 40 mg Tablet,Delayed Release (Dr/Ec) 40 mg PO DAILY Qty: 30 0RF dexamethasone 4 mg tablet 4 mg PO QID 21 Days Qty: 84 0RF Continued cholestyramine (with sugar) [Questran] 4 gram powder 4 g PO TID Qty: 348.6 4RF Rx Instructions: administer w/meal; avoid other meds within 1hr before or 4-6hr after dose diphenoxylate-atropine [Lomotil] 2.5-0.025 mg tablet 1 tab PO QID PRN (Reason: Diarrhea) Discharge Orders: Discharge Order (Routine); Ordered 07/21/22 Ordered By: Lokesh Mckeon Admission Data Admit Date/Time: 07/19/22 10:53 Attending Provider: Lokesh Mckeon Admit Provider: Neymar Licona Primary Care Provider: Adalberto Salcido Other Providers: Sandra Gloria ; Lio De Anda ; Kristel Lopez Other Interventions: Discharge Summary Assessment (RN) Last Done: 07/21/22 12:38 Coding Level of Care Code 04534 INP/OBS DISCH >30 MIN Diagnoses Metastatic cancer to brain C79.31 A-fib I48.91 Memory change R41.3 Hypertension I10 GERD (gastroesophageal reflux disease) K21.9 Esophageal adenocarcinoma C15.9
[2022-07-21 11:42] VITALS: BP 129/57; PULSE 52; TEMP 97.7; O2SAT 98
== END 2022-07-21 13:12 | disposition home or self-care (01) | DRG 54 ==
LOC: ED 09:06 → 2S 10:53 → SUATTDRO 10:53 → 2S 11:50